=== PATIENT | female | born 1990 | race Caucasian/White ===

== ENCOUNTER 2016-08-12 00:04 | Inpatient (IN) | payer OTHER ==
[2016-08-12] MEDS ORDERED: SODIUM CHLORIDE 1,000 ML IV STA (00:27)
[2016-08-12] MEDS ORDERED: ONDANSETRON 4 MG/2 ML VIAL IVPB ONE (00:27)
--- NOTE | 2016-08-12 00:27 | PDOC ---
History of Present Illness - History of Present Illness Initial Comments: 08/12/16 01:33 Patient is a 25 year old female patient with significant medical hx of asthma, constipation and MR who is presenting to the ED with four days of cough, nausea , vomiting and diarrhea. Patient was seen yesterday in the ED for the same complaint along with low grade fever, muscle aches and abdominal pain. Patient is accompanied by parent who reports that the patients symptoms have persisted since her discharge. Today the patient had an episode of vomiting and three episodes of loose stooling. She also endorses the patients cough, nasal congestion, and fever have persisted. LNMP: 08/01/16 PMD: Raegan Islas MD ([facility]) <Sheryl Waters - Last Filed: 08/12/16 01:45> <Naomi Bautista - Last Filed: 08/12/16 02:16> <Jere Proctor - Last Filed: 08/12/16 05:10> - General Chief Complaint: Nausea/Vomiting Stated Complaint: VOMITING, ABDOMINAL PAIN Time Seen by Provider: 08/12/16 00:19 Past History <Sheryl Waters - Last Filed: 08/12/16 01:45> - Past Medical History Asthma: Yes (WEAK RESPIRATORY SYSTEM) GI Disorders: Yes (CONSTIPATION) - Psycho/Social/Smoking Cessation Hx Anxiety: No Suicidal Ideation: No Smoking Status: No Smoking History: Never smoked Number of Cigarettes Smoked Daily: 0 Information on smoking cessation initiated: No Hx Alcohol Use: No Drug/Substance Use Hx: No Substance Use Type: None <Naomi Bautista - Last Filed: 08/12/16 02:16> <Jere Proctor - Last Filed: 08/12/16 05:10> - Past Medical History Allergies/Adverse Reactions: Allergies Allergy/AdvReac Type Severity Reaction Status Date / Time amoxicillin [Amoxicillin] Allergy Intermediate Rash Verified 08/11/16 02:33 Home Medications: Ambulatory Orders Levofloxacin [Levaquin] 750 mg PO DAILY 08/12/16 Abd/GI Specific PMHX - Complaint Specific PMHX Colitis: No Diverticulitis: No Gall Bladder Disease: No GERD: No Hepatitis: No Irritable Bowel Synd (IBS): No Pancreatitis: No GI Ulcer Disease: No <Naomi Bautista - Last Filed: 08/12/16 02:16> Review of Systems - Review of Systems Comments:: 08/12/16 01:33 Provided by Parent: CONSTITUTIONAL: Present: fever, body aches Absent: chills, diaphoresis, generalized weakness, malaise, loss of appetite HEENT: Present: rhinorrhea, nasal congestion Absent: throat pain, throat swelling, difficulty swallowing, mouth swelling, ear pain, eye pain, visual changes CARDIOVASCULAR: Absent: chest pain, syncope, palpitations, irregular heart rate, lightheadedness , peripheral edema RESPIRATORY: Present: cough Absent: shortness of breath, dyspnea with exertion, orthopnea, wheezing, stridor , hemoptysis GASTROINTESTINAL: Present: nausea, vomiting, diarrhea Absent: abdominal pain, abdominal distension, constipation, melena, hematochezia GENITOURINARY: Absent: dysuria, frequency, urgency, hesitancy, hematuria, flank pain, genital pain MUSCULOSKELETAL: Absent: myalgia, arthralgia, joint swelling SKIN: Absent: rash, itching, pallor HEMATOLOGIC/IMMUNOLOGIC: Absent: easy bleeding, easy bruising, lymphadenopathy, frequent infections ENDOCRINE: Absent: unexplained weight gain, unexplained weight loss, heat intolerance, cold intolerance NEUROLOGIC: Absent: headache, focal weakness or paresthesia, dizziness, unsteady gait, seizure, mental status changes, bladder or bowel incontinence. PSYCHIATRIC: Absent: anxiety, depression, suicidal or homicidal ideation, hallucinations <Sheryl Waters - Last Filed: 08/12/16 01:45> *Physical Exam - Vital Signs Last Vital Signs Temp Pulse Resp BP Pulse Ox 99.1 F 104 H 15 124/81 100 08/12/16 00:25 08/12/16 00:25 08/12/16 00:25 08/12/16 00:25 08/12/16 00:25 - Physical Exam Comments: 08/12/16 01:34 GENERAL: Well developed, well nourished. Awake and alert. No acute distress. HEENT: Normocephalic, atraumatic. PERRLA, EOMI. No conjunctival pallor. Sclera are non- icteric. Moist mucous membranes. Oropharynx is clear. NECK: Supple. Full ROM. No JVD. Carotid pulses 2+ and symmetric, without bruits. No thyromegaly. No lymphadenopathy. CARDIOVASCULAR: Mild tachycardia. No murmurs, rubs, or gallops. Distal pulses are 2+ and symmetric. PULMONARY: No evidence of respiratory distress. Few scattered rhonchi. No wheezing or rales. ABDOMINAL: Soft. Non-tender. Non-distended. No rebound or guarding. No organomegaly. Normoactive bowel sounds. MUSCULOSKELETAL: Normal range of motion at all joints. No bony deformities or tenderness. No CVA tenderness. EXTREMITIES: No cyanosis. No clubbing. No edema. No calf tenderness. SKIN: Warm and dry. Normal capillary refill. No rashes. No jaundice. NEUROLOGICAL: Alert, awake, appropriate. Cranial nerves 2-12 intact. Normal speech. <Sheryl Waters - Last Filed: 08/12/16 01:45> - Vital Signs Last Vital Signs Temp Pulse Resp BP Pulse Ox 99.1 F 104 H 15 124/81 100 08/12/16 00:25 08/12/16 00:25 08/12/16 00:25 08/12/16 00:25 08/12/16 00:25 <Naomi Bautista - Last Filed: 08/12/16 02:16> - Vital Signs Last Vital Signs Temp Pulse Resp BP Pulse Ox 99.1 F 104 H 15 124/81 100 08/12/16 00:25 08/12/16 00:25 08/12/16 00:25 08/12/16 00:25 08/12/16 00:25 <Jere Proctor - Last Filed: 08/12/16 05:10> ED Treatment Course - LABORATORY CBC & Chemistry Diagram: 08/12/16 01:05 08/12/16 01:05 - ADDITIONAL ORDERS Additional order review: Laboratory Results 08/12/16 01:05 Serum , Qual Negative 08/12/16 01:05 RBC 4.24 MCV 77.6 L MCHC 34.2 RDW 18.2 H MPV 9.3 Neutrophils % 65.9 Lymphocytes % 16.9 Monocytes % 17.0 H Eosinophils % 0.1 Basophils % 0.1 - Medications Given in the ED: ED Medications Discontinued Medications Generic Name Dose Route Start Last Admin Trade Name Freq PRN Reason Stop Dose Admin Sodium Chloride 1,000 mls @ 1,000 mls/hr 08/12/16 00:27 08/12/16 01:10 Normal Saline - IV 08/12/16 01:26 1,000 mls/hr ASDIR STA Administration Ondansetron HCl 4 mg 08/12/16 00:27 08/12/16 01:11 Zofran Injection IVPB 08/12/16 00:28 4 mg ONCE ONE Administration <Sheryl Waters - Last Filed: 08/12/16 01:45> - LABORATORY CBC & Chemistry Diagram: 08/12/16 01:05 08/12/16 01:05 <Naomi Bautista - Last Filed: 08/12/16 02:16> - LABORATORY CBC & Chemistry Diagram: 08/12/16 01:05 08/12/16 01:05 - ADDITIONAL ORDERS Additional order review: Laboratory Results 08/12/16 08/12/16 08/12/16 02:13 01:05 01:05 Anticoagulation Therapy Y Puncture Site Right radial ABG pH 7.44 ABG pCO2 at Pt Temp 37.8 ABG pO2 at Pt Temp 111.0 H ABG HCO3 25.1 ABG O2 Sat (Measured) 98.2 ABG O2 Content 14.1 L ABG Base Excess 1.4 Juan José Test Positive O2 Delivery Device Nonrebreather Oxygen Flow Rate 100% Vent Mode Y Vent Rate Y Mechanical Rate Y Pressure Support Vent Y Sodium 142 Potassium 3.5 Chloride 101 Carbon Dioxide 29 Anion Gap 12 BUN 8 D Creatinine 0.8 D Creat Clearance w eGFR > 60 Random Glucose 98 Calcium 8.1 L Total Bilirubin 0.5 D AST 24 ALT 21 Alkaline Phosphatase 65 Total Protein 6.7 Albumin 3.4 Lipase 144 Serum , Qual Negative 08/12/16 01:05 RBC 4.24 MCV 77.6 L MCHC 34.2 RDW 18.2 H MPV 9.3 Neutrophils % 65.9 Lymphocytes % 16.9 Monocytes % 17.0 H Eosinophils % 0.1 Basophils % 0.1 - Medications Given in the ED: ED Medications Discontinued Medications Generic Name Dose Route Start Last Admin Trade Name Freq PRN Reason Stop Dose Admin Albuterol/Ipratropium 1 amp 08/12/16 01:30 08/12/16 01:39 Duoneb - NEB 08/12/16 01:31 1 amp ONCE ONE Administration Sodium Chloride 1,000 mls @ 1,000 mls/hr 08/12/16 00:27 08/12/16 01:10 Normal Saline - IV 08/12/16 01:26 1,000 mls/hr ASDIR STA Administration Aztreonam 1 gm/ Dextrose 50 mls @ 100 mls/hr 08/12/16 02:47 08/12/16 03:10 IVPB 08/12/16 03:16 100 mls/hr ONCE ONE Administration Protocol Ondansetron HCl 4 mg 08/12/16 00:27 08/12/16 01:11 Zofran Injection IVPB 08/12/16 00:28 4 mg ONCE ONE Administration <Jere Proctor - Last Filed: 08/12/16 05:10> Medical Decision Making - Medical Decision Making 08/12/16 01:38 25 yo female with past medicakl history of MR,asthma ,recurrent sinusitis was seen last night for fever NVD and cough LAST NIGHT her -influenza was negaitve yesterday cxr -please note that the radiologist read it as a possible early left lower infiltrate -she has a UTi and was started on levaquin -she returns with family tonight for same symptoms 08/12/16 01:42 08/12/16 02:03 PLAN- will do po challenge <Naomi Bautista - Last Filed: 08/12/16 02:16> *DC/Admit/Observation/Transfer - Attestations Scribe Attestion: 08/12/16 01:35 Documentation prepared by Sheryl Waters, acting as medical equipment repair technician for Naomi Bautista MD. <Sheryl Waters - Last Filed: 08/12/16 01:45> <Naomi Bautista - Last Filed: 08/12/16 02:16> - Discharge Dispostion Admit: Yes <Jere Proctor - Last Filed: 08/12/16 05:10> Diagnosis at time of Disposition: Pneumonia - Discharge Dispostion Condition at time of disposition: Stable - Referrals Referrals: Raegan Islas [Primary Care Provider] -
[2016-08-12] MEDS ORDERED: ONDANSETRON 4 MG/2 ML VIAL ONE (00:38)
[2016-08-12 01:16] LABS: BASOPHIL 0.1 % (0-2.0); EOSINOPHIL 0.1 % (0-4.5); MCH 26.5 pg (25.7-33.7); MCHC 34.2 g/dl (32.0-36.0); MEAN CELL VOLUME 77.6 fl (80-96); MEAN PLT VOLUME 9.3 fl (7.5-11.1); NEUTROPHILS 65.9 % (42.8-82.8); PLATELET COUNT 175 K/MM3 (134-434); RDW 18.2 % (11.6-15.6); WHITE BLOOD COUNT 4.5 K/mm3 (4.0-10.0)
[2016-08-12] MEDS ORDERED: ALBUTEROL SO4 2.5/IPRATROPIUM 0.5 INH SOL 3 ML VIAL.NEB. NEB ONE ×2 (01:30→01:48)
[2016-08-12 01:36] LABS: ALBUMIN 3.4 g/dl (3.4-5.0); ALK PHOS 65 U/L (45-117); ANION GAP 12 (8-16); BILIRUBIN,TOTAL 0.5 mg/dL (0.2-1.0); CALCIUM 8.1 mg/dL (8.5-10.1); CO2 29 mmol/L (21-32); CREATININE 0.8 mg/dL (0.55-1.02); GLUCOSE,RANDOM 98 mg/dL (74-106); SGOT/AST 24 U/L (15-37); SGPT/ALT 21 U/L (12-78); TOT PROT 6.7 g/dl (6.4-8.2)
[2016-08-12 02:26] LABS: ARTERIAL BLD GAS O2 SATURATION 98.2 % (90-98.9); ARTERIAL BLOOD GAS BASE EXCESS 1.4 meq/l (-2-2); ARTERIAL BLOOD GAS HCO3 25.1 meq/L (22-26); ARTERIAL BLOOD GAS pH 7.44 (7.35-7.45)
[2016-08-12 02:27] LABS: ALLENS TEST POSITIVE; ART PUNCT SITE RIGHT RADIAL; LPM/O2% 100%; PT. ON O2? YES; TYPE OF O2 NONREBREATHER
[2016-08-12] MEDS ORDERED: AZTREONAM 1 GM in DEXTROSE 5%-WATER - 50 ML IVPB ONE (02:47)
[2016-08-12 06:22] LABS: URINE APPEARANCE CLEAR; URINE BILIRUBIN NEGATIVE (NEGATIVE); URINE BLOOD NEGATIVE (NEGATIVE); URINE COLOR LTYELLOW; URINE GLUCOSE (UA) NEGATIVE (NEGATIVE); URINE KETONE 1+ (NEGATIVE); URINE LEUK ESTERASE NEGATIVE (NEGATIVE); URINE NITRITE NEGATIVE (NEGATIVE); URINE PROTEIN NEGATIVE (NEGATIVE); URINE UROBILINOGEN NEGATIVE E.U./dl (0.2-1.0)
[2016-08-12] MEDS ORDERED: ONDANSETRON 4 MG/2 ML VIAL IVPB PRN (06:42)
--- NOTE | 2016-08-12 06:49 | HP ---
CHIEF COMPLAINT: cough PCP: @[facility] HISTORY OF PRESENT ILLNESS: This is a 25 year old female with a past medical history of asthma, constipation , migraines, cerebral palsy and Down Syndrome who presented to the ED with a 4 day history of cough, nausea, vomiting and diarrhea. Pt was seen in the ED yesterday and treated with levaquin but mother feels she isn't any better. She had several episodes of vomiting prior to arrival to the ED, none since receiving zofran. Pt with no other complaints, mom denies any c/o chest pain. Mother also denies any hospitalization or institutional stay within the past 30 days. ER course was notable for: (1) Aztreonam given in ED (2) CXR + LLL infiltrate Recent Travel: mother denies PAST MEDICAL HISTORY: asthma constipation migraines GERD cerebral palsy and Down Syndrome PAST SURGICAL HISTORY: cyst removal posterior neck Social History: Smoking: denies Alcohol: denies Drugs: denies Family History: mom-brCA, HTN dad-HTN Allergies amoxicillin [Amoxicillin] Allergy (Intermediate, Verified 08/11/16 02:33) Rash Home Medications 3 Medication Instructions Recorded Albuterol 2.5/Ipratropium 0.5 1 neb NEB Q6H 08/12/16 [Duoneb -] Beclomethasone Dipropionate [Qvar] 8.7 gm IH DAILY 08/12/16 Levofloxacin [Levaquin] 750 mg PO DAILY 08/12/16 Loratadine [Claritin -] 10 mg PO DAILY 08/12/16 Mirabegron [Myrbetriq] 50 mg PO DAILY 08/12/16 Montelukast Na [Singulair -] 10 mg PO DAILY 08/12/16 Omeprazole 20 mg PO DAILY 08/12/16 Sennosides [Senna] 17.2 mg PO BID 08/12/16 Solifenacin Succinate [VESIcare] 10 mg PO DAILY 08/12/16 Topiramate [Topamax] 50 mg PO BID 08/12/16 REVIEW OF SYSTEMS CONSTITUTIONAL: Absent: fever, chills, diaphoresis, generalized weakness, malaise, loss of appetite, weight change HEENT: Absent: rhinorrhea, nasal congestion, throat pain, throat swelling, difficulty swallowing, mouth swelling, ear pain, eye pain, visual changes CARDIOVASCULAR: Absent: chest pain, syncope, palpitations, irregular heart rate, lightheadedness , peripheral edema RESPIRATORY: Present: cough Absent: shortness of breath, dyspnea with exertion, orthopnea, wheezing, stridor , hemoptysis GASTROINTESTINAL: Present: nausea, vomiting, diarrhea Absent: abdominal distension, constipation, melena, hematochezia GENITOURINARY: Absent: dysuria, frequency, urgency, hesitancy, hematuria, flank pain, genital pain MUSCULOSKELETAL: Absent: myalgia, arthralgia, joint swelling, back pain, neck pain SKIN: Absent: rash, itching, pallor HEMATOLOGIC/IMMUNOLOGIC: Absent: easy bleeding, easy bruising, lymphadenopathy, frequent infections ENDOCRINE: Absent: unexplained weight gain, unexplained weight loss, heat intolerance, cold intolerance NEUROLOGIC: Absent: headache, focal weakness or paresthesias, dizziness, unsteady gait, seizure, mental status changes, bladder or bowel incontinence PSYCHIATRIC: Absent: anxiety, depression, suicidal or homicidal ideation, hallucinations. PHYSICAL EXAMINATION Vital Signs - 24 hr 3 08/12/ 00:25 Temperature 99.1 F Pulse Rate 104 H Respiratory 15 Rate Blood Pressure 124/81 O2 Sat by Pulse 100 Oximetry (%) GENERAL: Awake, alert, and oriented to person, in no acute distress. HEAD: Normal with no signs of trauma. EYES: Pupils equal, round and reactive to light, extraocular movements intact, sclera anicteric, conjunctiva clear. No lid lag. EARS, NOSE, THROAT: Ears normal, nares patent, oropharynx clear without exudates. Moist mucous membranes. NECK: Normal range of motion, supple without lymphadenopathy, JVD, or masses. LUNGS: No wheezes. No accessory muscle use. + crackles Bilat bases HEART: Regular rate and rhythm, normal S1 and S2 without murmur, rub or gallop. ABDOMEN: Soft, nontender, not distended, normoactive bowel sounds, no guarding, no rebound, no masses. No hepatomegaly or splenomegaly. MUSCULOSKELETAL: Normal range of motion at all joints. No bony deformities or tenderness. No CVA tenderness. UPPER EXTREMITIES: 2+ pulses, warm, well-perfused. No cyanosis. No clubbing. Cap refill <2 seconds. No peripheral edema. LOWER EXTREMITIES: 2+ pulses, warm, well-perfused. No calf tenderness. No peripheral edema. NEUROLOGICAL: Cranial nerves II-XII intact. Normal speech. Normal gait. PSYCHIATRIC: Cooperative. Good eye contact. Appropriate mood and affect. SKIN: Warm, dry, normal turgor, no rashes or lesions noted. Laboratory Results - last 24 hr 3 08/12/16 08/12/16 08/12/16 01:05 01:05 01:05 WBC 4.5 RBC 4.24 Hgb 11.2 Hct 32.9 MCV 77.6 L MCHC 34.2 RDW 18.2 H Plt Count 175 MPV 9.3 Neutrophils % 65.9 Lymphocytes % 16.9 Monocytes % 17.0 H Eosinophils % 0.1 Basophils % 0.1 Anticoagulation Therapy Puncture Site ABG pH ABG pCO2 at Pt Temp ABG pO2 at Pt Temp ABG HCO3 ABG O2 Sat (Measured) ABG O2 Content ABG Base Excess Juan José Test O2 Delivery Device Oxygen Flow Rate Vent Mode Vent Rate Mechanical Rate Pressure Support Vent Sodium 142 Potassium 3.5 Chloride 101 Carbon Dioxide 29 Anion Gap 12 BUN 8 D Creatinine 0.8 D Creat Clearance w eGFR > 60 Random Glucose 98 Calcium 8.1 L Total Bilirubin 0.5 D AST 24 ALT 21 Alkaline Phosphatase 65 Total Protein 6.7 Albumin 3.4 Lipase 144 Serum , Qual Negative 3 ABG pH 7.44 (7.35-7.45) 08/12/16 02:13 ABG pCO2 at Pt Temp 37.8 mmHg (35-45) 08/12/16 02:13 ABG pO2 at Pt Temp 111.0 mmHg (80-100) H 08/12/16 02:13 ABG HCO3 25.1 meq/L (22-26) 08/12/16 02:13 ABG O2 Sat (Measured) 98.2 % (90-98.9) 08/12/16 02:13 ABG O2 Content 14.1 % vol (15-22) L 08/12/16 02:13 ABG Base Excess 1.4 meq/l (-2-2) 08/12/16 02:13 CXR: FINDINGS: Positive for opacification of the left lung base most likely due to left lower lobe infiltrate/pneumonitis possibly with associated left pleural effusion. The remainder of the lungs are clear. The heart size is magnified on this portable AP view but is probably somewhat enlarged. Lungs are clear. Jenn are normal. ASSESSMENT/PLAN: 25yF with PMH asthma, constipation, migraines, cerebral palsy and Down Syndrome presented to the ED with cough, nausea, vomiting and diarrhea. She is being admitted for pneumonia. Community Acquired Pneumonia/asthma - change aztreonam to ceftriaxone (verified with mom, pt has had ceftin in past without allergic reaction) and zithromax - duonebs - cont home qvar, singulair and loratadine gaastroenteritis - no longer vomiting - received IVF in ED, now tolerating po, trial of clear liquids, advance diet as tolerated. GERD - change home omeprazole to protonix constipation - hold home senna for now given LBM overactive bladder - cont home myrbetriq and vesicare migraines - cont home topamax DVT PPX - low risk, expected LOS <48h FEN - tolerating po now, defer IVF - BMP WNL - clear liquid diet, advance as tolerated Dispo: Pt currently requires inpatient care. Visit type - Emergency Visit Emergency Visit: Yes ED Registration Date: 08/12/16 Care time: The patient presented to the Emergency Department on the above date and was hospitalized for further evaluation of their emergent condition. - New Patient This patient is new to me today: Yes Date on this admission: 08/12/16 - Critical Care Critical Care patient: No
[2016-08-12] MEDS ORDERED: PANTOPRAZOLE 20 MG TABLET (FP) PO ONE (07:18)
[2016-08-12] MEDS ORDERED: PANTOPRAZOLE 40 MG TABLET (FP) ONE (08:29)
[2016-08-12] MEDS ORDERED: SOLIFENACIN SUCCINATE 5 MG TAB (FP) PO SCH (10:00)
[2016-08-12] MEDS ORDERED: TOPIRAMATE 25 MG TABLET (FP) PO SCH (10:00)
[2016-08-12] MEDS ORDERED: AZITHROMYCIN IVPB 250 ML IVPB SCH (10:00)
[2016-08-12] MEDS: SOLIFENACIN SUCCINATE 5 MG TAB (FP) PO SCH (11:26)
[2016-08-12] MEDS: TOPIRAMATE 25 MG TABLET (FP) PO SCH ×2 (11:26→22:15)
[2016-08-12] MEDS: MONTELUKAST NA 10 MG TABLET PO SCH (11:26)
[2016-08-12] MEDS: LORATADINE 10 MG TABLET PO SCH (11:26)
--- NOTE | 2016-08-12 11:50 | PN ---
Physical Exam: SUBJECTIVE: Patient seen and examined at bedside. Mother present. OBJECTIVE: Vital Signs Period Temp Pulse Resp BP Sys/Mejia Pulse Ox Last 24 Hr 97.9 F 89 18 123/71 96-97 GENERAL: The patient is awake, alert, in no acute distress. Answers questions simply and appropriately. HEAD: Normal with no signs of trauma. EYES: PERRL, extraocular movements intact, sclera anicteric, conjunctiva clear. No ptosis. ENT: Ears normal, nares patent, oropharynx injected appearance; moist mucous membranes. LUNGS: Bibasilar crackles, L>R; no wheezing HEART: Regular rate and rhythm, S1, S2 without murmur, rub or gallop. ABDOMEN: Soft, nontender, nondistended, normoactive bowel sounds, no guarding, no rebound EXTREMITIES: 2+ pulses, warm, well-perfused, no edema. NEUROLOGICAL: Cranial nerves II through XII grossly intact. Normal speech, gait not observed. Active Medications Generic Name Dose Route Start Last Admin Trade Name Freq PRN Reason Stop Dose Admin Albuterol/Ipratropium 1 amp 08/12/16 12:00 Duoneb - NEB QIDR ELEUTERIO Ceftriaxone Sodium 50 mls @ 100 mls/hr 08/12/16 10:00 Rocephin 1gm Ivpb (Pre-Docked) IVPB DAILY ELEUTERIO Azithromycin 250 mls @ 250 mls/hr 08/12/16 10:00 08/12/16 11:26 Zithromax 500mg Ivpb (Pre-Docked) IVPB 250 mls/hr DAILY ELEUTERIO Administration Loratadine 10 mg 08/12/16 10:00 08/12/16 11:26 Claritin - PO 10 mg DAILY ELEUTERIO Administration Montelukast Sodium 10 mg 08/12/16 10:00 08/12/16 11:26 Singulair - PO 10 mg DAILY ELEUTERIO Administration Non-Formulary Medication 8.7 gm 08/12/16 10:00 Beclomethasone Dipropionate [Qvar] IH DAILY ELEUTERIO Non-Formulary Medication 50 mg 08/12/16 10:00 Mirabegron [Myrbetriq] PO DAILY ELEUTERIO Ondansetron HCl 4 mg 08/12/16 06:42 Zofran Injection IVPB Q6H PRN NAUSEA Solifenacin 10 mg 08/12/16 10:00 08/12/16 11:26 Vesicare - PO 10 mg DAILY ELEUTERIO Administration Topiramate 50 mg 08/12/16 10:00 08/12/16 11:26 Topamax - PO 50 mg BID ELEUTERIO Administration ASSESSMENT/PLAN: 25 year-old woman with a PMH of cerebral palsy, Down's syndrome, asthma,and migraines. Admitted for LLL pneumonia. Bacterial LLL pneumonia --worsening LLL infiltrate seen on CXR --afebrile, no leukocytosis --flu negative, blood cultures pending, sputum culture ordered --azithromycin (day #1), ceftriaxone (day #1) --duonebs Sinusitis/Otitis media --completed abx course one week ago, cannot recall name of abx Asthma --duonebs --continue home Singulair, loratadine Migraines --stable Diarrhea --on antibiotics last week for ear infection/sinusitis --send off c.diff Cerebral palsy Down's syndrome --at baseline F/E/N Fluids: PO intake adequate Electrolytes: replete as indicated Nutrition: clears DVT prophylaxis: lovenox, oob, ambulation Dispo: continues to require inpatient care. Full Code. Visit type - Emergency Visit Emergency Visit: Yes ED Registration Date: 08/12/16 Care time: The patient presented to the Emergency Department on the above date and was hospitalized for further evaluation of their emergent condition. - New Patient This patient is new to me today: Yes Date on this admission: 08/12/16 - Critical Care Critical Care patient: No
[2016-08-12 12:54] VITALS: BMI 26.5
--- NOTE | 2016-08-12 14:22 | CONSULT ---
Consult Consult Specialty:: infectious diseases Reason for Consultation:: pneumonia - History of Present Illness Chief Complaint: cough,sob History of Present Illness: 25 year old female with a past medical history of asthma, constipation, migraines, cerebral palsy and Down Syndrome who came to the hospital with a 4 day history of cough, nausea, vomiting and diarrhea. patient was initially in the ER and was treated with levaquin and send home patient did not show improvement after patient patient has taken levaquin for couple of days. patient now started on ceftriaxone and zithromax her chest xray ahs progressively worsened and there is a new infiltrate patient is coughing a lot and producing yellow secretions also she looks to be very weak - History Source History Provided By: Medical Record, Transfer Record Limitations to Obtaining History: Clinical Condition - Past Medical History ...LMP: 08/01/16 ...: No - Alcohol/Substance Use Hx Alcohol Use: No - Smoking History Smoking history: Never smoked Aproximately how many cigarettes per day: 0 Home Medications - Allergies Allergies/Adverse Reactions: Allergies Allergy/AdvReac Type Severity Reaction Status Date / Time amoxicillin [Amoxicillin] Allergy Intermediate Rash Verified 08/11/16 02:33 - Home Medications Home Medications: Ambulatory Orders Albuterol 2.5/Ipratropium 0.5 [Duoneb -] 1 neb NEB Q6H 08/12/16 Beclomethasone Dipropionate [Qvar] 8.7 gm IH DAILY 08/12/16 Levofloxacin [Levaquin] 750 mg PO DAILY 08/12/16 Loratadine [Claritin -] 10 mg PO DAILY 08/12/16 Mirabegron [Myrbetriq] 50 mg PO DAILY 08/12/16 Montelukast Na [Singulair -] 10 mg PO DAILY 08/12/16 Omeprazole 20 mg PO DAILY 08/12/16 Sennosides [Senna] 17.2 mg PO BID 08/12/16 Solifenacin Succinate [VESIcare] 10 mg PO DAILY 08/12/16 Topiramate [Topamax] 50 mg PO BID 08/12/16 Review of Systems Unable to obtain ROS, reason: unable to obtain Physical Exam Vital Signs: Vital Signs Temperature 97.9 F 08/12/16 08:00 Pulse Rate 89 08/12/16 07:34 Respiratory Rate 18 08/12/16 07:34 Blood Pressure 123/71 02/27/17 07:34 O2 Sat by Pulse Oximetry (%) 97 08/12/16 07:35 Constitutional: Yes: Mild Distress Eyes: Yes: Conjunctiva Clear HENT: Yes: Atraumatic Neck: Yes: Supple, Trachea Midline Cardiovascular: Yes: Regular Rate and Rhythm Respiratory: Yes: Regular, Poor Air Entry, Rhonchi Gastrointestinal: Yes: Normal Bowel Sounds, Soft Musculoskeletal: Yes: Muscle Weakness Extremities: Yes: WNL Neurological: Yes: Alert, Other Imaging - Results Chest X-ray: Report Reviewed, Image Reviewed Assessment/Plan this patient continues to worsen inspite of taking levaquin now she is on ceftriaxone and zithro 25yF with PMH asthma, constipation, migraines, cerebral palsy and Down Syndrome with cough, nausea, vomiting and diarrhea. pneumonia GERD overactive bladder migraines i think we can go ahead and stop zithromax i am going to add vanco to her regimen if patient does not improve then i will change ceftriaxone to carbapenam patient could very well have had influenza which could have given to all of her symptoms plan d/c zithro will add vanco hydration await for all cx report
[2016-08-12] MEDS: CEFTRIAXONE 50 ML IVPB SCH (15:21)
[2016-08-12] MEDS: VANCOMYCIN 1 GRAM (PRE-DOCKED) 250 ML IVPB SCH (16:20)
[2016-08-12] MEDS: ALBUTEROL SO4 2.5/IPRATROPIUM 0.5 INH SOL 3 ML VIAL.NEB. NEB SCH (19:14)
[2016-08-13] MEDS: ALBUTEROL SO4 2.5/IPRATROPIUM 0.5 INH SOL 3 ML VIAL.NEB. NEB SCH ×3 (06:30→17:06)
[2016-08-13 07:53] LABS: MCH 26.4 pg (25.7-33.7); MCHC 33.5 g/dl (32.0-36.0); MEAN CELL VOLUME 78.8 fl (80-96); MEAN PLT VOLUME 9.2 fl (7.5-11.1); PLATELET COUNT 176 K/MM3 (134-434); RDW 18.4 % (11.6-15.6); WHITE BLOOD COUNT 4.8 K/mm3 (4.0-10.0)
[2016-08-13 09:04] LABS: CALCIUM 8.4 mg/dL (8.5-10.1); CREATININE 0.7 mg/dL (0.55-1.02); MAGNESIUM 2.3 mg/dL (1.8-2.4)
[2016-08-13] MEDS: CEFTRIAXONE 50 ML IVPB SCH (10:08)
[2016-08-13] MEDS: MONTELUKAST NA 10 MG TABLET PO SCH (10:17)
[2016-08-13] MEDS: TOPIRAMATE 25 MG TABLET (FP) PO SCH ×2 (10:17→22:39)
[2016-08-13] MEDS: ENOXAPARIN NA (PORCINE) 40 MG/0.4 ML DISP.SYRIN SQ SCH (10:18)
[2016-08-13] MEDS: SOLIFENACIN SUCCINATE 5 MG TAB (FP) PO SCH (10:18)
[2016-08-13] MEDS: LORATADINE 10 MG TABLET PO SCH (10:18)
[2016-08-13] MEDS: VANCOMYCIN 1 GRAM (PRE-DOCKED) 250 ML IVPB SCH (10:47)
--- NOTE | 2016-08-13 11:42 | PN ---
Physical Exam: SUBJECTIVE: Patient seen and examined oob to chair. Says feels better. Numerous sputum-tissues on tray. OBJECTIVE: Vital Signs Period Temp Pulse Resp BP Sys/Mejia Pulse Ox Last 24 Hr 98.6 F-99.8 F 86-98 16-22 110-124/61-72 96 GENERAL: The patient is awake, alert, in no acute distress. Answers questions simply and appropriately. HEAD: Normal with no signs of trauma. EYES: PERRL, extraocular movements intact, sclera anicteric, conjunctiva clear. No ptosis. ENT: Ears normal, nares patent, oropharynx injected appearance; moist mucous membranes. LUNGS:+ Cough; bibasilar crackles, L>R; no wheezing HEART: Regular rate and rhythm, S1, S2 without murmur, rub or gallop. ABDOMEN: Soft, nontender, nondistended, normoactive bowel sounds, no guarding, no rebound EXTREMITIES: 2+ pulses, warm, well-perfused, no edema. NEUROLOGICAL: Cranial nerves II through XII grossly intact. Normal speech, gait not observed. Laboratory Results - last 24 hr 08/13/16 08/13/16 06:45 06:45 WBC 4.8 RBC 4.32 Hgb 11.4 Hct 34.1 MCV 78.8 L MCHC 33.5 RDW 18.4 H Plt Count 176 MPV 9.2 Neutrophils % 55.0 Lymphocytes % 28.0 D Monocytes % 16.0 H Promyelocytes 1 Differential Comment Manual diff done Sodium 143 Potassium 3.8 Chloride 106 Carbon Dioxide 25 Anion Gap 12 BUN 5 L D Creatinine 0.7 Random Glucose 87 Calcium 8.4 L Phosphorus 3.0 Magnesium 2.3 Active Medications Generic Name Dose Route Start Last Admin Trade Name Freq PRN Reason Stop Dose Admin Albuterol/Ipratropium 1 amp 08/12/16 12:00 08/13/16 06:30 Duoneb - NEB Not Given QIDR ELEUTERIO Enoxaparin Sodium 40 mg 08/13/16 10:00 08/13/16 10:18 Lovenox - SQ 40 mg DAILY ELEUTERIO Administration Ceftriaxone Sodium 50 mls @ 100 mls/hr 08/12/16 10:00 08/13/16 10:08 Rocephin 1gm Ivpb (Pre-Docked) IVPB 100 mls/hr DAILY ELEUTERIO Administration Vancomycin HCl 250 mls @ 166.667 mls/hr 08/12/16 14:45 08/13/16 10:47 Vancomycin (Pre-Docked) IVPB 166.667 mls/hr DAILY ELEUTERIO Administration Protocol Loratadine 10 mg 08/12/16 10:00 08/13/16 10:18 Claritin - PO 10 mg DAILY ELEUTERIO Administration Montelukast Sodium 10 mg 08/12/16 10:00 08/13/16 10:17 Singulair - PO 10 mg DAILY ELEUTERIO Administration Non-Formulary Medication 8.7 gm 08/12/16 10:00 Beclomethasone Dipropionate [Qvar] IH DAILY ELEUTERIO Non-Formulary Medication 50 mg 08/12/16 10:00 Mirabegron [Myrbetriq] PO DAILY ELEUTERIO Ondansetron HCl 4 mg 08/12/16 06:42 Zofran Injection IVPB Q6H PRN NAUSEA Solifenacin 10 mg 08/12/16 10:00 08/13/16 10:18 Vesicare - PO 10 mg DAILY ELEUTERIO Administration Topiramate 50 mg 08/12/16 10:00 08/13/16 10:17 Topamax - PO 50 mg BID ELEUTERIO Administration ASSESSMENT/PLAN 25 year-old woman with a PMH of cerebral palsy, Down's syndrome, asthma,and migraines. Admitted for LLL pneumonia. Bacterial LLL pneumonia --LLL infiltrate seen on CXR --afebrile, no leukocytosis --flu negative, blood cultures pending, sputum culture pending --ceftriaxone (day #2), vanc (day #2); azithromycin dc'd 08/12 --duonebs Sinusitis/Otitis media --completed abx course one week ago, cannot recall name of abx Asthma --duonebs --continue home Singulair, loratadine Migraines --stable Diarrhea --resolved Cerebral palsy Down's syndrome --at baseline F/E/N Fluids: PO intake adequate Electrolytes: replete as indicated Nutrition: regular diet DVT prophylaxis: lovenox, oob, ambulation Dispo: continues to require inpatient care. Full Code. Visit type - Emergency Visit Emergency Visit: Yes ED Registration Date: 08/12/16 Care time: The patient presented to the Emergency Department on the above date and was hospitalized for further evaluation of their emergent condition. - New Patient This patient is new to me today: No - Critical Care Critical Care patient: No
--- NOTE | 2016-08-13 12:25 | PN ---
Progress Note, Physician History of Present Illness: patient doing much better coughing much less says she feels much better - Current Medication List Current Medications: Active Medications Albuterol/Ipratropium (Duoneb -) 1 amp NEB QIDR [facility] Last Admin: 08/13/16 11:10 Dose: 1 amp Enoxaparin Sodium (Lovenox -) 40 mg SQ DAILY [facility] Last Admin: 08/13/16 10:18 Dose: 40 mg Ceftriaxone Sodium (Rocephin 1gm Ivpb (Pre-Docked)) 50 mls @ 100 mls/hr IVPB DAILY [facility] Last Admin: 08/13/16 10:08 Dose: 100 mls/hr Vancomycin HCl (Vancomycin (Pre-Docked)) 250 mls @ 166.667 mls/hr IVPB DAILY [facility] PRN Reason: Protocol Last Admin: 08/13/16 10:47 Dose: 166.667 mls/hr Loratadine (Claritin -) 10 mg PO DAILY [facility] Last Admin: 08/13/16 10:18 Dose: 10 mg Montelukast Sodium (Singulair -) 10 mg PO DAILY [facility] Last Admin: 08/13/16 10:17 Dose: 10 mg Non-Formulary Medication (Beclomethasone Dipropionate [Qvar]) 8.7 gm IH DAILY [facility] Non-Formulary Medication (Mirabegron [Myrbetriq]) 50 mg PO DAILY [facility] Ondansetron HCl (Zofran Injection) 4 mg IVPB Q6H PRN PRN Reason: NAUSEA Solifenacin (Vesicare -) 10 mg PO DAILY [facility] Last Admin: 08/13/16 10:18 Dose: 10 mg Topiramate (Topamax -) 50 mg PO BID [facility] Last Admin: 08/13/16 10:17 Dose: 50 mg - Objective Vital Signs: Vital Signs Temperature 98.6 F 08/13/16 06:00 Pulse Rate 86 08/13/16 06:00 Respiratory Rate 16 08/13/16 06:00 Blood Pressure 110/72 08/13/16 06:00 O2 Sat by Pulse Oximetry (%) 96 08/12/16 21:00 Constitutional: Yes: No Distress, Calm Cardiovascular: Yes: Regular Rate and Rhythm Respiratory: Yes: Regular, Poor Air Entry, Rhonchi Gastrointestinal: Yes: Normal Bowel Sounds, Soft Musculoskeletal: Yes: WNL Extremities: Yes: WNL Neurological: Yes: Alert, Oriented Psychiatric: Yes: Alert Labs: CBC, BMP 08/13/16 06:45 08/13/16 06:45 Assessment/Plan pneumonia GERD overactive bladder migraines plan continue current abx incentive urszula patient looking much better
[2016-08-13] MEDS ORDERED: PT OWN MED DRAWER 7, Y5N ONE (18:40)
[2016-08-14] MEDS: ALBUTEROL SO4 2.5/IPRATROPIUM 0.5 INH SOL 3 ML VIAL.NEB. NEB SCH ×4 (00:20→18:20)
[2016-08-14 07:57] LABS: BASOPHIL 0.2 % (0-2.0); EOSINOPHIL 0.8 % (0-4.5); MCH 26.4 pg (25.7-33.7); MCHC 34.1 g/dl (32.0-36.0); MEAN CELL VOLUME 77.5 fl (80-96); NEUTROPHILS 68.4 % (42.8-82.8); PLATELET COUNT 197 K/MM3 (134-434); RDW 17.7 % (11.6-15.6)
[2016-08-14 08:22] LABS: ALBUMIN 3.2 g/dl (3.4-5.0); ANION GAP 13 (8-16); CALCIUM 8.3 mg/dL (8.5-10.1); CO2 23 mmol/L (21-32); GLUCOSE,RANDOM 102 mg/dL (74-106); MAGNESIUM 2.1 mg/dL (1.8-2.4)
[2016-08-14 08:27] LABS: ALK PHOS 68 U/L (45-117); BILIRUBIN,TOTAL 0.4 mg/dL (0.2-1.0); CREATININE 0.7 mg/dL (0.55-1.02); SGOT/AST 17 U/L (15-37); SGPT/ALT 20 U/L (12-78); TOT PROT 6.2 g/dl (6.4-8.2)
[2016-08-14] MEDS: ENOXAPARIN NA (PORCINE) 40 MG/0.4 ML DISP.SYRIN SQ SCH (10:39)
[2016-08-14] MEDS: MONTELUKAST NA 10 MG TABLET PO SCH (10:39)
[2016-08-14] MEDS: TOPIRAMATE 25 MG TABLET (FP) PO SCH ×2 (10:39→22:05)
[2016-08-14] MEDS: LORATADINE 10 MG TABLET PO SCH (10:39)
[2016-08-14] MEDS: VANCOMYCIN 1 GRAM (PRE-DOCKED) 250 ML IVPB SCH (10:39)
[2016-08-14] MEDS: CEFTRIAXONE 50 ML IVPB SCH (10:39)
[2016-08-14] MEDS: SOLIFENACIN SUCCINATE 5 MG TAB (FP) PO SCH (10:40)
--- NOTE | 2016-08-14 15:19 | PN ---
Progress Note, Physician History of Present Illness: patient stable looking much better - Current Medication List Current Medications: Active Medications Albuterol/Ipratropium (Duoneb -) 1 amp NEB QIDR [facility] Last Admin: 08/14/16 12:00 Dose: 1 amp Enoxaparin Sodium (Lovenox -) 40 mg SQ DAILY [facility] Last Admin: 08/14/16 10:39 Dose: 40 mg Ceftriaxone Sodium (Rocephin 1gm Ivpb (Pre-Docked)) 50 mls @ 100 mls/hr IVPB DAILY [facility] Last Admin: 08/14/16 10:39 Dose: 100 mls/hr Vancomycin HCl (Vancomycin (Pre-Docked)) 250 mls @ 166.667 mls/hr IVPB DAILY [facility] PRN Reason: Protocol Last Admin: 08/14/16 10:39 Dose: 166.667 mls/hr Loratadine (Claritin -) 10 mg PO DAILY [facility] Last Admin: 08/14/16 10:39 Dose: 10 mg Montelukast Sodium (Singulair -) 10 mg PO DAILY [facility] Last Admin: 08/14/16 10:39 Dose: 10 mg Non-Formulary Medication (Beclomethasone Dipropionate [Qvar]) 8.7 gm IH DAILY [facility] Non-Formulary Medication (Mirabegron [Myrbetriq]) 50 mg PO DAILY [facility] Ondansetron HCl (Zofran Injection) 4 mg IVPB Q6H PRN PRN Reason: NAUSEA Solifenacin (Vesicare -) 10 mg PO DAILY [facility] Last Admin: 08/14/16 10:40 Dose: 10 mg Topiramate (Topamax -) 50 mg PO BID [facility] Last Admin: 08/14/16 10:39 Dose: 50 mg - Objective Vital Signs: Vital Signs Temperature 97.2 F L 08/14/16 06:00 Pulse Rate 91 H 08/14/16 06:00 Respiratory Rate 20 08/14/16 06:00 Blood Pressure 115/78 08/14/16 06:00 O2 Sat by Pulse Oximetry (%) 96 08/13/16 21:00 Constitutional: Yes: No Distress, Calm HENT: Yes: Atraumatic Cardiovascular: Yes: Regular Rate and Rhythm Respiratory: Yes: Regular, Other Gastrointestinal: Yes: Normal Bowel Sounds, Soft Musculoskeletal: Yes: WNL Extremities: Yes: WNL Neurological: Yes: Alert, Oriented Psychiatric: Yes: Alert Labs: CBC, BMP 08/14/16 06:00 08/14/16 06:00 Assessment/Plan pneumonia GERD overactive bladder migraines plan continue current abx incentive urszula patient looking much better will start deescalating abx from friday
--- NOTE | 2016-08-14 15:38 | PN ---
Physical Exam: SUBJECTIVE: Patient seen and examined at bedside. Pt. states that she is feeling better. She is sitting in bed eating her breakfast. OBJECTIVE: Vital Signs Period Temp Pulse Resp BP Sys/Mejia Pulse Ox Last 24 Hr 97.2 F-98.9 F 86-103 18-20 105-115/53-78 96 GENERAL: The patient is awake, alert, and fully oriented, in no acute distress. HEAD: Normal with no signs of trauma. EYES: PERRL, extraocular movements intact, sclera anicteric, conjunctiva clear. No ptosis. ENT: Ears normal, nares patent, oropharynx clear without exudates, moist mucous membranes. NECK: Trachea midline, full range of motion, supple. LUNGS: Bibasilar crackles. No wheezes, or rhonchi no accessory muscle use. HEART: Regular rate and rhythm, S1, S2 without murmur, rub or gallop. ABDOMEN: Soft, nontender, nondistended, normoactive bowel sounds, no guarding, no rebound, no hepatosplenomegaly, no masses. EXTREMITIES: 2+ pulses, warm, well-perfused, no edema. NEUROLOGICAL: Cranial nerves II through XII grossly intact. Normal speech, gait not observed. PSYCH: Normal mood, normal affect. SKIN: Warm, dry, normal turgor, no rashes or lesions noted Laboratory Results - last 24 hr 08/14/16 08/14/16 06:00 06:00 WBC 6.0 RBC 4.57 Hgb 12.1 Hct 35.4 MCV 77.5 L MCHC 34.1 RDW 17.7 H Plt Count 197 MPV 9.0 Neutrophils % 68.4 D Lymphocytes % 17.1 D Monocytes % 13.5 H Eosinophils % 0.8 D Basophils % 0.2 Sodium 140 Potassium 3.6 Chloride 104 Carbon Dioxide 23 Anion Gap 13 BUN 10 D Creatinine 0.7 Creat Clearance w eGFR > 60 Random Glucose 102 Calcium 8.3 L Magnesium 2.1 Total Bilirubin 0.4 AST 17 D ALT 20 Alkaline Phosphatase 68 Total Protein 6.2 L Albumin 3.2 L Active Medications Generic Name Dose Route Start Last Admin Trade Name Freq PRN Reason Stop Dose Admin Albuterol/Ipratropium 1 amp 08/12/16 12:00 08/14/16 12:00 Duoneb - NEB 1 amp QIDR ELEUTERIO Administration Enoxaparin Sodium 40 mg 02/28/17 10:00 08/14/16 10:39 Lovenox - SQ 40 mg DAILY ELEUTERIO Administration Ceftriaxone Sodium 50 mls @ 100 mls/hr 08/12/16 10:00 08/14/16 10:39 Rocephin 1gm Ivpb (Pre-Docked) IVPB 100 mls/hr DAILY ELEUTERIO Administration Vancomycin HCl 250 mls @ 166.667 mls/hr 08/12/16 14:45 08/14/16 10:39 Vancomycin (Pre-Docked) IVPB 166.667 mls/hr DAILY ELEUTERIO Administration Protocol Loratadine 10 mg 08/12/16 10:00 08/14/16 10:39 Claritin - PO 10 mg DAILY ELEUTERIO Administration Montelukast Sodium 10 mg 08/12/16 10:00 08/14/16 10:39 Singulair - PO 10 mg DAILY ELEUTERIO Administration Non-Formulary Medication 8.7 gm 08/12/16 10:00 Beclomethasone Dipropionate [Qvar] IH DAILY ELEUTERIO Non-Formulary Medication 50 mg 08/12/16 10:00 Mirabegron [Myrbetriq] PO DAILY [facility] Ondansetron HCl 4 mg 08/12/16 06:42 Zofran Injection IVPB Q6H PRN NAUSEA Solifenacin 10 mg 08/12/16 10:00 08/14/16 10:40 Vesicare - PO 10 mg DAILY ELEUTERIO Administration Topiramate 50 mg 08/12/16 10:00 08/14/16 10:39 Topamax - PO 50 mg BID ELEUTERIO Administration ASSESSMENT/PLAN: 25 year-old woman with a PMH of cerebral palsy, Down's syndrome, asthma,and migraines. Admitted for LLL pneumonia. Bacterial LLL pneumonia -- LLL infiltrate seen on CXR -- Afebrile, no leukocytosis. -- Flu negative, Blood cultures show no growth after 48 hours. Sputum culture shows normal respiratory navdeep. -- Ceftriaxone (day #3), vancomycin (day #3); azithromycin dc'd 08/12. ID following --Given this pneumonia developed while on antibiotics, concern for resistance, pt will require at least two more days of IV antibiotics -- Duonebs as scheduled. Sinusitis/Otitis media -- Completed abx course one week ago. Reports that she finished Levaquin. Asthma -- Duonebs -- Continue home Singulair, Loratadine Migraines -- Stable Diarrhea -- Resolved Cerebral palsy Down's syndrome -- At baseline F/E/N Fluids: PO intake adequate Electrolytes: Replete as indicated Nutrition: Regular diet DVT prophylaxis: lovenox, oob, ambulation Dispo: continues to require inpatient care. Full Code. Visit type - Emergency Visit Emergency Visit: Yes ED Registration Date: 08/12/16 Care time: The patient presented to the Emergency Department on the above date and was hospitalized for further evaluation of their emergent condition. - New Patient This patient is new to me today: Yes Date on this admission: 08/14/16 - Critical Care Critical Care patient: No
[2016-08-14] MEDS: SENNOSIDES 8.6MG TABLET (FP) PO SCH (22:05)
[2016-08-15] MEDS: ALBUTEROL SO4 2.5/IPRATROPIUM 0.5 INH SOL 3 ML VIAL.NEB. NEB SCH ×5 (00:17→23:08)
[2016-08-15] MEDS ORDERED: PT OWN MED DRAWER 7, Y5N ONE ×2 (07:05→08:41)
[2016-08-15 08:39] LABS: MCH 26.3 pg (25.7-33.7); MEAN CELL VOLUME 77.4 fl (80-96); MEAN PLT VOLUME 9.3 fl (7.5-11.1); PLATELET COUNT 237 K/MM3 (134-434); RDW 18.3 % (11.6-15.6); WHITE BLOOD COUNT 5.5 K/mm3 (4.0-10.0)
[2016-08-15] MEDS: VANCOMYCIN 1 GRAM (PRE-DOCKED) 250 ML IVPB SCH ×2 (08:45→11:29)
[2016-08-15] MEDS: MONTELUKAST NA 10 MG TABLET PO SCH ×2 (08:46→11:29)
[2016-08-15] MEDS: CEFTRIAXONE 50 ML IVPB SCH ×2 (08:46→11:29)
[2016-08-15] MEDS: TOPIRAMATE 25 MG TABLET (FP) PO SCH ×3 (08:46→21:24)
[2016-08-15] MEDS: ENOXAPARIN NA (PORCINE) 40 MG/0.4 ML DISP.SYRIN SQ SCH ×2 (08:47→11:29)
[2016-08-15] MEDS: SENNOSIDES 8.6MG TABLET (FP) PO SCH ×3 (08:47→21:24)
[2016-08-15] MEDS: LORATADINE 10 MG TABLET PO SCH ×2 (08:47→11:28)
[2016-08-15] MEDS: SOLIFENACIN SUCCINATE 5 MG TAB (FP) PO SCH ×2 (08:48→11:29)
[2016-08-15 09:04] LABS: ALBUMIN 3.3 g/dl (3.4-5.0); ALK PHOS 70 U/L (45-117); ANION GAP 11 (8-16); BILIRUBIN,TOTAL 0.4 mg/dL (0.2-1.0); CALCIUM 8.6 mg/dL (8.5-10.1); CO2 20 mmol/L (21-32); CREATININE 0.8 mg/dL (0.55-1.02); GLUCOSE,RANDOM 109 mg/dL (74-106); MAGNESIUM 2.3 mg/dL (1.8-2.4); SGOT/AST 14 U/L (15-37); SGPT/ALT 23 U/L (12-78); TOT PROT 6.5 g/dl (6.4-8.2)
--- NOTE | 2016-08-15 10:58 | PN ---
Physical Exam: SUBJECTIVE: Patient seen and examined at bedside. Pt. states that she is feeling a little better today, but still coughing. She is sitting in the hospital bed watching a movie, breathing easily. OBJECTIVE: Vital Signs Period Temp Pulse Resp BP Sys/Mejia Pulse Ox Last 24 Hr 97.6 F-99.2 F 92-107 18-20 105-118/53-70 GENERAL: The patient is awake, alert, and fully oriented, in no acute distress. HEAD: Normal with no signs of trauma. EYES: PERRL, extraocular movements intact, sclera anicteric, conjunctiva clear. No ptosis. ENT: Ears normal, nares patent, oropharynx clear without exudates, moist mucous membranes. NECK: Trachea midline, full range of motion, supple. LUNGS: Bibasillar crackles. Chest expansion equal, no wheezes, no accessory muscle use. HEART: Regular rate and rhythm, S1, S2 without murmur, rub or gallop. ABDOMEN: Soft, nontender, nondistended, normoactive bowel sounds, no guarding, no rebound, no hepatosplenomegaly, no masses. EXTREMITIES: 2+ pulses, warm, well-perfused, no edema. NEUROLOGICAL: Cranial nerves II through XII grossly intact. Normal speech, gait not observed. PSYCH: Normal mood, normal affect. SKIN: Warm, dry, normal turgor, no rashes or lesions noted Laboratory Results - last 24 hr 08/15/16 08/15/16 08:28 08:28 WBC 5.5 RBC 4.73 Hgb 12.5 Hct 36.6 MCV 77.4 L MCHC 34.0 RDW 18.3 H Plt Count 237 D MPV 9.3 Neutrophils % Y Lymphocytes % Y Sodium 141 Potassium 4.2 Chloride 110 H Carbon Dioxide 20 L Anion Gap 11 BUN 11 Creatinine 0.8 Creat Clearance w eGFR > 60 Random Glucose 109 H Calcium 8.6 Magnesium 2.3 Total Bilirubin 0.4 AST 14 L ALT 23 Alkaline Phosphatase 70 Total Protein 6.5 Albumin 3.3 L Active Medications Generic Name Dose Route Start Last Admin Trade Name Freq PRN Reason Stop Dose Admin Albuterol/Ipratropium 1 amp 08/12/16 12:00 08/15/16 06:49 Duoneb - NEB 1 amp QIDR ELEUTERIO Administration Enoxaparin Sodium 40 mg 08/13/16 10:00 08/15/16 08:47 Lovenox - SQ 40 mg DAILY ELEUTERIO Administration Ceftriaxone Sodium 50 mls @ 100 mls/hr 08/12/16 10:00 08/15/16 08:46 Rocephin 1gm Ivpb (Pre-Docked) IVPB 100 mls/hr DAILY ELEUTERIO Administration Vancomycin HCl 250 mls @ 166.667 mls/hr 08/12/16 14:45 08/15/16 08:45 Vancomycin (Pre-Docked) IVPB 166.667 mls/hr DAILY ELEUTERIO Administration Protocol Loratadine 10 mg 08/12/16 10:00 08/15/16 08:47 Claritin - PO 10 mg DAILY ELEUTERIO Administration Montelukast Sodium 10 mg 08/12/16 10:00 08/15/16 08:46 Singulair - PO 10 mg DAILY ELEUTERIO Administration Non-Formulary Medication 8.7 gm 08/12/16 10:00 Beclomethasone Dipropionate [Qvar] IH DAILY [facility] Non-Formulary Medication 50 mg 08/12/16 10:00 Mirabegron [Myrbetriq] PO DAILY [facility] Ondansetron HCl 4 mg 08/12/16 06:42 Zofran Injection IVPB Q6H PRN NAUSEA Senna 1 tab 08/14/16 22:00 08/15/16 08:47 Senna - PO 1 tab BID ELEUTERIO Administration Solifenacin 10 mg 08/12/16 10:00 08/15/16 08:48 Vesicare - PO 10 mg DAILY ELEUTERIO Administration Topiramate 50 mg 08/12/16 10:00 08/15/16 08:46 Topamax - PO 50 mg BID ELEUTERIO Administration ASSESSMENT/PLAN: 25 year-old woman with a PMH of cerebral palsy, Down's syndrome, asthma,and migraines. Admitted for LLL pneumonia. Bacterial LLL pneumonia -- LLL infiltrate seen on CXR -- Afebrile, no leukocytosis. -- Flu negative, Blood cultures show no growth after 72 hours. Sputum culture shows normal respiratory navdeep. -- Ceftriaxone (day #4), vancomycin (day #4); azithromycin dc'd 08/12. ID following --Given this pneumonia developed while on antibiotics, concern for resistance, pt will require at least one more day of IV antibiotics -- Duonebs as scheduled. Sinusitis/Otitis media -- Completed abx course one week ago. Reports that she finished Levaquin. Asthma -- Duonebs -- Continue home Singulair, Loratadine Migraines -- Stable Diarrhea -- Resolved Cerebral palsy Down's syndrome -- At baseline F/E/N Fluids: PO intake adequate Electrolytes: Replete as indicated Nutrition: Regular diet DVT prophylaxis: lovenox, oob, ambulation Dispo: continues to require inpatient care. Full Code. Visit type - Emergency Visit Emergency Visit: Yes ED Registration Date: 08/12/16 Care time: The patient presented to the Emergency Department on the above date and was hospitalized for further evaluation of their emergent condition. - New Patient This patient is new to me today: No - Critical Care Critical Care patient: No - Discharge Referral Referred to [facility] No
[2016-08-15 12:04] LABS: METAMYELOCYTE 3 % (0-2)
--- NOTE | 2016-08-15 14:11 | PN ---
Progress Note, Physician History of Present Illness: patient stable looking much better - Current Medication List Current Medications: Active Medications Albuterol/Ipratropium (Duoneb -) 1 amp NEB QIDR [facility] Last Admin: 08/15/16 11:29 Dose: 1 amp Enoxaparin Sodium (Lovenox -) 40 mg SQ DAILY [facility] Last Admin: 08/15/16 11:29 Dose: Not Given Ceftriaxone Sodium (Rocephin 1gm Ivpb (Pre-Docked)) 50 mls @ 100 mls/hr IVPB DAILY [facility] Last Admin: 08/15/16 11:29 Dose: Not Given Vancomycin HCl (Vancomycin (Pre-Docked)) 250 mls @ 166.667 mls/hr IVPB DAILY [facility] PRN Reason: Protocol Last Admin: 08/15/16 11:29 Dose: Not Given Loratadine (Claritin -) 10 mg PO DAILY [facility] Last Admin: 08/15/16 11:28 Dose: Not Given Montelukast Sodium (Singulair -) 10 mg PO DAILY [facility] Last Admin: 08/15/16 11:29 Dose: Not Given Non-Formulary Medication (Beclomethasone Dipropionate [Qvar]) 8.7 gm IH DAILY [facility] Non-Formulary Medication (Mirabegron [Myrbetriq]) 50 mg PO DAILY [facility] Ondansetron HCl (Zofran Injection) 4 mg IVPB Q6H PRN PRN Reason: NAUSEA Senna (Senna -) 1 tab PO BID [facility] Last Admin: 08/15/16 11:29 Dose: Not Given Solifenacin (Vesicare -) 10 mg PO DAILY [facility] Last Admin: 08/15/16 11:29 Dose: Not Given Topiramate (Topamax -) 50 mg PO BID [facility] Last Admin: 08/15/16 11:29 Dose: Not Given - Objective Vital Signs: Vital Signs Temperature 99.2 F 08/15/16 08:30 Pulse Rate 107 H 08/15/16 08:30 Respiratory Rate 20 08/15/16 08:30 Blood Pressure 105/58 08/15/16 08:30 O2 Sat by Pulse Oximetry (%) 95 08/15/16 09:00 Constitutional: Yes: No Distress, Calm Neck: Yes: Supple, Trachea Midline Cardiovascular: Yes: Regular Rate and Rhythm Respiratory: Yes: Regular, Other Gastrointestinal: Yes: Normal Bowel Sounds, Soft Musculoskeletal: Yes: WNL Extremities: Yes: WNL Neurological: Yes: Alert, Oriented Psychiatric: Yes: Alert Labs: CBC, BMP 08/15/16 08:28 08/15/16 08:28 Assessment/Plan pneumonia GERD overactive bladder migraines plan continue current abx incentive urszula patient looking much better deescalating abx from friday
[2016-08-15] MEDS: FLOVENT 44 MCG IH SCH (21:25)
[2016-08-16] MEDS ORDERED: PT OWN MED DRAWER 7, Y5N ONE ×3 (06:46→10:50)
[2016-08-16] MEDS: ALBUTEROL SO4 2.5/IPRATROPIUM 0.5 INH SOL 3 ML VIAL.NEB. NEB SCH ×4 (06:50→23:19)
[2016-08-16 07:54] LABS: BASOPHIL 0.7 % (0-2.0); EOSINOPHIL 1.6 % (0-4.5); MCH 26.6 pg (25.7-33.7); MCHC 33.7 g/dl (32.0-36.0); MEAN CELL VOLUME 78.9 fl (80-96); MEAN PLT VOLUME 10.3 fl (7.5-11.1); NEUTROPHILS 74.5 % (42.8-82.8); RDW 18.4 % (11.6-15.6)
[2016-08-16 08:19] LABS: WHITE BLOOD COUNT 5.9 K/mm3 (4.0-10.0)
[2016-08-16 08:23] LABS: ALBUMIN 3.2 g/dl (3.4-5.0); CALCIUM 8.1 mg/dL (8.5-10.1); MAGNESIUM 2.4 mg/dL (1.8-2.4)
[2016-08-16 08:27] LABS: ALK PHOS 65 U/L (45-117); ANION GAP 12 (8-16); BILIRUBIN,TOTAL 0.4 mg/dL (0.2-1.0); CO2 20 mmol/L (21-32); CREATININE 0.7 mg/dL (0.55-1.02); GLUCOSE,RANDOM 88 mg/dL (74-106); SGPT/ALT 23 U/L (12-78); TOT PROT 6.2 g/dl (6.4-8.2)
[2016-08-16 08:55] LABS: SGOT/AST 24 U/L (15-37)
[2016-08-16 09:15] LABS: ALBUMIN 3.2 g/dl (3.4-5.0); ALK PHOS 69 U/L (45-117); ANION GAP 9 (8-16); BILIRUBIN,TOTAL 0.4 mg/dL (0.2-1.0); CO2 22 mmol/L (21-32); CREATININE 0.7 mg/dL (0.55-1.02); GLUCOSE,RANDOM 101 mg/dL (74-106); MAGNESIUM 2.2 mg/dL (1.8-2.4); SGOT/AST 20 U/L (15-37); SGPT/ALT 24 U/L (12-78); TOT PROT 6.2 g/dl (6.4-8.2)
[2016-08-16 09:20] LABS: MCH 26.2 pg (25.7-33.7); MCHC 33.5 g/dl (32.0-36.0); MEAN CELL VOLUME 78.2 fl (80-96); MEAN PLT VOLUME 9.8 fl (7.5-11.1); PLATELET COUNT 218 K/MM3 (134-434); RDW 18.2 % (11.6-15.6); WHITE BLOOD COUNT 5.7 K/mm3 (4.0-10.0)
[2016-08-16] MEDS: CEFTRIAXONE 50 ML IVPB SCH (10:21)
[2016-08-16] MEDS: SOLIFENACIN SUCCINATE 5 MG TAB (FP) PO SCH (10:21)
[2016-08-16] MEDS: TOPIRAMATE 25 MG TABLET (FP) PO SCH ×2 (10:22→21:48)
[2016-08-16] MEDS: MYRBETRIQ 25 MG PO SCH (10:22)
[2016-08-16] MEDS: LORATADINE 10 MG TABLET PO SCH (10:22)
[2016-08-16] MEDS: ENOXAPARIN NA (PORCINE) 40 MG/0.4 ML DISP.SYRIN SQ SCH (10:22)
[2016-08-16] MEDS: SENNOSIDES 8.6MG TABLET (FP) PO SCH ×2 (10:22→21:48)
[2016-08-16] MEDS: MONTELUKAST NA 10 MG TABLET PO SCH (10:22)
[2016-08-16] MEDS: FLOVENT 44 MCG IH SCH ×2 (10:23→21:50)
[2016-08-16 11:32] LABS: METAMYELOCYTE 2 % (0-2); PLATELET COMMENT2 NO CLUMPING NOTED; PLATELET ESTIMATE ADEQUATE (NORMAL); POLYCHROMASIA 1+
[2016-08-16 11:33] LABS: ANISOCYTOSIS 1+; DOHLE BODIES 1+; MICROCYTOSIS 1+
[2016-08-16] MEDS: VANCOMYCIN 1 GRAM (PRE-DOCKED) 250 ML IVPB SCH (12:10)
--- NOTE | 2016-08-16 14:53 | PN ---
Progress Note, Physician History of Present Illness: patient says she is more sob coughing a bit more - Current Medication List Current Medications: Active Medications Albuterol/Ipratropium (Duoneb -) 1 amp NEB QIDR [facility] Last Admin: 08/16/16 11:15 Dose: 1 amp Enoxaparin Sodium (Lovenox -) 40 mg SQ DAILY [facility] Last Admin: 08/16/16 10:22 Dose: 40 mg Ceftriaxone Sodium (Rocephin 1gm Ivpb (Pre-Docked)) 50 mls @ 100 mls/hr IVPB DAILY [facility] Last Admin: 08/16/16 10:21 Dose: 100 mls/hr Vancomycin HCl (Vancomycin (Pre-Docked)) 250 mls @ 166.667 mls/hr IVPB DAILY [facility] PRN Reason: Protocol Last Admin: 08/16/16 12:10 Dose: 166.667 mls/hr Loratadine (Claritin -) 10 mg PO DAILY [facility] Last Admin: 08/16/16 10:22 Dose: 10 mg Montelukast Sodium (Singulair -) 10 mg PO DAILY [facility] Last Admin: 08/16/16 10:22 Dose: 10 mg Flovent Hfa 44 Mcg Inhaler - Patient Own Med 0 gm IH BID [facility] Last Admin: 08/16/16 10:23 Dose: 0.44 gm Myrbetriq Er 25 Mg Tablet - Patient Own Med 25 mg PO DAILY [facility] Last Admin: 08/16/16 10:22 Dose: 25 mg Ondansetron HCl (Zofran Injection) 4 mg IVPB Q6H PRN PRN Reason: NAUSEA Senna (Senna -) 1 tab PO BID [facility] Last Admin: 08/16/16 10:22 Dose: 1 tab Solifenacin (Vesicare -) 10 mg PO DAILY [facility] Last Admin: 08/16/16 10:21 Dose: 10 mg Topiramate (Topamax -) 50 mg PO BID [facility] Last Admin: 08/16/16 10:22 Dose: 50 mg - Objective Vital Signs: Vital Signs Temperature 98.4 F 08/16/16 08:00 Pulse Rate 106 H 08/16/16 08:00 Respiratory Rate 20 08/16/16 08:00 Blood Pressure 102/58 08/16/16 08:00 O2 Sat by Pulse Oximetry (%) 96 08/16/16 09:00 Constitutional: Yes: Calm, Mild Distress HENT: Yes: Atraumatic Cardiovascular: Yes: Regular Rate and Rhythm Respiratory: Yes: Regular, CTA Bilaterally Gastrointestinal: Yes: Normal Bowel Sounds, Soft Musculoskeletal: Yes: WNL Extremities: Yes: WNL Neurological: Yes: Alert, Oriented Psychiatric: Yes: Alert Labs: CBC, BMP 08/16/16 09:00 08/16/16 08:15 Assessment/Plan pneumonia GERD overactive bladder migraines plan continue abx check the o2 sat if continues to c/o of sob will get xray chest
--- NOTE | 2016-08-16 18:19 | PN ---
Physical Exam: SUBJECTIVE: Patient seen and examined. Complaining of feeling more SOB. OBJECTIVE: Vital Signs Period Temp Pulse Resp BP Sys/Mejia Pulse Ox Last 24 Hr 98.0 F-98.4 F 103-106 18-20 102/58 95-96 GENERAL: The patient is awake, alert, and fully oriented, in no acute distress. HEAD: Normal with no signs of trauma. EYES: PERRL, extraocular movements intact, sclera anicteric, conjunctiva clear. No ptosis. LUNGS: Bibasillar crackles, slightly worse than yesterday. HEART: Regular rate and rhythm, S1, S2 without murmur, rub or gallop. ABDOMEN: Soft, nontender, nondistended, normoactive bowel sounds, no guarding, no rebound, no hepatosplenomegaly, no masses. EXTREMITIES: 2+ pulses, warm, well-perfused, no edema. NEUROLOGICAL: Cranial nerves II through XII grossly intact. Normal speech, gait not observed. PSYCH: Normal mood, normal affect. SKIN: Warm, dry, normal turgor, no rashes or lesions noted Laboratory Results - last 24 hr 08/16/16 08/16/16 08/16/16 06:30 06:30 08:15 WBC 5.9 RBC 4.82 Hgb 12.8 Hct 38.1 MCV 78.9 L MCHC 33.7 RDW 18.4 H Plt Count TNP MPV 10.3 D Neutrophils % 74.5 D Lymphocytes % 14.0 D Monocytes % 9.2 Eosinophils % 1.6 Basophils % 0.7 D Band Neutrophils Metamyelocytes Myelocytes Dohle Bodies Platelet Estimate Platelet Comment Polychromasia Anisocytosis Microcytosis Sodium 138 139 Potassium 4.2 4.0 Chloride 106 108 H Carbon Dioxide 20 L 22 Anion Gap 12 9 BUN 10 9 Creatinine 0.7 0.7 Creat Clearance w eGFR > 60 > 60 Random Glucose 88 101 Calcium 8.1 L 8.0 L Magnesium 2.4 2.2 Total Bilirubin 0.4 0.4 AST 24 D 20 ALT 23 24 Alkaline Phosphatase 65 69 Total Protein 6.2 L 6.2 L Albumin 3.2 L 3.2 L 08/16/16 09:00 WBC 5.7 RBC 4.61 Hgb 12.1 Hct 36.0 MCV 78.2 L MCHC 33.5 RDW 18.2 H Plt Count 218 MPV 9.8 Neutrophils % 68.0 Lymphocytes % 13.0 Monocytes % 11.0 H Eosinophils % 1.0 Basophils % Band Neutrophils 2.0 Metamyelocytes 2 D Myelocytes 3 H Dohle Bodies 1+ Platelet Estimate Adequate Platelet Comment No clumping noted Polychromasia 1+ Anisocytosis 1+ Microcytosis 1+ Sodium Potassium Chloride Carbon Dioxide Anion Gap BUN Creatinine Creat Clearance w eGFR Random Glucose Calcium Magnesium Total Bilirubin AST ALT Alkaline Phosphatase Total Protein Albumin Active Medications Generic Name Dose Route Start Last Admin Trade Name Freq PRN Reason Stop Dose Admin Albuterol/Ipratropium 1 amp 08/12/16 12:00 08/16/16 17:10 Duoneb - NEB 1 amp QIDR ELEUTERIO Administration Enoxaparin Sodium 40 mg 08/13/16 10:00 08/16/16 10:22 Lovenox - SQ 40 mg DAILY ELEUTERIO Administration Ceftriaxone Sodium 50 mls @ 100 mls/hr 08/12/16 10:00 08/16/16 10:21 Rocephin 1gm Ivpb (Pre-Docked) IVPB 100 mls/hr DAILY ELEUTERIO Administration Vancomycin HCl 250 mls @ 166.667 mls/hr 08/12/16 14:45 08/16/16 12:10 Vancomycin (Pre-Docked) IVPB 166.667 mls/hr DAILY ELEUTERIO Administration Protocol Loratadine 10 mg 08/12/16 10:00 08/16/16 10:22 Claritin - PO 10 mg DAILY ELEUTERIO Administration Montelukast Sodium 10 mg 08/12/16 10:00 08/16/16 10:22 Singulair - PO 10 mg DAILY ELEUTERIO Administration Flovent Hfa 44 Mcg 0 gm 08/15/16 22:00 08/16/16 10:23 Inhaler - Patient IH 0.44 gm Own Med BID ELEUTERIO Administration Myrbetriq Er 25 Mg 25 mg 08/16/16 10:00 08/16/16 10:22 Tablet - Patient Own PO 25 mg Med DAILY ELEUTERIO Administration Ondansetron HCl 4 mg 08/12/16 06:42 Zofran Injection IVPB Q6H PRN NAUSEA Senna 1 tab 08/14/16 22:00 08/16/16 10:22 Senna - PO 1 tab BID ELEUTERIO Administration Solifenacin 10 mg 08/12/16 10:00 08/16/16 10:21 Vesicare - PO 10 mg DAILY ELEUTERIO Administration Topiramate 50 mg 08/12/16 10:00 08/16/16 10:22 Topamax - PO 50 mg BID ELEUTERIO Administration ASSESSMENT/PLAN 25 year-old woman with a PMH of cerebral palsy, Down's syndrome, asthma,and migraines. Admitted for LLL pneumonia. Bacterial LLL pneumonia -- Afebrile, no leukocytosis, but clinically slightly worse on exam and patient complaining of increased SOB --continue ceftriaxone (day #5), vancomycin (day #5); azithromycin dc'd 08/12 -- Duonebs as scheduled. Sinusitis/Otitis media -- Completed abx course one week ago. Reports that she finished Levaquin. Asthma -- Duonebs -- Continue home Singulair, Loratadine Migraines -- Stable Diarrhea -- Resolved Cerebral palsy Down's syndrome -- At baseline F/E/N Fluids: PO intake adequate Electrolytes: Replete as indicated Nutrition: Regular diet DVT prophylaxis: lovenox, oob, ambulation Visit type - Emergency Visit Emergency Visit: Yes ED Registration Date: 08/12/16 Care time: The patient presented to the Emergency Department on the above date and was hospitalized for further evaluation of their emergent condition. - New Patient This patient is new to me today: No - Critical Care Critical Care patient: No
[2016-08-17] MEDS: ALBUTEROL SO4 2.5/IPRATROPIUM 0.5 INH SOL 3 ML VIAL.NEB. NEB SCH ×2 (06:33→12:44)
[2016-08-17] MEDS: SENNOSIDES 8.6MG TABLET (FP) PO SCH ×2 (09:34→22:13)
[2016-08-17] MEDS: FLOVENT 44 MCG IH SCH ×2 (09:34→22:15)
[2016-08-17] MEDS: LORATADINE 10 MG TABLET PO SCH (09:34)
[2016-08-17] MEDS: ENOXAPARIN NA (PORCINE) 40 MG/0.4 ML DISP.SYRIN SQ SCH (09:35)
[2016-08-17] MEDS: TOPIRAMATE 25 MG TABLET (FP) PO SCH ×2 (09:35→22:13)
[2016-08-17] MEDS: SOLIFENACIN SUCCINATE 5 MG TAB (FP) PO SCH (09:35)
[2016-08-17] MEDS: MYRBETRIQ 25 MG PO SCH (09:35)
[2016-08-17] MEDS: MONTELUKAST NA 10 MG TABLET PO SCH (09:35)
[2016-08-17] MEDS: CEFTRIAXONE 50 ML IVPB SCH (09:43)
[2016-08-17] MEDS: VANCOMYCIN 1 GRAM (PRE-DOCKED) 250 ML IVPB SCH (09:43)
[2016-08-17] MEDS ORDERED: ALBUTEROL SO4 2.5/IPRATROPIUM 0.5 INH SOL 3 ML VIAL.NEB. NEB ONE (12:30)
--- NOTE | 2016-08-17 13:46 | PN ---
Physical Exam: SUBJECTIVE: Patient seen and examined. OBJECTIVE: Vital Signs Period Temp Pulse Resp BP Sys/Mejia Pulse Ox Last 24 Hr 97.9 F-98.8 F 98-103 18-18 95-102/55-69 94 GENERAL: The patient is awake, alert, and fully oriented, in no acute distress. Appears quite comfortable. HEAD: Normal with no signs of trauma. EYES: PERRL, extraocular movements intact, sclera anicteric, conjunctiva clear. No ptosis. LUNGS: Minimal bibasilar crackles HEART: Regular rate and rhythm, S1, S2 without murmur, rub or gallop. ABDOMEN: Soft, nontender, nondistended, normoactive bowel sounds, no guarding, no rebound, no hepatosplenomegaly, no masses. EXTREMITIES: 2+ pulses, warm, well-perfused, no edema. NEUROLOGICAL: Cranial nerves II through XII grossly intact. Normal speech, gait not observed. PSYCH: Normal mood, normal affect. SKIN: Warm, dry, normal turgor, no rashes or lesions noted Active Medications Generic Name Dose Route Start Last Admin Trade Name Freq PRN Reason Stop Dose Admin Enoxaparin Sodium 40 mg 08/13/16 10:00 08/17/16 09:35 Lovenox - SQ 40 mg DAILY ELEUTERIO Administration Ceftriaxone Sodium 50 mls @ 100 mls/hr 08/12/16 10:00 08/17/16 09:43 Rocephin 1gm Ivpb (Pre-Docked) IVPB 100 mls/hr DAILY ELEUTERIO Administration Vancomycin HCl 250 mls @ 166.667 mls/hr 08/12/16 14:45 08/17/16 09:43 Vancomycin (Pre-Docked) IVPB 166.667 mls/hr DAILY ELEUTERIO Administration Protocol Loratadine 10 mg 08/12/16 10:00 08/17/16 09:34 Claritin - PO 10 mg DAILY ELEUTERIO Administration Montelukast Sodium 10 mg 08/12/16 10:00 08/17/16 09:35 Singulair - PO 10 mg DAILY ELEUTERIO Administration Flovent Hfa 44 Mcg 0 gm 08/15/16 22:00 08/17/16 09:34 Inhaler - Patient IH 2 gm Own Med BID ELEUTERIO Administration Myrbetriq Er 25 Mg 25 mg 08/16/16 10:00 08/17/16 09:35 Tablet - Patient Own PO 25 mg Med DAILY ELEUTERIO Administration Ondansetron HCl 4 mg 08/12/16 06:42 Zofran Injection IVPB Q6H PRN NAUSEA Senna 1 tab 08/14/16 22:00 08/17/16 09:34 Senna - PO 1 tab BID ELEUTERIO Administration Solifenacin 10 mg 08/12/16 10:00 08/17/16 09:35 Vesicare - PO 10 mg DAILY ELEUTERIO Administration Topiramate 50 mg 08/12/16 10:00 08/17/16 09:35 Topamax - PO 50 mg BID ELEUTERIO Administration ASSESSMENT/PLAN 25 year-old woman with a PMH of cerebral palsy, Down's syndrome, asthma, and migraines. Admitted for LLL pneumonia. Bacterial LLL pneumonia -- Afebrile, no leukocytosis --continue ceftriaxone (day #6), vancomycin (day #6); azithromycin dc'd 08/12 --duonebs as scheduled. Sinusitis/Otitis media -- Completed abx course one week ago. Reports that she finished Levaquin. Asthma -- Duonebs -- Continue home Singulair, Loratadine Migraines -- Stable Diarrhea -- Resolved Cerebral palsy Down's syndrome -- At baseline F/E/N Fluids: PO intake adequate Electrolytes: Replete as indicated Nutrition: Regular diet DVT prophylaxis: lovenox, oob, ambulation Dispo: continues to require inpatient care. Full Code. Visit type - Emergency Visit Emergency Visit: Yes ED Registration Date: 08/12/16 Care time: The patient presented to the Emergency Department on the above date and was hospitalized for further evaluation of their emergent condition. - New Patient This patient is new to me today: No - Critical Care Critical Care patient: No
--- NOTE | 2016-08-17 14:48 | PN ---
Progress Note, Physician History of Present Illness: stable no new events - Current Medication List Current Medications: Active Medications Enoxaparin Sodium (Lovenox -) 40 mg SQ DAILY [facility] Last Admin: 08/17/16 09:35 Dose: 40 mg Ceftriaxone Sodium (Rocephin 1gm Ivpb (Pre-Docked)) 50 mls @ 100 mls/hr IVPB DAILY [facility] Last Admin: 08/17/16 09:43 Dose: 100 mls/hr Loratadine (Claritin -) 10 mg PO DAILY [facility] Last Admin: 08/17/16 09:34 Dose: 10 mg Montelukast Sodium (Singulair -) 10 mg PO DAILY [facility] Last Admin: 08/17/16 09:35 Dose: 10 mg Flovent Hfa 44 Mcg Inhaler - Patient Own Med 0 gm IH BID [facility] Last Admin: 08/17/16 09:34 Dose: 2 gm Myrbetriq Er 25 Mg Tablet - Patient Own Med 25 mg PO DAILY [facility] Last Admin: 08/17/16 09:35 Dose: 25 mg Ondansetron HCl (Zofran Injection) 4 mg IVPB Q6H PRN PRN Reason: NAUSEA Senna (Senna -) 1 tab PO BID [facility] Last Admin: 08/17/16 09:34 Dose: 1 tab Solifenacin (Vesicare -) 10 mg PO DAILY [facility] Last Admin: 08/17/16 09:35 Dose: 10 mg Topiramate (Topamax -) 50 mg PO BID [facility] Last Admin: 08/17/16 09:35 Dose: 50 mg - Objective Vital Signs: Vital Signs Temperature 97.9 F 08/17/16 10:00 Pulse Rate 98 H 08/17/16 10:00 Respiratory Rate 18 08/17/16 10:00 Blood Pressure 100/69 08/17/16 10:00 O2 Sat by Pulse Oximetry (%) 94 L 08/17/16 09:00 Constitutional: Yes: No Distress, Calm Cardiovascular: Yes: Regular Rate and Rhythm Respiratory: Yes: Regular, CTA Bilaterally Gastrointestinal: Yes: Normal Bowel Sounds, Soft Musculoskeletal: Yes: WNL Extremities: Yes: WNL Neurological: Yes: Alert, Oriented Psychiatric: Yes: Alert Labs: CBC, BMP 08/16/16 09:00 08/16/16 08:15 Assessment/Plan pneumonia GERD overactive bladder migraines plan continue abx stopped [facility]
[2016-08-17] MEDS ORDERED: PT OWN MED DRAWER 7, Y5N ONE (21:46)
--- NOTE | 2016-08-18 10:04 | PN ---
Physical Exam: SUBJECTIVE: Patient seen and examined oob to chair. OBJECTIVE: Vital Signs Period Temp Pulse Resp BP Sys/Mejia Pulse Ox Last 24 Hr 97.7 F-98.6 F 95-120 18-20 108-131/62-74 100-100 GENERAL: The patient is awake, alert, and fully oriented, in no acute distress. HEAD: Normal with no signs of trauma. EYES: PERRL, extraocular movements intact, sclera anicteric, conjunctiva clear. No ptosis. LUNGS: CTA HEART: Regular rate and rhythm, S1, S2 without murmur, rub or gallop. ABDOMEN: Soft, nontender, nondistended, normoactive bowel sounds, no guarding, no rebound, no hepatosplenomegaly, no masses. EXTREMITIES: 2+ pulses, warm, well-perfused, no edema. NEUROLOGICAL: Cranial nerves II through XII grossly intact. Normal speech, gait not observed. PSYCH: Normal mood, normal affect. SKIN: Warm, dry, normal turgor, no rashes or lesions noted Active Medications Generic Name Dose Route Start Last Admin Trade Name Freq PRN Reason Stop Dose Admin Enoxaparin Sodium 40 mg 08/13/16 10:00 08/17/16 09:35 Lovenox - SQ 40 mg DAILY ELEUTERIO Administration Ceftriaxone Sodium 50 mls @ 100 mls/hr 08/12/16 10:08/17/16 09:43 Rocephin 1gm Ivpb (Pre-Docked) IVPB 100 mls/hr DAILY ELEUTERIO Administration Loratadine 10 mg 08/12/16 10:00 08/17/16 09:34 Claritin - PO 10 mg DAILY ELEUTERIO Administration Montelukast Sodium 10 mg 08/12/16 10:00 08/17/16 09:35 Singulair - PO 10 mg DAILY ELEUTERIO Administration Flovent Hfa 44 Mcg 0 gm 08/15/16 22:00 08/17/16 22:15 Inhaler - Patient IH 2 gm Own Med BID ELEUTERIO Administration Myrbetriq Er 25 Mg 25 mg 08/16/16 10:00 08/17/16 09:35 Tablet - Patient Own PO 25 mg Med DAILY ELEUTERIO Administration Ondansetron HCl 4 mg 08/12/16 06:42 Zofran Injection IVPB Q6H PRN NAUSEA Senna 1 tab 08/14/16 22:00 08/17/16 22:13 Senna - PO 1 tab BID ELEUTERIO Administration Solifenacin 10 mg 08/12/16 10:00 08/17/16 09:35 Vesicare - PO 10 mg DAILY ELEUTERIO Administration Topiramate 50 mg 08/12/16 10:00 08/17/16 22:13 Topamax - PO 50 mg BID ELEUTERIO Administration ASSESSMENT/PLAN 25 year-old woman with a PMH of cerebral palsy, Down's syndrome, asthma, and migraines. Admitted for LLL pneumonia. Bacterial LLL pneumonia -- Afebrile, no leukocytosis --completed ceftriaxone x 7 days, vancomycin x 6 days --duonebs as scheduled Sinusitis/Otitis media, resolved -- Completed abx course one week ago. Reports that she finished Levaquin. Asthma -- Duonebs -- Continue home Singulair, Loratadine Migraines -- Stable Diarrhea -- Resolved Cerebral palsy Down's syndrome -- At baseline F/E/N Fluids: PO intake adequate Electrolytes: Replete as indicated Nutrition: Regular diet DVT prophylaxis: lovenox, oob, ambulation Dispo: discharge to home in morning. Full Code. Visit type - Emergency Visit Emergency Visit: Yes ED Registration Date: 08/12/16 Care time: The patient presented to the Emergency Department on the above date and was hospitalized for further evaluation of their emergent condition. - New Patient This patient is new to me today: No - Critical Care Critical Care patient: No
[2016-08-18] MEDS: MYRBETRIQ 25 MG PO SCH (10:20)
[2016-08-18] MEDS: FLOVENT 44 MCG IH SCH ×2 (10:20→21:46)
[2016-08-18] MEDS: LORATADINE 10 MG TABLET PO SCH (10:21)
[2016-08-18] MEDS: TOPIRAMATE 25 MG TABLET (FP) PO SCH ×2 (10:21→21:45)
[2016-08-18] MEDS: SOLIFENACIN SUCCINATE 5 MG TAB (FP) PO SCH (10:21)
[2016-08-18] MEDS: SENNOSIDES 8.6MG TABLET (FP) PO SCH ×2 (10:21→21:45)
[2016-08-18] MEDS: CEFTRIAXONE 50 ML IVPB SCH (10:22)
[2016-08-18] MEDS: MONTELUKAST NA 10 MG TABLET PO SCH (10:22)
[2016-08-18] MEDS: ENOXAPARIN NA (PORCINE) 40 MG/0.4 ML DISP.SYRIN SQ SCH (10:22)
[2016-08-18] MEDS ORDERED: PT OWN MED DRAWER 7, Y5N ONE ×2 (10:37→21:01)
--- NOTE | 2016-08-18 16:04 | PN ---
Progress Note, Physician History of Present Illness: patient doing much better no complaints no cough breathing normally - Current Medication List Current Medications: Active Medications Enoxaparin Sodium (Lovenox -) 40 mg SQ DAILY [facility] Last Admin: 08/18/16 10:22 Dose: 40 mg Loratadine (Claritin -) 10 mg PO DAILY [facility] Last Admin: 08/18/16 10:21 Dose: 10 mg Montelukast Sodium (Singulair -) 10 mg PO DAILY [facility] Last Admin: 08/18/16 10:22 Dose: 10 mg Flovent Hfa 44 Mcg Inhaler - Patient Own Med 0 gm IH BID [facility] Last Admin: 08/18/16 10:20 Dose: 2 gm Myrbetriq Er 25 Mg Tablet - Patient Own Med 25 mg PO DAILY [facility] Last Admin: 08/18/16 10:20 Dose: 25 mg Ondansetron HCl (Zofran Injection) 4 mg IVPB Q6H PRN PRN Reason: NAUSEA Polyethylene Glycol (Miralax (For Daily Use) -) 17 gm PO BID [facility] Senna (Senna -) 2 tab PO BID [facility] Solifenacin (Vesicare -) 10 mg PO DAILY [facility] Last Admin: 08/18/16 10:21 Dose: 10 mg Topiramate (Topamax -) 50 mg PO BID [facility] Last Admin: 08/18/16 10:21 Dose: 50 mg - Objective Vital Signs: Vital Signs Temperature 97.8 F 08/18/16 15:35 Pulse Rate 97 H 08/18/16 15:35 Respiratory Rate 18 08/18/16 15:35 Blood Pressure 108/57 08/18/16 15:35 O2 Sat by Pulse Oximetry (%) 98 08/18/16 09:00 Constitutional: Yes: No Distress, Calm Cardiovascular: Yes: Regular Rate and Rhythm Respiratory: Yes: Regular, CTA Bilaterally Musculoskeletal: Yes: WNL Extremities: Yes: WNL Integumentary: Yes: WNL Neurological: Yes: Alert, Oriented Psychiatric: Yes: Alert Labs: CBC, BMP 08/16/16 09:00 08/16/16 08:15 Assessment/Plan pneumonia GERD overactive bladder migraines plan stopped all abx observe if remaining stable final decision can be made
[2016-08-18] MEDS: POLYETHYLENE GLYCOL 3350 119 GM BTL PO SCH (21:45)
[2016-08-19] MEDS: TOPIRAMATE 25 MG TABLET (FP) PO SCH (11:03)
[2016-08-19] MEDS: LORATADINE 10 MG TABLET PO SCH (11:03)
[2016-08-19] MEDS: MONTELUKAST NA 10 MG TABLET PO SCH (11:03)
[2016-08-19] MEDS: SENNOSIDES 8.6MG TABLET (FP) PO SCH (11:04)
[2016-08-19] MEDS: SOLIFENACIN SUCCINATE 5 MG TAB (FP) PO SCH (11:04)
[2016-08-19] MEDS: ENOXAPARIN NA (PORCINE) 40 MG/0.4 ML DISP.SYRIN SQ SCH (11:04)
[2016-08-19] MEDS: POLYETHYLENE GLYCOL 3350 119 GM BTL PO SCH (11:11)
[2016-08-19] MEDS: FLOVENT 44 MCG IH SCH (11:12)
[2016-08-19] MEDS: MYRBETRIQ 25 MG PO SCH (11:12)
--- NOTE | 2016-08-19 13:16 | PN ---
Progress Note, Physician History of Present Illness: patient doing much better no issues - Current Medication List Current Medications: Active Medications Enoxaparin Sodium (Lovenox -) 40 mg SQ DAILY [facility] Last Admin: 08/19/16 11:04 Dose: 40 mg Loratadine (Claritin -) 10 mg PO DAILY [facility] Last Admin: 08/19/16 11:03 Dose: 10 mg Montelukast Sodium (Singulair -) 10 mg PO DAILY [facility] Last Admin: 08/19/16 11:03 Dose: 10 mg Flovent Hfa 44 Mcg Inhaler - Patient Own Med 0 gm IH BID [facility] Last Admin: 08/19/16 11:12 Dose: 0.44 gm Myrbetriq Er 25 Mg Tablet - Patient Own Med 25 mg PO DAILY [facility] Last Admin: 08/19/16 11:12 Dose: 25 mg Ondansetron HCl (Zofran Injection) 4 mg IVPB Q6H PRN PRN Reason: NAUSEA Polyethylene Glycol (Miralax (For Daily Use) -) 17 gm PO BID [facility] Last Admin: 08/19/16 11:11 Dose: 17 grams Senna (Senna -) 2 tab PO BID [facility] Last Admin: 08/19/16 11:04 Dose: 2 tab Solifenacin (Vesicare -) 10 mg PO DAILY [facility] Last Admin: 08/19/16 11:04 Dose: 10 mg Topiramate (Topamax -) 50 mg PO BID [facility] Last Admin: 08/19/16 11:03 Dose: 50 mg - Objective Vital Signs: Vital Signs Temperature 98.4 F 08/19/16 10:00 Pulse Rate 97 H 08/19/16 10:00 Respiratory Rate 18 08/19/16 10:00 Blood Pressure 120/57 08/19/16 10:00 O2 Sat by Pulse Oximetry (%) 98 08/19/16 09:00 Constitutional: Yes: No Distress, Calm Cardiovascular: Yes: Regular Rate and Rhythm Respiratory: Yes: Regular, CTA Bilaterally Gastrointestinal: Yes: Normal Bowel Sounds, Soft Extremities: Yes: WNL Neurological: Yes: Alert, Oriented Psychiatric: Yes: Alert Labs: CBC, BMP 08/16/16 09:00 08/16/16 08:15 Assessment/Plan pneumonia GERD overactive bladder migraines plan stable off of abx continue mgmt as per primary team
--- NOTE | 2016-08-19 13:54 | DS ---
Physical Exam: SUBJECTIVE: Patient seen and examined. She has no acute complaints, she says she feels better today. She is waiting for her mother OBJECTIVE: Vital Signs Period Temp Pulse Resp BP Sys/Mejia Pulse Ox Last 24 Hr 97.8 F-98.4 F 95-101 18-20 101-120/55-76 98-98 PE Neuro: alert, awake cn 2-12intact Pulm: CTAB CV: s1 s2 rrr no mrg Abd: s nt nd +bs Ext: warm, no le edema Skin: hands with melanin changes HOSPITAL COURSE: Date of Admission:08/12/16 Date of Discharge: 08/19/16 Minutes to complete discharge: 35 Discharge Summary Reason For Visit: PNEUMONIA Current Active Problems Pneumonia (Acute) Hospital Course: Initial Hospital Course: Briefly, this 25 year old female with a past medical history of asthma, constipation, migraines, cerebral palsy and Down Syndrome who admitted with a 4 day history of cough, nausea, vomiting and diarrhea. Pt was seen in the ED firstly and treated with levaquin but mother felt she was not improving. She had several episodes of vomiting prior to arrival to the ED, none since receiving zofran. Mother also denies any hospitalization or institutional stay within the past 30 days. Subsequent Hospital Course/Progress Note/Discharge Summary by a/p: A: 25 year-old woman with a PMH of cerebral palsy, Down's syndrome, asthma, and migraines. Admitted for LLL pneumonia. P: 1. Bacterial LLL pneumonia - No infectious signs on discharge - Completed ceftriaxone x 7 days, vancomycin x 6 days 2. Sinusitis/Otitis media, resolved - Completed abx course one week ago. Levaquin completed 3. Asthma - Continue home Singulair, Loratadine 4. Migraines - Stable; continue topamax 5. Diarrhea - Resolved 6. Cerebral palsy/Down's syndrome - At baseline, pt is mentally sharp Dispo: - Home with beds above and pcp follow up Condition: Stable - Instructions Diet, Activity, Other Instructions: Please return to the ED for any new, persistent, or worsening symptoms. Follow up with your PCP in 1 week at [facility] Resume home medications as directed Referrals: Raegan Islas [Primary Care Provider] - Disposition: HOME - Home Medications Comprehensive Discharge Medication List: Ambulatory Orders Albuterol 2.5/Ipratropium 0.5 [Duoneb -] 1 neb NEB Q6H 08/12/16 Beclomethasone Dipropionate [Qvar] 8.7 gm IH DAILY 08/12/16 Loratadine [Claritin -] 10 mg PO DAILY 08/12/16 Mirabegron [Myrbetriq] 50 mg PO DAILY 08/12/16 Montelukast Na [Singulair -] 10 mg PO DAILY 08/12/16 Omeprazole 20 mg PO DAILY 08/12/16 Sennosides [Senna] 17.2 mg PO BID 08/12/16 Solifenacin Succinate [VESIcare] 10 mg PO DAILY 08/12/16 Topiramate [Topamax] 50 mg PO BID 08/12/16 This patient is new to me today: Yes Date on this admission: 08/19/16 Emergency Visit: Yes ED Registration Date: 08/12/16 Care time: The patient presented to the Emergency Department on the above date and was hospitalized for further evaluation of their emergent condition. Critical Care patient: No - Discharge Referral Referred to [facility] Med [facility] No
[2016-08-19 14:44] VITALS: BP 100/60; PULSE 99; TEMP 98.3
== END 2016-08-19 16:59 | disposition home or self-care (01) | DRG 194 ==
LOC: JER 00:04 → JERBED 06:28 → J8W 09:00
PROVIDERS: ADMIT Internal Medicine; ATTEND Nurse Practitioner Acute Care
DX: J15.9 Unspecified bacterial pneumonia (principal); N39.0 Urinary tract infection, site not specified; J45.909 Unspecified asthma, uncomplicated; G43.909 Migraine, unspecified, not intractable, without status migrainosus; G80.9 Cerebral palsy, unspecified; Q90.9 Down syndrome, unspecified; K21.9 Gastro-esophageal reflux disease without esophagitis; K52.9 Noninfective gastroenteritis and colitis, unspecified; N32.81 Overactive bladder; H66.90 Otitis media, unspecified, unspecified ear; J32.9 Chronic sinusitis, unspecified
CPT/HCPCS: 36415; 36600; 71010-TC; 80048; 80053; 81003; 81015; 82150; 82550; 82553; 82803; 83690; 83735; 84100; 84703; 85025; 85027; 87040; 87070; 87205; 87804; 94640; 94761; 97116-GP; 97161-GP; 99283-25; 99285-25

== ENCOUNTER 2017-05-13 17:25 | Emergency (ER) | payer OTHER ==
[2017-05-13 17:32] VITALS: BP 141/90; PULSE 88; TEMP 98.9; BMI 27.2
--- NOTE | 2017-05-13 17:32 | PDOC ---
Rapid Medical Evaluation Chief Complaint: Pain Time Seen by Provider: 05/13/17 17:29 Medical Evaluation: Allergies Allergy/AdvReac Type Severity Reaction Status Date / Time amoxicillin [Amoxicillin] Allergy Intermediate Rash Verified 05/13/17 17:27 05/13/17 17:30 Pt with c/o : pelvic pain, no urinary complaints, lmp 2 weeks ago, last bm yesterday Pt on exam: VSS Pt ordered for: ua, upreg, ucx Pt to proceed to the ED
[2017-05-13 18:23] LABS: URINE APPEARANCE CLEAR; URINE BILIRUBIN NEGATIVE (NEGATIVE); URINE BLOOD NEGATIVE (NEGATIVE); URINE COLOR LT. YELLOW; URINE GLUCOSE (UA) NEGATIVE (NEGATIVE); URINE KETONE NEGATIVE (NEGATIVE); URINE NITRITE NEGATIVE (NEGATIVE); URINE PROTEIN NEGATIVE (NEGATIVE); URINE UROBILINOGEN 0.2 mg/dL (0.2-1.0)
[2017-05-13 21:19] LABS: URINE LEUK ESTERASE TRACE (NEGATIVE)
[2017-05-13 22:42] LABS: URINE BACTERIA FEW /hpf (NEGATIVE); URINE RBC 0-2 /hpf (0-3)
== END 2017-05-13 21:58 | disposition left against medical advice (07) ==
LOC: JER 17:25
DX: R10.2 Pelvic and perineal pain (principal)
CPT/HCPCS: 81003; 81015; 84703; 87077; 87086; 99281-25

== ENCOUNTER 2017-05-14 13:12 | Emergency (ER) | payer OTHER ==
[2017-05-14 13:31] VITALS: BP 119/83; PULSE 87; TEMP 99; BMI 25.6
[2017-05-14 14:33] LABS: PH,URINE 5.5 (5.0-8.0); URINE APPEARANCE CLEAR; URINE BILIRUBIN NEGATIVE (NEGATIVE); URINE BLOOD NEGATIVE (NEGATIVE); URINE COLOR LT. YELLOW; URINE GLUCOSE (UA) NEGATIVE (NEGATIVE); URINE KETONE NEGATIVE (NEGATIVE); URINE NITRITE NEGATIVE (NEGATIVE); URINE PROTEIN NEGATIVE (NEGATIVE); URINE UROBILINOGEN 0.2 mg/dL (0.2-1.0)
[2017-05-14] MEDS ORDERED: FLUCONAZOLE 100 MG TABLET (UD) PO ONE (15:32)
[2017-05-14] MEDS ORDERED: FLUCONAZOLE 100 MG TABLET (UD) ONE (15:36)
--- NOTE | 2017-05-14 15:37 | PDOC ---
History of Present Illness - General Chief Complaint: Urinary Problem Stated Complaint: PELVIC PAIN Time Seen by Provider: 05/14/17 14:06 History Source: Patient Exam Limitations: Physical Impairment (mentally disabled,) - History of Present Illness Travel History: No Initial Comments: 05/14/17 15:33 26 yr female brought in by mother for complaint of vaginal irritation pt c/o 3 days of vaginal irritation no fever no abd pain neg chills or diarrhea mother is concerned pt may have placed something in the vagina pt is non verbal at this time, however mom states she usually talks but isn't talking much today Past History - Past Medical History Allergies/Adverse Reactions: Allergies Allergy/AdvReac Type Severity Reaction Status Date / Time amoxicillin [Amoxicillin] Allergy Intermediate Rash Verified 05/14/17 13:31 Home Medications: Ambulatory Orders Albuterol 2.5/Ipratropium 0.5 [Duoneb -] 1 neb NEB Q6H 08/12/16 Beclomethasone Dipropionate [Qvar] 8.7 gm IH DAILY 08/12/16 Loratadine [Claritin -] 10 mg PO DAILY 08/12/16 Mirabegron [Myrbetriq] 50 mg PO DAILY 08/12/16 Montelukast Na [Singulair -] 10 mg PO DAILY 08/12/16 Omeprazole 20 mg PO DAILY 08/12/16 Sennosides [Senna] 17.2 mg PO BID 08/12/16 Solifenacin Succinate [VESIcare] 10 mg PO DAILY 08/12/16 Topiramate [Topamax] 50 mg PO BID 08/12/16 Anemia: No Asthma: Yes (WEAK RESPIRATORY SYSTEM) Cancer: No Cardiac Disorders: No CVA: No COPD: No CHF: No Dementia: No Diabetes: No GI Disorders: Yes (CONSTIPATION) Disorders: No HTN: No Hypercholesterolemia: No Liver Disease: No Seizures: Yes (1 year old) Thyroid Disease: Yes (Hypothyroid) Other medical history: DEVELOPMENTALLY DELAYED. - Surgical History Abdominal Surgery: No Appendectomy: No Cardiac Surgery: No Cholecystectomy: No Lung Surgery: No Neurologic Surgery: No Orthopedic Surgery: No - Suicide/Smoking/Psychosocial Hx Smoking Status: No Smoking History: Never smoked Have you smoked in the past 12 months: No Number of Cigarettes Smoked Daily: 0 Hx Alcohol Use: No Drug/Substance Use Hx: No Substance Use Type: None Abd/GI Specific PMHX - Complaint Specific PMHX Colitis: No Diverticulitis: No Gall Bladder Disease: No GERD: No Hepatitis: No Irritable Bowel Synd (IBS): No Pancreatitis: No GI Ulcer Disease: No Review of Systems - Review of Systems Able to Perform ROS?: Yes Is the patient limited [place] proficient: No Constitutional: No: Symptoms Reported HEENTM: No: Symptoms Reported Respiratory: No: Symptoms reported Cardiac (ROS): No: Symptoms Reported ABD/GI: No: Symptoms Reported : Yes: Symptoms Reported, See HPI Musculoskeletal: No: Symptoms Reported Integumentary: Yes: Symptoms Reported Neurological: Yes: Symptoms reported *Physical Exam - Vital Signs Last Vital Signs Temp Pulse Resp BP Pulse Ox 99.0 F 87 20 119/83 99 05/14/17 13:25 05/14/17 13:25 05/14/17 13:25 05/14/17 13:25 05/14/17 13:25 - Physical Exam General Appearance: Yes: Nourished, Appropriately Dressed HEENT: positive: EOMI, GEOVANNI Neck: positive: Supple Female Pelvic Exam: positive: normal size ovaries, discharge (white, yeast like ), other (erythematous mildy inflamed labia minora, no bleeding, skin intact , vaginal discharge noted ). negative: CMT, adnexal tenderness, vaginal bleeding Gastrointestinal/Abdominal: positive: Normal Bowel Sounds, Soft. negative: Tender ED Treatment Course - ADDITIONAL ORDERS Additional order review: Laboratory Results 05/14/17 14:00 Urine Color Lt. yellow Urine Appearance Clear Urine pH 5.5 Ur Specific [place] 1.015 Urine Protein Negative Urine Glucose (UA) Negative Urine Ketones Negative Urine Blood Negative Urine Nitrite Negative Urine Bilirubin Negative Urine Urobilinogen 0.2 Medical Decision Making - Medical Decision Making 05/14/17 15:39 cc: irritated vaginal area vaginal discharge cultures have been collected will treat with diflucan for possible yeast infection, pt has thick white curd like discharge mom to be notified if any results are positive, mom is the primary caregiver, pt is disabled. 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
[2017-05-14 19:17] LABS: URINE LEUK ESTERASE Negative (NEGATIVE)
== END 2017-05-14 15:38 | disposition home or self-care (01) ==
LOC: JERFT 13:12
DX: B37.3 Candidiasis of vulva and vagina (principal); E03.9 Hypothyroidism, unspecified; R62.50 Unspecified lack of expected normal physiological development in childhood; J45.909 Unspecified asthma, uncomplicated; K59.09 Other constipation
CPT/HCPCS: 36415; 81003; 87070; 87086; 87205; 87491; 87591; 99281-25

== ENCOUNTER 2017-08-05 21:44 | Emergency (ER) | payer OTHER ==
[2017-08-05 21:56] VITALS: BP 108/60; PULSE 91; TEMP 97.6; BMI 26.9
--- NOTE | 2017-08-05 22:11 | PDOC ---
History of Present Illness - General History Source: Parent(s) Exam Limitations: Other (MR, nonverbal) - History of Present Illness Initial Comments: 08/05/17 22:14 The patient is a 26 year old female patient with significant medical history of asthma, constipation and developmentally delayed, who is presenting to the ED with mother for evaluation of sudden onset of diffuse abdominal cramping at 6PM this evening. The mother denies sick contacts. The mother states the patient is currently on her menstrual cycle. The mother reports her daughter is occasionally verbal. Allergies: amoxicillin PMD: Raegan Islas MD ([facility]) <Kena Serna - Last Filed: 08/05/17 22:53> - General History Source: Parent(s) <Ld Haynes - Last Filed: 08/06/17 03:33> - General Chief Complaint: Nausea/Vomiting Stated Complaint: VOMITING Time Seen by Provider: 08/05/17 22:03 Past History <Kena Serna - Last Filed: 08/05/17 22:53> - Past Medical History Anemia: No Asthma: Yes (WEAK RESPIRATORY SYSTEM) Cancer: No Cardiac Disorders: No CVA: No COPD: No CHF: No Dementia: No Diabetes: No GI Disorders: Yes (CONSTIPATION) Disorders: No HTN: No Hypercholesterolemia: No Liver Disease: No Seizures: Yes (1 year old) Thyroid Disease: Yes (Hypothyroid) - Surgical History Abdominal Surgery: No Appendectomy: No Cardiac Surgery: No Cholecystectomy: No Lung Surgery: No Neurologic Surgery: No Orthopedic Surgery: No - Suicide/Smoking/Psychosocial Hx Smoking Status: No Smoking History: Never smoked Have you smoked in the past 12 months: No Number of Cigarettes Smoked Daily: 0 Information on smoking cessation initiated: No Hx Alcohol Use: No Drug/Substance Use Hx: No Substance Use Type: None <Ld Haynes - Last Filed: 08/06/17 03:33> - Past Medical History Allergies/Adverse Reactions: Allergies Allergy/AdvReac Type Severity Reaction Status Date / Time amoxicillin [Amoxicillin] Allergy Intermediate Rash Verified 08/05/17 21:54 Home Medications: Ambulatory Orders Albuterol 2.5/Ipratropium 0.5 [Duoneb -] 1 neb NEB Q6H 08/12/16 Beclomethasone Dipropionate [Qvar] 8.7 gm IH DAILY 08/12/16 Loratadine [Claritin -] 10 mg PO DAILY 08/12/16 Mirabegron [Myrbetriq] 50 mg PO DAILY 08/12/16 Montelukast Na [Singulair -] 10 mg PO DAILY 08/12/16 Omeprazole 20 mg PO DAILY 08/12/16 Sennosides [Senna] 17.2 mg PO BID 08/12/16 Solifenacin Succinate [VESIcare] 10 mg PO DAILY 08/12/16 Topiramate [Topamax] 50 mg PO BID 08/12/16 Fluconazole [Diflucan] 150 mg PO ONCE #1 tablet 08/06/17 Metoclopramide HCl [Reglan -] 10 mg PO QID #28 tablet 08/06/17 levoFLOXacin [Levaquin -] 500 mg PO DAILY #7 tablet 08/06/17 Review of Systems - Review of Systems Able to Perform ROS?: No (nonverbal, as per mom) <Kena Serna - Last Filed: 08/05/17 22:53> *Physical Exam - Vital Signs Last Vital Signs Temp Pulse Resp BP Pulse Ox 97.6 F 91 H 20 108/60 98 08/05/17 21:54 08/05/17 21:54 08/05/17 21:54 08/05/17 21:54 08/05/17 21:54 - Physical Exam Comments: 08/05/17 22:14 GENERAL: Well developed, well nourished. Awake and alert. No acute distress. HEENT: Normocephalic, atraumatic. PERRLA, EOMI. No conjunctival pallor. Sclera are non- icteric. Moist mucous membranes. Oropharynx is clear. NECK: Supple. Full ROM. No JVD. Carotid pulses 2+ and symmetric, without bruits. No thyromegaly. No lymphadenopathy. CARDIOVASCULAR: Regular rate and rhythm. No murmurs, rubs, or gallops. Distal pulses are 2+ and symmetric. PULMONARY: No evidence of respiratory distress. Lungs clear to auscultation bilaterally. No wheezing, rales or rhonchi. ABDOMINAL: (+) diffusely tender to palpation. Soft. Non-distended. No rebound or guarding. No organomegaly. Normoactive bowel sounds. MUSCULOSKELETAL Normal range of motion at all joints. No bony deformities or tenderness. No CVA tenderness. EXTREMITIES: No cyanosis. No clubbing. No edema. No calf tenderness. SKIN: Warm and dry. Normal capillary refill. No rashes. No jaundice. NEUROLOGICAL: Nonverbal, Alert, awake, appropriate. Cranial nerves 2-12 intact. Normoreflexic in the upper and lower extremities. Toes are down-going bilaterally. Gait is normal without ataxia. PSYCHIATRIC: Cooperative. Good eye contact. Appropriate mood and affect. <Kena Serna - Last Filed: 08/05/17 22:53> - Vital Signs Last Vital Signs Temp Pulse Resp BP Pulse Ox 97.6 F 91 H 20 108/60 98 08/05/17 21:54 08/05/17 21:54 08/05/17 21:54 08/05/17 21:54 08/05/17 21:54 <Ld Haynes - Last Filed: 08/06/17 03:33> ED Treatment Course - LABORATORY CBC & Chemistry Diagram: 08/05/17 22:19 08/05/17 22:19 <Ld Haynes - Last Filed: 08/06/17 03:33> Medical Decision Making - Medical Decision Making 08/06/17 03:31 Dr. Haynes: The scribe's documentation has been prepared under my direction and personally reviewed by me in its entirery. I confirm that the note above accurately reflects all work, treatment, procedures, and medical decision making performed by me. patient now appears better after IV antibiotics. patient will be discharged and antibiotics prescribed and sent to her pharmacy <Ld Haynes - Last Filed: 08/06/17 03:33> *DC/Admit/Observation/Transfer - Attestations Scribe Attestion: 08/05/17 22:15 Documentation prepared by Kena Serna, acting as chief medical director for dL Haynes DO <Kena Serna - Last Filed: 08/05/17 22:53> - Discharge Dispostion Admit: No <Ld Haynes - Last Filed: 08/06/17 03:33> Diagnosis at time of Disposition: UTI (urinary tract infection) Qualifiers: Urinary tract infection type: site unspecified Hematuria presence: without hematuria Qualified Code(s): N39.0 - Urinary tract infection, site not specified - Discharge Dispostion Disposition: HOME Condition at time of disposition: Stable - Referrals Referrals: Raegan Islas [Primary Care Provider] - - Patient Instructions Printed Discharge Instructions: DI for Urinary Tract Infection (UTI) - Post Discharge Activity Forms/Work/School Notes: Parent(s) Back to Work Note, Back to School
[2017-08-05] MEDS ORDERED: SODIUM CHLORIDE 1,000 ML IV STA (22:12)
[2017-08-05] MEDS ORDERED: ONDANSETRON 4 MG/2 ML VIAL IVPUSH STA (22:15)
[2017-08-05] MEDS ORDERED: KETOROLAC TROMETHAMINE 30 MG/1 ML VIAL IVPUSH ONE (22:15)
[2017-08-05] MEDS ORDERED: ONDANSETRON 4 MG/2 ML VIAL ONE (22:49)
[2017-08-05] MEDS ORDERED: KETOROLAC TROMETHAMINE 30 MG/1 ML VIAL ONE (22:49)
[2017-08-05 23:16] LABS: BASO % 0.1 % (0-2.0); EOS % 0.1 % (0-4.5); HEMOGLOBIN 12.7 GM/dL (10.7-15.3); LYMPH % 4.2 % (8-40); MCH 25.8 pg (25.7-33.7); MCHC 32.5 g/dl (32.0-36.0); MEAN CELL VOLUME 79.3 fl (80-96); MEAN PLT VOLUME 8.9 fl (7.5-11.1); MONO % 6.9 % (3.8-10.2); NEUT % 88.7 % (42.8-82.8); PLATELET COUNT 247 K/MM3 (134-434); RBC 4.92 M/mm3 (3.60-5.2); RDW 17.8 % (11.6-15.6); WHITE BLOOD COUNT 7.3 K/mm3 (4.0-10.0)
[2017-08-05 23:50] LABS: ALBUMIN 4.1 g/dl (3.4-5.0); ALK PHOS 57 U/L (45-117); ANION GAP 14 (8-16); BILIRUBIN,TOTAL 0.5 mg/dL (0.2-1.0); BLOOD UREA NITROGEN 12 mg/dL (7-18); CHLORIDE 102 mmol/L (98-107); CO2 27 mmol/L (21-32); CREATININE 0.9 mg/dL (0.55-1.02); GLUCOSE,RANDOM 101 mg/dL (74-106); LIPASE 107 U/L (73-393); MAGNESIUM 2.2 mg/dL (1.8-2.4); POTASSIUM 3.8 mmol/L (3.5-5.1); SGOT/AST 13 U/L (15-37); SGPT/ALT 13 U/L (12-78); SODIUM 143 mmol/L (136-145); TOT PROT 7.5 g/dl (6.4-8.2)
[2017-08-06] MEDS ORDERED: DICYCLOMINE HCL 10 MG CAPSULE ONE (01:35)
[2017-08-06 01:58] LABS: URINE APPEARANCE CLOUDY; URINE BILIRUBIN NEGATIVE (NEGATIVE); URINE BLOOD 3+ (NEGATIVE); URINE COLOR YELLOW; URINE GLUCOSE (UA) NEGATIVE (NEGATIVE); URINE KETONE TRACE (NEGATIVE); URINE NITRITE POSITIVE (NEGATIVE); URINE UROBILINOGEN NEGATIVE mg/dL (0.2-1.0)
[2017-08-06] MEDS ORDERED: DICYCLOMINE HCL 10 MG CAPSULE PO ONE (01:59)
[2017-08-06 02:04] LABS: URINE LEUK ESTERASE 3+ (NEGATIVE); URINE PROTEIN 1+ (NEGATIVE)
[2017-08-06 02:05] LABS: EPI CELLS MODERATE /HPF (FEW); URINE BACTERIA RARE /hpf (NONE SEEN); URINE MUCUS RARE
[2017-08-06] MEDS ORDERED: METOCLOPRAMIDE HCL INJECTION 10 MG/2 ML VIAL IVPUSH ONE (02:10)
[2017-08-06] MEDS ORDERED: METOCLOPRAMIDE HCL INJECTION 10 MG/2 ML VIAL ONE (02:32)
== END 2017-08-06 03:57 | disposition home or self-care (01) ==
LOC: JER 21:44
PROC: 3E03329 Introduction of Other Anti-infective into Peripheral Vein, Percutaneous Approach (ICD-10-PCS; principal; 2017-08-05)
PROC: 3E033GC Introduction of Other Therapeutic Substance into Peripheral Vein, Percutaneous Approach (ICD-10-PCS; 2017-08-05)
PROC: 3E033GC Introduction of Other Therapeutic Substance into Peripheral Vein, Percutaneous Approach (ICD-10-PCS; 2017-08-05)
PROC: 3E0333Z Introduction of Anti-inflammatory into Peripheral Vein, Percutaneous Approach (ICD-10-PCS; 2017-08-05)
DX: N39.0 Urinary tract infection, site not specified (principal); J45.909 Unspecified asthma, uncomplicated; E03.9 Hypothyroidism, unspecified; Z86.69 Personal history of other diseases of the nervous system and sense organs
CPT/HCPCS: 36415; 71046-TC-FY; 74019-TC-FY; 80053; 81003; 81015; 83690; 83735; 84703; 85025; 86850; 86900; 86901; 96365; 96375; 99281-25

== ENCOUNTER 2018-09-27 12:18 | Emergency (ER) | payer OTHER ==
[2018-09-27 12:33] VITALS: BP 136/99; PULSE 95; TEMP 99.2; BMI 27.4
--- NOTE | 2018-09-27 13:43 | PDOC ---
History of Present Illness - General Chief Complaint: Pain Stated Complaint: ANKLE INJURY Time Seen by Provider: 09/27/18 12:35 History Source: Patient, Parent(s) (mom) Exam Limitations: No Limitations - History of Present Illness Pain Location: reports: lower extremity (b/l ankle, L knee), upper extremity (R upper arm) Loss of Consciousness: no loss of consciousness Past History - Travel Traveled outside of the country in the last 30 days: No Close contact w/someone who was outside of country & ill: No - Past Medical History Allergies/Adverse Reactions: Allergies Allergy/AdvReac Type Severity Reaction Status Date / Time amoxicillin [Amoxicillin] Allergy Intermediate Rash Verified 09/27/18 12:30 Home Medications: Ambulatory Orders Albuterol 2.5/Ipratropium 0.5 [Duoneb -] 1 neb NEB Q6H 08/12/16 Beclomethasone Dipropionate [Qvar] 8.7 gm IH DAILY 08/12/16 Loratadine [Claritin -] 10 mg PO DAILY 08/12/16 Mirabegron [Myrbetriq] 50 mg PO DAILY 08/12/16 Montelukast Na [Singulair -] 10 mg PO DAILY 08/12/16 Omeprazole 20 mg PO DAILY 08/12/16 Sennosides [Senna] 17.2 mg PO BID 08/12/16 Solifenacin Succinate [VESIcare] 10 mg PO DAILY 08/12/16 Topiramate [Topamax] 50 mg PO BID 08/12/16 Fluconazole [Diflucan] 150 mg PO ONCE #1 tablet 08/06/17 Metoclopramide HCl [Reglan -] 10 mg PO QID #28 tablet 08/06/17 levoFLOXacin [Levaquin -] 500 mg PO DAILY #7 tablet 08/06/17 Ibuprofen 600 mg PO ACDIN #21 tablet 09/27/18 Anemia: No Asthma: Yes (WEAK RESPIRATORY SYSTEM) Cancer: No Cardiac Disorders: No CVA: No COPD: No CHF: No Dementia: No Diabetes: No GI Disorders: Yes (CONSTIPATION) Disorders: No HTN: No Hypercholesterolemia: No Liver Disease: No Seizures: Yes (1 year old) Thyroid Disease: Yes (Hypothyroid) Other medical history: developmental delays - Surgical History Abdominal Surgery: No Appendectomy: No Cardiac Surgery: No Cholecystectomy: No Lung Surgery: No Neurologic Surgery: No Orthopedic Surgery: No - Suicide/Smoking/Psychosocial Hx Smoking Status: No Smoking History: Never smoked Have you smoked in the past 12 months: No Number of Cigarettes Smoked Daily: 0 Hx Alcohol Use: No Drug/Substance Use Hx: No Substance Use Type: None Review of Systems - Review of Systems Constitutional: No: Chills, Fever Musculoskeletal: Yes: Joint Pain, Joint Swelling. No: Back Pain, Muscle Pain, Muscle Weakness, Neck Pain, Joint Stiffness Neurological: No: Headache *Physical Exam - Vital Signs Last Vital Signs Temp Pulse Resp BP Pulse Ox 99.2 F 95 H 18 136/99 99 09/27/18 12:25 09/27/18 12:25 09/27/18 12:25 09/27/18 12:25 09/27/18 12:25 - Physical Exam General Appearance: Yes: Nourished Respiratory/Chest: positive: Lungs Clear, Normal Breath Sounds Cardiovascular: positive: Regular Rhythm, Regular Rate, S1, S2 Musculoskeletal: positive: Other (b/l ankle swelling, L>R, + lateral malleous sweling, distal pulse intact, FROM. + L knee--FROM, + mild swelling. R upper arm : + mild swelling, no ecchymosis. ) Neurologic: positive: tobacco scrap sifter II-XII NML intact, Fully Oriented, Alert ED Treatment Course - RADIOLOGY Radiology Studies Ordered: Category Date Time Status ANKLE-LEFT [RAD] Stat Radiology 09/27/18 12:56 Ordered ANKLE-RIGHT [RAD] Stat Radiology 09/27/18 12:56 Ordered HUMERUS-RIGHT [RAD] Stat Radiology 09/27/18 12:56 Ordered KNEE 3 POS-LEFT [RAD] Stat Radiology 09/27/18 13:02 Ordered Medical Decision Making - Medical Decision Making 09/27/18 13:40 27y/o F with MR (mom present), initially presented with L ankle pain s/p slip and fall in the bathroom 4 days ago, denies LOC or head trauma Mom requested the following areas to be xray: R ankle, L knee, R humerus area She states it areas looks swollen Xray ordered, mom because extremely verbally abusive to me in the ER when advised about the risk of unnecessary radiation. Pt denies any pain in the joints that the additional film was requested. 09/27/18 13:43 09/27/18 15:27 xrays all negative for fracture + ? osteochondroal defect in left talar dome, non emergent MRI recommended Pt given ortho referral as outpt air cast applied to left ankle *DC/Admit/Observation/Transfer Diagnosis at time of Disposition: Acute pain of both ankles Knee pain, left Qualifiers: Chronicity: acute Qualified Code(s): M25.562 - Pain in left knee - Discharge Dispostion Disposition: HOME Condition at time of disposition: Stable - Prescriptions Prescriptions: Ibuprofen 600 mg PO ACDIN #21 tablet - Referrals Referrals: Raegan Islas [Primary Care Provider] - Andres Casas DO [Staff Physician] - - Patient Instructions Printed Discharge Instructions: DI for Ankle Pain, DI for Arm Pain, DI for Knee Pain Additional Instructions: Your xrays was negative for fractures There is a bony abnormality noted in the left ankle, this is not related to the injury, please follow up with orthopedic for further evaluation Please return to the ER if worsening symptoms occurs - Post Discharge Activity
[2018-09-27] MEDS ORDERED: ACETAMINOPHEN 325 MG TABLET (FP) PO ONE (14:11)
[2018-09-27] MEDS ORDERED: ACETAMINOPHEN 325 MG TABLET (FP) ONE (14:30)
== END 2018-09-27 15:45 | disposition home or self-care (01) ==
LOC: JERFT 12:18
DX: M25.572 Pain in left ankle and joints of left foot (principal); M25.571 Pain in right ankle and joints of right foot; M25.562 Pain in left knee; M25.511 Pain in right shoulder; M79.601 Pain in right arm; W01.0XXA Fall on same level from slipping, tripping and stumbling without subsequent striking against object, initial encounter; Y93.89 Activity, other specified; Y92.031 Bathroom in apartment as the place of occurrence of the external cause; Y99.8 Other external cause status
CPT/HCPCS: 73060-TC-RT-FY; 73562-TC-LT-FY; 73610-TC-LT-FY; 73610-TC-RT-FY; 99281-25

== ENCOUNTER 2018-11-19 23:05 | Emergency (ER) | payer OTHER | END 2018-11-20 02:50 | disposition home or self-care (01) | LOC: JER 23:05 | PROC: 3E033NZ Introduction of Analgesics, Hypnotics, Sedatives into Peripheral Vein, Percutaneous Approach (ICD-10-PCS; principal; 2018-11-19) | PROC: 3E0333Z Introduction of Anti-inflammatory into Peripheral Vein, Percutaneous Approach (ICD-10-PCS; 2018-11-19) | DX: R07.9 Chest pain, unspecified (principal); Z87.01 Personal history of pneumonia (recurrent); E03.9 Hypothyroidism, unspecified; Z87.09 Personal history of other diseases of the respiratory system ==

== ENCOUNTER 2019-12-07 01:20 | Emergency (ER) | payer OTHER ==
[2019-12-07 01:27] VITALS: BP 125/88; PULSE 83; TEMP 98.3; BMI 25.6
[2019-12-07] MEDS ORDERED: DIPHTH,PERTUSS(ACELL),TET 0.5 ML DISP.SYRIN IM ONE ×2 (02:22→02:32)
== END 2019-12-07 02:41 | disposition home or self-care (01) ==
LOC: JER 01:20
PROC: 3E0234Z Introduction of Serum, Toxoid and Vaccine into Muscle, Percutaneous Approach (ICD-10-PCS; principal; 2019-12-07)
DX: S01.312A Laceration without foreign body of left ear, initial encounter (principal); Y99.9 Unspecified external cause status
CPT/HCPCS: 90471; 90715; 99282-25

== ENCOUNTER 2019-12-15 23:28 | Emergency (ER) | payer OTHER ==
[2019-12-16 00:03] VITALS: BP 132/82; PULSE 85; TEMP 98.3; BMI 25.9
--- NOTE | 2019-12-16 00:03 | PDOC ---
History of Present Illness - General Chief Complaint: Pain Stated Complaint: EAR PROBLEM Time Seen by Provider: 12/15/19 23:56 History Source: Patient, Parent(s) Exam Limitations: No Limitations - History of Present Illness Initial Comments: 12/16/19 00:37 29 year old female with devolpmental delay and down syndrome presents to the ED complaining of pain to left ear. Pt had laceration repaired here a few days ago with steri strips. pt states her glasses are aggravating the area. States she has been keeping the area clean and dry. Denies discharge for the laceration, active bleeding, fever chills, N/V. Past History - Medical History Allergies/Adverse Reactions: Allergies Allergy/AdvReac Type Severity Reaction Status Date / Time amoxicillin [Amoxicillin] Allergy Intermediate Rash Verified 12/07/19 01:28 Home Medications: Ambulatory Orders Albuterol 2.5/Ipratropium 0.5 [Duoneb -] 1 neb NEB Q6H 08/12/16 Beclomethasone Dipropionate [Qvar] 8.7 gm IH DAILY 08/12/16 Loratadine [Claritin -] 10 mg PO DAILY 08/12/16 Mirabegron [Myrbetriq] 50 mg PO DAILY 08/12/16 Montelukast Na [Singulair -] 10 mg PO DAILY 08/12/16 Omeprazole 20 mg PO DAILY 08/12/16 Sennosides [Senna] 17.2 mg PO BID 08/12/16 Solifenacin Succinate [VESIcare] 10 mg PO DAILY 08/12/16 Topiramate [Topamax] 50 mg PO BID 08/12/16 Fluconazole [Diflucan] 150 mg PO ONCE #1 tablet 08/06/17 Metoclopramide HCl [Reglan -] 10 mg PO QID #28 tablet 08/06/17 levoFLOXacin [Levaquin -] 500 mg PO DAILY #7 tablet 08/06/17 Ibuprofen 600 mg PO ACDIN #21 tablet 09/27/18 Methylprednisolone [Medrol Dose [place]] 4 mg PO ASDIR #21 tablet 11/20/18 Anemia: No Asthma: Yes (WEAK RESPIRATORY SYSTEM) Cancer: No Cardiac Disorders: No CVA: No COPD: No CHF: No Dementia: No Diabetes: No GI Disorders: Yes (CONSTIPATION) Disorders: No HTN: No Hypercholesterolemia: No Liver Disease: No Seizures: Yes (1 year old) Thyroid Disease: Yes (Hypothyroid) - Surgical History Abdominal Surgery: No Appendectomy: No Cardiac Surgery: No Cholecystectomy: No Lung Surgery: No Neurologic Surgery: No Orthopedic Surgery: No - Psycho-Social/Smoking History Smoking Status: No Smoking History: Never smoked Have you smoked in the past 12 months: No Number of Cigarettes Smoked Daily: 0 Review of Systems - Review of Systems Constitutional: No: Chills, Fever HEENTM: Yes: Ear Pain. No: Blurred Vision, Ear Discharge, Nose Pain, Hearing Loss Respiratory: No: Cough, Shortness of Breath, SOB at Rest Cardiac (ROS): No: Chest Pain ABD/GI: No: Abdominal Distended : No: Burning, Dysuria Musculoskeletal: No: Back Pain, Gout, Joint Pain Integumentary: No: Change in Color, Dryness, Erythema, Rash Neurological: No: Headache, Numbness, Paresthesia *Physical Exam - Physical Exam 12/16/19 00:41 Gen: AAOx 3, no acute distress, comfortable, no signs of respiratory distress HENT: atraumatic, normocephalic Left ear: well healing laceration to pinna of ear without erythema bleeding or discharge. Nasal mucosa without erythema. Oropharynx without erythema or exudates. Mucous membranes moist. EYES: PERRL, EOM intact, conjunctiva pink NECK: supple; trachea midline; no JVD, no lymphadenopathy, or thyromegaly CV: RRR no murmurs, gallops, or rubs. CHEST: CTA b/l no wheezing, rales or rhonchi ABD: +BS/ND. no TTP; soft, no rebound, no guarding EXTREMITY: no cyanosis or erythema. 2+ dorsalis pedis, posterior tibial, and radial pulse. No pedal edema; no calf swelling or tenderness SKIN: no rash, warm and dry, no diaphoresis HEME: no purpura or ecchymosis NEURO: normal speech, CN II-XII intact, sensation intact, normal gait, no cerebellar deficits MS: 5/5 strength in all extremities, FROM intact in all extremities. Medical Decision Making - Medical Decision Making 12/16/19 00:41 29 year old female with well healing laceration. VSS Will change steri strips and apply tape to glasses for comfort. Dressing changed pt safe and stable for discharge Wound care instructions given Supportive care instructions explained and given to pt. Reasons to return emergently to ER explained and given. Importance of follow up with PMD and other specialists as indicated stressed to pt. Pt verbalized understanding of ins tructions. Pt to follow up with PMD in 2 days. Discharge - Discharge Information Problems reviewed: Yes Clinical Impression/Diagnosis: Laceration of ear Qualifiers: Encounter type: subsequent encounter Laterality: left Qualified Code(s): S01.312D - Laceration without foreign body of left ear, subsequent encounter Condition: Stable Disposition: HOME - Admission No - Follow up/Referral Referrals: Raegan Islas [Primary Care Provider] - - Patient Discharge Instructions Patient Printed Discharge Instructions: DI for Ear Pain-Adult Additional Instructions: Keep area clean and dry - Post Discharge Activity
--- NOTE | 2019-12-16 00:05 | PDOC ---
*Physical Exam - Vital Signs Last Vital Signs Temp Pulse Resp BP Pulse Ox 98.3 F 85 16 132/82 97 12/15/19 23:59 12/15/19 23:59 12/15/19 23:59 12/15/19 23:59 12/15/19 23:59 Medical Decision Making - Medical Decision Making 12/16/19 00:05 Patient seen by the advanced practice provider under my supervision. Ancillary testing reviewed as necessary. I agree with plan as outlined by the advanced practice provider. Discharge - Discharge Information Problems reviewed: Yes Clinical Impression/Diagnosis: Laceration of ear Qualifiers: Encounter type: subsequent encounter Laterality: left Qualified Code(s): S01.312D - Laceration without foreign body of left ear, subsequent encounter Condition: Stable Disposition: HOME - Follow up/Referral Referrals: Raegan Islas [Primary Care Provider] - - Patient Discharge Instructions Patient Printed Discharge Instructions: DI for Ear Pain-Adult Additional Instructions: Keep area clean and dry - Post Discharge Activity
== END 2019-12-16 00:05 | disposition home or self-care (01) ==
LOC: JER 23:28
DX: S01.312A Laceration without foreign body of left ear, initial encounter (principal); Y99.9 Unspecified external cause status; Z48.00 Encounter for change or removal of nonsurgical wound dressing
CPT/HCPCS: 99281-25

== ENCOUNTER 2021-02-18 13:41 | Emergency (ER) | payer OTHER ==
[2021-02-18 13:59] VITALS: BP 130/91; PULSE 100; TEMP 98.2; BMI 25.6
[2021-02-18] MEDS ORDERED: IBUPROFEN 600 MG TABLET (FP) PO ONE ×2 (15:47→16:00)
== END 2021-02-18 16:35 | disposition home or self-care (01) ==
LOC: JERFT 13:41
DX: H60.92 Unspecified otitis externa, left ear (principal)
CPT/HCPCS: 99283-25

== ENCOUNTER 2021-09-21 00:05 | Emergency (ER) | payer OTHER ==
[2021-09-21 00:14] VITALS: BP 121/87; PULSE 87; TEMP 97.1; BMI 27.4
[2021-09-21] MEDS ORDERED: ACETAMINOPHEN 500 MG TABLET (FP) PO ONE (01:45)
[2021-09-21] MEDS ORDERED: ACETAMINOPHEN 325 MG TABLET (FP) ONE (02:21)
== END 2021-09-21 03:25 | disposition home or self-care (01) ==
LOC: JER 00:05
DX: M79.631 Pain in right forearm (principal); M79.632 Pain in left forearm; V49.50XA Passenger injured in collision with unspecified motor vehicles in traffic accident, initial encounter
CPT/HCPCS: 73090-TC-LT-FY; 73090-TC-RT-FY; 73562-TC-LT-FY; 73562-TC-RT-FY; 99284-25

== ENCOUNTER 2021-09-21 21:37 | Emergency (ER) | payer OTHER ==
[2021-09-21 22:06] VITALS: BP 110/78; PULSE 84; TEMP 98; BMI 27.4
[2021-09-22] MEDS ORDERED: KETOROLAC TROMETHAMINE 30 MG/1 ML VIAL IM ONE (00:31)
[2021-09-22] MEDS ORDERED: KETOROLAC TROMETHAMINE 30 MG/1 ML VIAL ONE (01:12)
[2021-09-22] MEDS ORDERED: LIDOCAINE 5% TOPICAL PATCH TP ONE (02:07)
[2021-09-22] MEDS ORDERED: LIDOCAINE 5% TOPICAL PATCH ONE (02:13)
[2021-09-22] MEDS ORDERED: LIDOCAINE PATCH REMOVAL MC SCH (22:00)
== END 2021-09-22 03:16 | disposition home or self-care (01) ==
LOC: JER 21:37
PROC: 3E023GC Introduction of Other Therapeutic Substance into Muscle, Percutaneous Approach (ICD-10-PCS; principal; 2021-09-21)
DX: M54.89 Other dorsalgia (principal); V49.50XA Passenger injured in collision with unspecified motor vehicles in traffic accident, initial encounter
CPT/HCPCS: 71045-TC-FY; 73030-TC-LT-FY; 73030-TC-RT-FY; 93005; 93010; 99284-25

== ENCOUNTER 2021-11-16 19:31 | Emergency (ER) | payer OTHER ==
[2021-11-16 19:42] VITALS: BP 132/92; PULSE 85; TEMP 97; BMI 27.2
[2021-11-16] MEDS ORDERED: ERYTHROMYCIN 0.5% OPHTHALMIC OINTMENT 3.5 GM TUBE ONE (21:41)
== END 2021-11-16 20:44 | disposition home or self-care (01) ==
LOC: JER 19:31
DX: H10.33 Unspecified acute conjunctivitis, bilateral (principal)
CPT/HCPCS: 99283-25

== ENCOUNTER 2021-11-26 19:36 | Inpatient (IN) | payer OTHER ==
[2021-11-26] MEDS ORDERED: ACETAMINOPHEN 1000 MG/100 ML BAG IVPB ONE (20:43)
[2021-11-26 21:49] LABS: VENOUS O2 SATURATION 73.1 % (70-80); VENOUS PCO2 46.4 mmHg (38-52); VENOUS PH 7.363 (7.310-7.410)
[2021-11-26 21:52] LABS: BASO % 0.2 % (0-2.0); EOS % 0.9 % (0-4.5); HEMATOCRIT 40.8 % (32.4-45.2); HEMOGLOBIN 13.8 GM/dL (10.7-15.3); LYMPH % 11.7 % (8-40); MCH 27.7 pg (25.7-33.7); MCHC 33.9 g/dl (32.0-36.0); MEAN CELL VOLUME 81.6 fl (80-96); MEAN PLT VOLUME 8.4 fl (7.5-11.1); MONO % 6.1 % (3.8-10.2); NEUT % 81.1 % (42.8-82.8); PLATELET COUNT 256 10^3/uL (134-434); RDW 17.2 % (11.6-15.6); WHITE BLOOD COUNT 10.5 K/mm3 (4.0-10.0)
[2021-11-26] MEDS ORDERED: ACETAMINOPHEN INJECTION 100 ML IVPB ONE (21:56)
[2021-11-26 22:14] LABS: CHLORIDE 106 mmol/L (98-107); SODIUM 141 mmol/L (136-145)
[2021-11-26 22:16] LABS: ALBUMIN 3.4 g/dl (3.4-5.0); ANION GAP 9 MMOL/L (8-16); CALCIUM 8.6 mg/dL (8.5-10.1); CO2 26 mmol/L (21-32); GLUCOSE,RANDOM 86 mg/dL (74-106)
[2021-11-26 22:19] LABS: CREATININE 0.7 mg/dL (0.55-1.3); SGPT/ALT 19 U/L (13-61)
[2021-11-26 22:20] LABS: INR 1.09 (0.83-1.09); PROTHROMBIN TIME (PATIENT) 12.6 SEC (9.7-13.0)
[2021-11-26 22:22] LABS: ACTIVATED PTT 32.9 SECONDS (25.2-36.5); ALK PHOS 86 U/L (45-117)
[2021-11-26 22:24] LABS: SGOT/AST 15 U/L (15-37)
[2021-11-26 22:42] LABS: BILIRUBIN,TOTAL 0.4 mg/dL (0.2-1); TOT PROT 7.2 g/dl (6.4-8.2)
[2021-11-27] MEDS ORDERED: ALBUTEROL SO4 2.5/IPRATROPIUM 0.5 INH SOL 3 ML VIAL.NEB. NEB ONE ×4 (04:41→16:08)
[2021-11-27] MEDS: ALBUTEROL SO4 2.5/IPRATROPIUM 0.5 INH SOL 3 ML VIAL.NEB. NEB SCH ×6 (05:22→19:58)
[2021-11-27] MEDS ORDERED: PATIENT'S OWN MEDICATION (NON-FORMULARY) (Rizatriptan Benzoate [Rizatriptan] 10 MG Tablet) PO PRN (05:52)
[2021-11-27 08:37] LABS: URINE APPEARANCE CLEAR; URINE BILIRUBIN NEGATIVE (NEGATIVE); URINE COLOR YELLOW; URINE GLUCOSE (UA) NEGATIVE (NEGATIVE); URINE KETONE TRACE (NEGATIVE); URINE PROTEIN NEGATIVE (NEGATIVE); URINE UROBILINOGEN 0.2 mg/dL (0.2-1.0)
[2021-11-27 08:38] LABS: EPI CELLS 10 /uL (0-25.1); HYALINE CASTS 1 /uL (0-3.1); URINE BACTERIA 619 /uL (0-1359); URINE LEUK ESTERASE NEGATIVE (NEGATIVE); URINE NITRITE NEGATIVE (NEGATIVE); URINE RBC 9 /uL (0-23.9); URINE WBC 130 /uL (0-25.8)
[2021-11-27] MEDS ORDERED: TOPIRAMATE 25 MG TABLET ONE (09:29)
[2021-11-27] MEDS ORDERED: LORATADINE 10 MG TABLET ONE (09:30)
[2021-11-27] MEDS ORDERED: ESCITALOPRAM OXALATE 10 MG TABLET ONE (09:30)
[2021-11-27] MEDS ORDERED: ENOXAPARIN NA (PORCINE) 40 MG/0.4 ML DISP.SYRIN SQ ONE (09:30)
[2021-11-27] MEDS: LORATADINE 10 MG TABLET PO SCH (09:38)
[2021-11-27] MEDS: TOPIRAMATE 25 MG TABLET PO SCH (09:39)
[2021-11-27] MEDS: ENOXAPARIN NA (PORCINE) 40 MG/0.4 ML DISP.SYRIN SQ SCH (09:39)
[2021-11-27] MEDS: ESCITALOPRAM OXALATE 10 MG TABLET PO SCH (09:39)
[2021-11-27] MEDS: FLUTICASONE PROP 0.05% 16 GM NASAL SPRAY NS SCH ×2 (10:30→21:02)
[2021-11-27] MEDS: MAG HYDROX/ALH/SMC/DPHA/LIDO 240 ML MOUTHWASH MM SCH ×2 (12:02→19:16)
[2021-11-27] MEDS: NYSTATIN 500,000 UNITS/5 ML SUSPENSION PO SCH ×2 (12:02→19:16)
[2021-11-27 12:08] LABS: BASO % 0.3 % (0-2.0); EOS % 0.8 % (0-4.5); HEMATOCRIT 37.2 % (32.4-45.2); HEMOGLOBIN 12.6 GM/dL (10.7-15.3); MCH 27.7 pg (25.7-33.7); MCHC 33.8 g/dl (32.0-36.0); MEAN CELL VOLUME 81.8 fl (80-96); MEAN PLT VOLUME 8.2 fl (7.5-11.1); MONO % 7.3 % (3.8-10.2); NEUT % 84.6 % (42.8-82.8); PLATELET COUNT 219 10^3/uL (134-434); RBC 4.55 M/mm3 (3.60-5.2); RDW 16.9 % (11.6-15.6); WHITE BLOOD COUNT 7.7 K/mm3 (4.0-10.0)
[2021-11-27 12:26] LABS: BLOOD UREA NITROGEN 8.2 mg/dL (7-18); CALCIUM 8.2 mg/dL (8.5-10.1); MAGNESIUM 2.2 mg/dL (1.8-2.4)
[2021-11-27 12:29] LABS: CREATININE 0.6 mg/dL (0.55-1.3); PHOSPHOROUS 3.2 mg/dL (2.5-4.9)
[2021-11-27 12:31] LABS: BILIRUBIN,TOTAL 0.2 mg/dL (0.2-1); TOT PROT 6.3 g/dl (6.4-8.2)
[2021-11-27] MEDS: MELATONIN 5 MG TABLETS PO SCH (21:02)
[2021-11-27] MEDS: MOMETASONE FUROATE 110 MCG/IH INHALER IH SCH (21:02)
[2021-11-27] MEDS: MONTELUKAST NA 10 MG TABLET PO SCH (21:02)
[2021-11-27] MEDS: TOPIRAMATE 100 MG TABLET PO SCH (21:02)
[2021-11-27 23:57] VITALS: BMI 26.9
[2021-11-28] MEDS: NYSTATIN 500,000 UNITS/5 ML SUSPENSION PO SCH ×4 (00:13→17:43)
[2021-11-28] MEDS: MAG HYDROX/ALH/SMC/DPHA/LIDO 240 ML MOUTHWASH MM SCH ×4 (00:13→17:43)
[2021-11-28] MEDS: ALBUTEROL SO4 2.5/IPRATROPIUM 0.5 INH SOL 3 ML VIAL.NEB. NEB SCH ×4 (08:00→20:24)
[2021-11-28] MEDS: ESCITALOPRAM OXALATE 10 MG TABLET PO SCH (09:51)
[2021-11-28] MEDS: TOPIRAMATE 25 MG TABLET PO SCH (09:51)
[2021-11-28] MEDS: ENOXAPARIN NA (PORCINE) 40 MG/0.4 ML DISP.SYRIN SQ SCH (09:51)
[2021-11-28] MEDS: LORATADINE 10 MG TABLET PO SCH (09:51)
[2021-11-28] MEDS: FLUTICASONE PROP 0.05% 16 GM NASAL SPRAY NS SCH (09:51)
[2021-11-28 11:16] LABS: BASO % 0.3 % (0-2.0); HEMATOCRIT 36.9 % (32.4-45.2); HEMOGLOBIN 12.6 GM/dL (10.7-15.3); LYMPH % 10.5 % (8-40); MCH 27.9 pg (25.7-33.7); MCHC 34.1 g/dl (32.0-36.0); MEAN CELL VOLUME 81.8 fl (80-96); MEAN PLT VOLUME 8.2 fl (7.5-11.1); NEUT % 82.2 % (42.8-82.8); PLATELET COUNT 254 10^3/uL (134-434); RBC 4.51 M/mm3 (3.60-5.2); RDW 16.7 % (11.6-15.6); WHITE BLOOD COUNT 7.4 K/mm3 (4.0-10.0)
[2021-11-28 11:43] LABS: CALCIUM 8.6 mg/dL (8.5-10.1)
[2021-11-28 11:44] LABS: ALBUMIN 3.2 g/dl (3.4-5.0); BLOOD UREA NITROGEN 9.4 mg/dL (7-18); MAGNESIUM 2.2 mg/dL (1.8-2.4)
[2021-11-28 11:47] LABS: CREATININE 0.9 mg/dL (0.55-1.3)
[2021-11-28 11:48] LABS: BILIRUBIN,TOTAL 0.3 mg/dL (0.2-1); TOT PROT 6.5 g/dl (6.4-8.2)
[2021-11-29] MEDS: TOPIRAMATE 100 MG TABLET PO SCH ×2 (00:02→22:44)
[2021-11-29] MEDS: MONTELUKAST NA 10 MG TABLET PO SCH ×2 (00:02→22:44)
[2021-11-29] MEDS: MELATONIN 5 MG TABLETS PO SCH ×2 (00:03→22:43)
[2021-11-29] MEDS: FLUTICASONE PROP 0.05% 16 GM NASAL SPRAY NS SCH ×3 (00:03→22:44)
[2021-11-29] MEDS: MAG HYDROX/ALH/SMC/DPHA/LIDO 240 ML MOUTHWASH MM SCH ×4 (00:03→17:51)
[2021-11-29] MEDS: NYSTATIN 500,000 UNITS/5 ML SUSPENSION PO SCH ×4 (00:03→17:51)
[2021-11-29] MEDS: MOMETASONE FUROATE 110 MCG/IH INHALER IH SCH ×2 (00:03→22:44)
[2021-11-29] MEDS: ALBUTEROL SO4 2.5/IPRATROPIUM 0.5 INH SOL 3 ML VIAL.NEB. NEB SCH ×4 (08:25→21:28)
[2021-11-29 09:52] LABS: BASO % 0.6 % (0-2.0); EOS % 2.8 % (0-4.5); HEMATOCRIT 37.8 % (32.4-45.2); HEMOGLOBIN 12.8 GM/dL (10.7-15.3); LYMPH % 13.9 % (8-40); MCH 28.1 pg (25.7-33.7); MCHC 33.9 g/dl (32.0-36.0); MEAN CELL VOLUME 82.9 fl (80-96); MEAN PLT VOLUME 8.7 fl (7.5-11.1); MONO % 7.2 % (3.8-10.2); NEUT % 75.5 % (42.8-82.8); PLATELET COUNT 256 10^3/uL (134-434); RBC 4.56 M/mm3 (3.60-5.2); RDW 17.4 % (11.6-15.6); WHITE BLOOD COUNT 6.9 K/mm3 (4.0-10.0)
[2021-11-29] MEDS ORDERED: POLYETHYLENE GLYCOL 3350 119 GM BTL PO SCH (10:00)
[2021-11-29 10:18] LABS: ALBUMIN 3.3 g/dl (3.4-5.0); CALCIUM 8.6 mg/dL (8.5-10.1); MAGNESIUM 2.3 mg/dL (1.8-2.4)
[2021-11-29 10:19] LABS: BLOOD UREA NITROGEN 10.3 mg/dL (7-18)
[2021-11-29 10:21] LABS: CREATININE 0.7 mg/dL (0.55-1.3)
[2021-11-29 10:23] LABS: BILIRUBIN,TOTAL 0.3 mg/dL (0.2-1); TOT PROT 6.5 g/dl (6.4-8.2)
[2021-11-29] MEDS: TOPIRAMATE 25 MG TABLET PO SCH (11:04)
[2021-11-29] MEDS: ENOXAPARIN NA (PORCINE) 40 MG/0.4 ML DISP.SYRIN SQ SCH (11:04)
[2021-11-29] MEDS: LORATADINE 10 MG TABLET PO SCH (11:04)
[2021-11-29] MEDS: ESCITALOPRAM OXALATE 10 MG TABLET PO SCH (11:04)
[2021-11-29] MEDS ORDERED: FLUCONAZOLE 100 MG TABLET (UD) PO ONE (13:35)
[2021-11-29] MEDS: NYSTATIN 100,000 UNIT/GM TOPICAL CREAM 15 GM TUBE TP SCH (17:51)
[2021-11-29] MEDS ORDERED: DAPTOMYCIN 400 MG in SODIUM CHLORIDE 50 ML IVPB ONE (18:00)
[2021-11-29] MEDS: POLYETHYLENE GLYCOL (HEALTHYLAX) 3350 17 GM PACKET PO SCH (22:44)
[2021-11-30] MEDS: NYSTATIN 500,000 UNITS/5 ML SUSPENSION PO SCH ×4 (00:10→19:19)
[2021-11-30] MEDS: MAG HYDROX/ALH/SMC/DPHA/LIDO 240 ML MOUTHWASH MM SCH ×4 (00:11→19:19)
[2021-11-30] MEDS: NYSTATIN 100,000 UNIT/GM TOPICAL CREAM 15 GM TUBE TP SCH ×4 (00:11→19:21)
[2021-11-30] MEDS: ALBUTEROL SO4 2.5/IPRATROPIUM 0.5 INH SOL 3 ML VIAL.NEB. NEB SCH ×4 (08:13→20:05)
[2021-11-30 09:30] LABS: BASO % 0.3 % (0-2.0); EOS % 2.8 % (0-4.5); HEMATOCRIT 37.9 % (32.4-45.2); LYMPH % 14.3 % (8-40); MCH 28.3 pg (25.7-33.7); MCHC 34.4 g/dl (32.0-36.0); MEAN CELL VOLUME 82.2 fl (80-96); MEAN PLT VOLUME 8.4 fl (7.5-11.1); MONO % 7.1 % (3.8-10.2); NEUT % 75.5 % (42.8-82.8); PLATELET COUNT 265 10^3/uL (134-434); RBC 4.61 M/mm3 (3.60-5.2); RDW 17.2 % (11.6-15.6); WHITE BLOOD COUNT 7.9 K/mm3 (4.0-10.0)
[2021-11-30 10:04] LABS: ALBUMIN 3.3 g/dl (3.4-5.0); BLOOD UREA NITROGEN 13.7 mg/dL (7-18); CALCIUM 8.8 mg/dL (8.5-10.1); MAGNESIUM 2.3 mg/dL (1.8-2.4)
[2021-11-30 10:07] LABS: CREATININE 0.8 mg/dL (0.55-1.3)
[2021-11-30 10:09] LABS: BILIRUBIN,TOTAL 0.3 mg/dL (0.2-1); TOT PROT 6.8 g/dl (6.4-8.2)
[2021-11-30] MEDS: TOPIRAMATE 25 MG TABLET PO SCH (12:39)
[2021-11-30] MEDS: ENOXAPARIN NA (PORCINE) 40 MG/0.4 ML DISP.SYRIN SQ SCH (12:39)
[2021-11-30] MEDS: POLYETHYLENE GLYCOL (HEALTHYLAX) 3350 17 GM PACKET PO SCH ×2 (12:39→21:32)
[2021-11-30] MEDS: LORATADINE 10 MG TABLET PO SCH (12:40)
[2021-11-30] MEDS: ESCITALOPRAM OXALATE 10 MG TABLET PO SCH (12:40)
[2021-11-30] MEDS: FLUTICASONE PROP 0.05% 16 GM NASAL SPRAY NS SCH ×2 (12:40→21:33)
[2021-11-30] MEDS: levoFLOXacin 750 MG TABLET PO SCH (14:15)
[2021-11-30] MEDS: DAPTOMYCIN 400 MG in SODIUM CHLORIDE 50 ML IVPB SCH (14:15)
[2021-11-30] MEDS: TOPIRAMATE 100 MG TABLET PO SCH (21:32)
[2021-11-30] MEDS: MELATONIN 5 MG TABLETS PO SCH (21:32)
[2021-11-30] MEDS: MONTELUKAST NA 10 MG TABLET PO SCH (21:32)
[2021-11-30] MEDS: MOMETASONE FUROATE 110 MCG/IH INHALER IH SCH (21:34)
[2021-12-01] MEDS: NYSTATIN 500,000 UNITS/5 ML SUSPENSION PO SCH ×4 (00:09→18:10)
[2021-12-01] MEDS: MAG HYDROX/ALH/SMC/DPHA/LIDO 240 ML MOUTHWASH MM SCH ×4 (00:09→18:10)
[2021-12-01] MEDS: NYSTATIN 100,000 UNIT/GM TOPICAL CREAM 15 GM TUBE TP SCH ×4 (00:10→18:10)
[2021-12-01] MEDS: levoFLOXacin 750 MG TABLET PO SCH (06:24)
[2021-12-01] MEDS: ALBUTEROL SO4 2.5/IPRATROPIUM 0.5 INH SOL 3 ML VIAL.NEB. NEB SCH ×4 (08:50→20:26)
[2021-12-01] MEDS: ESCITALOPRAM OXALATE 10 MG TABLET PO SCH (11:07)
[2021-12-01] MEDS: TOPIRAMATE 25 MG TABLET PO SCH (11:07)
[2021-12-01] MEDS: ENOXAPARIN NA (PORCINE) 40 MG/0.4 ML DISP.SYRIN SQ SCH (11:07)
[2021-12-01] MEDS: DAPTOMYCIN 400 MG in SODIUM CHLORIDE 50 ML IVPB SCH (11:07)
[2021-12-01] MEDS: LORATADINE 10 MG TABLET PO SCH (11:08)
[2021-12-01] MEDS: POLYETHYLENE GLYCOL (HEALTHYLAX) 3350 17 GM PACKET PO SCH ×2 (11:08→22:21)
[2021-12-01] MEDS: FLUTICASONE PROP 0.05% 16 GM NASAL SPRAY NS SCH ×2 (11:08→22:00)
[2021-12-01 13:12] LABS: BASO % 0.5 % (0-2.0); HEMATOCRIT 37.4 % (32.4-45.2); LYMPH % 13.3 % (8-40); MCH 28.4 pg (25.7-33.7); MCHC 34.7 g/dl (32.0-36.0); MEAN CELL VOLUME 81.9 fl (80-96); MEAN PLT VOLUME 8.3 fl (7.5-11.1); MONO % 7.7 % (3.8-10.2); NEUT % 75.5 % (42.8-82.8); PLATELET COUNT 276 10^3/uL (134-434); RBC 4.56 M/mm3 (3.60-5.2); RDW 17.3 % (11.6-15.6); WHITE BLOOD COUNT 7.2 K/mm3 (4.0-10.0)
[2021-12-01 13:37] LABS: ALBUMIN 3.4 g/dl (3.4-5.0)
[2021-12-01 13:38] LABS: BLOOD UREA NITROGEN 10.7 mg/dL (7-18); CALCIUM 8.8 mg/dL (8.5-10.1); MAGNESIUM 2.4 mg/dL (1.8-2.4)
[2021-12-01 13:41] LABS: CREATININE 0.7 mg/dL (0.55-1.3)
[2021-12-01 13:43] LABS: BILIRUBIN,TOTAL 0.3 mg/dL (0.2-1); TOT PROT 6.6 g/dl (6.4-8.2)
[2021-12-01] MEDS: MOMETASONE FUROATE 110 MCG/IH INHALER IH SCH (22:00)
[2021-12-01] MEDS: TOPIRAMATE 100 MG TABLET PO SCH (22:21)
[2021-12-01] MEDS: MONTELUKAST NA 10 MG TABLET PO SCH (22:21)
[2021-12-01] MEDS: MELATONIN 5 MG TABLETS PO SCH (22:21)
[2021-12-02] MEDS: NYSTATIN 500,000 UNITS/5 ML SUSPENSION PO SCH ×4 (00:01→18:39)
[2021-12-02] MEDS: NYSTATIN 100,000 UNIT/GM TOPICAL CREAM 15 GM TUBE TP SCH ×4 (04:00→18:39)
[2021-12-02] MEDS: MAG HYDROX/ALH/SMC/DPHA/LIDO 240 ML MOUTHWASH MM SCH ×4 (05:46→18:39)
[2021-12-02] MEDS: levoFLOXacin 750 MG TABLET PO SCH (05:46)
[2021-12-02 10:00] LABS: BASO % 0.6 % (0-2.0); EOS % 3.7 % (0-4.5); HEMOGLOBIN 13.3 GM/dL (10.7-15.3); LYMPH % 13.2 % (8-40); MCH 28.8 pg (25.7-33.7); MCHC 34.9 g/dl (32.0-36.0); MEAN CELL VOLUME 82.4 fl (80-96); MEAN PLT VOLUME 8.2 fl (7.5-11.1); MONO % 5.7 % (3.8-10.2); NEUT % 76.8 % (42.8-82.8); PLATELET COUNT 266 10^3/uL (134-434); RBC 4.61 M/mm3 (3.60-5.2); WHITE BLOOD COUNT 6.8 K/mm3 (4.0-10.0)
[2021-12-02 10:30] LABS: ALBUMIN 3.5 g/dl (3.4-5.0); BLOOD UREA NITROGEN 11.9 mg/dL (7-18); CALCIUM 8.8 mg/dL (8.5-10.1); MAGNESIUM 2.5 mg/dL (1.8-2.4)
[2021-12-02 10:33] LABS: CREATININE 0.7 mg/dL (0.55-1.3)
[2021-12-02 10:35] LABS: BILIRUBIN,TOTAL 0.3 mg/dL (0.2-1); TOT PROT 6.9 g/dl (6.4-8.2)
[2021-12-02] MEDS: ENOXAPARIN NA (PORCINE) 40 MG/0.4 ML DISP.SYRIN SQ SCH (10:52)
[2021-12-02] MEDS: LORATADINE 10 MG TABLET PO SCH (10:52)
[2021-12-02] MEDS: TOPIRAMATE 25 MG TABLET PO SCH (10:52)
[2021-12-02] MEDS: ESCITALOPRAM OXALATE 10 MG TABLET PO SCH (10:52)
[2021-12-02] MEDS: POLYETHYLENE GLYCOL (HEALTHYLAX) 3350 17 GM PACKET PO SCH ×2 (10:53→21:37)
[2021-12-02] MEDS: FLUTICASONE PROP 0.05% 16 GM NASAL SPRAY NS SCH ×2 (10:53→22:09)
[2021-12-02] MEDS: DAPTOMYCIN 400 MG in SODIUM CHLORIDE 50 ML IVPB SCH (13:47)
[2021-12-02] MEDS: SENNOSIDES 8.6MG TABLET (FP) PO PRN (21:37)
[2021-12-02] MEDS: MELATONIN 5 MG TABLETS PO SCH (21:38)
[2021-12-02] MEDS: DOCUSATE SODIUM 100 MG CAPSULE (FP) PO SCH (21:38)
[2021-12-02] MEDS: MONTELUKAST NA 10 MG TABLET PO SCH (21:38)
[2021-12-02] MEDS: TOPIRAMATE 100 MG TABLET PO SCH (21:38)
[2021-12-02] MEDS: MOMETASONE FUROATE 110 MCG/IH INHALER IH SCH (22:09)
[2021-12-03] MEDS: NYSTATIN 500,000 UNITS/5 ML SUSPENSION PO SCH ×4 (01:05→18:53)
[2021-12-03] MEDS: MAG HYDROX/ALH/SMC/DPHA/LIDO 240 ML MOUTHWASH MM SCH ×4 (01:05→18:53)
[2021-12-03] MEDS: NYSTATIN 100,000 UNIT/GM TOPICAL CREAM 15 GM TUBE TP SCH ×4 (06:15→18:53)
[2021-12-03] MEDS: levoFLOXacin 750 MG TABLET PO SCH (06:46)
[2021-12-03 09:51] LABS: BASO % 0.6 % (0-2.0); EOS % 4.8 % (0-4.5); HEMATOCRIT 37.5 % (32.4-45.2); HEMOGLOBIN 13.1 GM/dL (10.7-15.3); MCH 28.5 pg (25.7-33.7); MEAN CELL VOLUME 81.5 fl (80-96); MEAN PLT VOLUME 8.1 fl (7.5-11.1); MONO % 5.2 % (3.8-10.2); NEUT % 75.4 % (42.8-82.8); PLATELET COUNT 267 10^3/uL (134-434); RDW 17.2 % (11.6-15.6); WHITE BLOOD COUNT 6.6 K/mm3 (4.0-10.0)
[2021-12-03 10:22] LABS: ALBUMIN 3.4 g/dl (3.4-5.0); BLOOD UREA NITROGEN 10.5 mg/dL (7-18); CALCIUM 8.7 mg/dL (8.5-10.1); MAGNESIUM 2.3 mg/dL (1.8-2.4)
[2021-12-03 10:25] LABS: CREATININE 0.9 mg/dL (0.55-1.3)
[2021-12-03 10:27] LABS: BILIRUBIN,TOTAL 0.5 mg/dL (0.2-1); TOT PROT 6.6 g/dl (6.4-8.2)
[2021-12-03] MEDS: ENOXAPARIN NA (PORCINE) 40 MG/0.4 ML DISP.SYRIN SQ SCH (10:58)
[2021-12-03] MEDS: LORATADINE 10 MG TABLET PO SCH (10:58)
[2021-12-03] MEDS: TOPIRAMATE 25 MG TABLET PO SCH (10:58)
[2021-12-03] MEDS: DAPTOMYCIN 400 MG in SODIUM CHLORIDE 50 ML IVPB SCH (10:59)
[2021-12-03] MEDS: FLUTICASONE PROP 0.05% 16 GM NASAL SPRAY NS SCH ×2 (10:59→23:12)
[2021-12-03] MEDS: POLYETHYLENE GLYCOL (HEALTHYLAX) 3350 17 GM PACKET PO SCH ×2 (10:59→23:04)
[2021-12-03] MEDS: ESCITALOPRAM OXALATE 10 MG TABLET PO SCH (11:05)
[2021-12-03] MEDS: ALBUTEROL SO4 0.083% IH SOL 2.5 MG/3 ML VIAL.NEB. NEB PRN ×2 (16:15→20:32)
[2021-12-03] MEDS: guaiFENesin 200 MG/10 ML 10 ML UNIT-DOSE CUPS PO PRN (16:37)
[2021-12-03] MEDS: MELATONIN 5 MG TABLETS PO SCH (23:03)
[2021-12-03] MEDS: DOCUSATE SODIUM 100 MG CAPSULE (FP) PO SCH (23:03)
[2021-12-03] MEDS: MONTELUKAST NA 10 MG TABLET PO SCH (23:04)
[2021-12-03] MEDS: TOPIRAMATE 100 MG TABLET PO SCH (23:04)
[2021-12-04] MEDS: NYSTATIN 500,000 UNITS/5 ML SUSPENSION PO SCH ×4 (00:49→17:59)
[2021-12-04] MEDS: NYSTATIN 100,000 UNIT/GM TOPICAL CREAM 15 GM TUBE TP SCH ×4 (00:50→17:59)
[2021-12-04] MEDS: MAG HYDROX/ALH/SMC/DPHA/LIDO 240 ML MOUTHWASH MM SCH ×4 (01:57→17:59)
[2021-12-04] MEDS: levoFLOXacin 750 MG TABLET PO SCH (06:54)
[2021-12-04] MEDS: POLYETHYLENE GLYCOL (HEALTHYLAX) 3350 17 GM PACKET PO SCH ×2 (10:14→23:15)
[2021-12-04] MEDS: LORATADINE 10 MG TABLET PO SCH (10:14)
[2021-12-04] MEDS: ESCITALOPRAM OXALATE 10 MG TABLET PO SCH (10:15)
[2021-12-04] MEDS: TOPIRAMATE 25 MG TABLET PO SCH (10:15)
[2021-12-04] MEDS: FLUTICASONE PROP 0.05% 16 GM NASAL SPRAY NS SCH ×2 (10:15→23:09)
[2021-12-04] MEDS: ENOXAPARIN NA (PORCINE) 40 MG/0.4 ML DISP.SYRIN SQ SCH (10:16)
[2021-12-04 11:07] LABS: BASO % 0.5 % (0-2.0); HEMOGLOBIN 13.1 GM/dL (10.7-15.3); LYMPH % 7.9 % (8-40); MCH 28.2 pg (25.7-33.7); MCHC 34.4 g/dl (32.0-36.0); MEAN PLT VOLUME 8.5 fl (7.5-11.1); MONO % 7.2 % (3.8-10.2); NEUT % 81.4 % (42.8-82.8); PLATELET COUNT 265 10^3/uL (134-434); RBC 4.63 M/mm3 (3.60-5.2); RDW 17.2 % (11.6-15.6); WHITE BLOOD COUNT 5.9 K/mm3 (4.0-10.0)
[2021-12-04 11:47] LABS: CALCIUM 8.9 mg/dL (8.5-10.1)
[2021-12-04 11:48] LABS: BLOOD UREA NITROGEN 11.6 mg/dL (7-18); MAGNESIUM 2.5 mg/dL (1.8-2.4)
[2021-12-04 11:49] LABS: ALBUMIN 3.5 g/dl (3.4-5.0)
[2021-12-04 11:51] LABS: CREATININE 0.8 mg/dL (0.55-1.3)
[2021-12-04 11:53] LABS: BILIRUBIN,TOTAL 0.4 mg/dL (0.2-1); TOT PROT 6.8 g/dl (6.4-8.2)
[2021-12-04] MEDS ORDERED: ALBUTEROL SO4 2.5/IPRATROPIUM 0.5 INH SOL 3 ML VIAL.NEB. NEB ONE (17:43)
[2021-12-04] MEDS: guaiFENesin 200 MG/10 ML 10 ML UNIT-DOSE CUPS PO PRN (18:07)
[2021-12-04] MEDS: ALBUTEROL SO4 0.083% IH SOL 2.5 MG/3 ML VIAL.NEB. NEB PRN (19:15)
[2021-12-04] MEDS: DOCUSATE SODIUM 100 MG CAPSULE (FP) PO SCH (23:07)
[2021-12-04] MEDS: MONTELUKAST NA 10 MG TABLET PO SCH (23:07)
[2021-12-04] MEDS: TOPIRAMATE 100 MG TABLET PO SCH (23:07)
[2021-12-04] MEDS: MELATONIN 5 MG TABLETS PO SCH (23:07)
[2021-12-04] MEDS: MOMETASONE FUROATE 110 MCG/IH INHALER IH SCH (23:09)
[2021-12-05] MEDS: guaiFENesin 200 MG/10 ML 10 ML UNIT-DOSE CUPS PO PRN ×2 (02:21→10:30)
[2021-12-05] MEDS: MAG HYDROX/ALH/SMC/DPHA/LIDO 240 ML MOUTHWASH MM SCH ×4 (02:22→18:11)
[2021-12-05] MEDS: NYSTATIN 100,000 UNIT/GM TOPICAL CREAM 15 GM TUBE TP SCH ×4 (02:23→18:11)
[2021-12-05] MEDS: NYSTATIN 500,000 UNITS/5 ML SUSPENSION PO SCH ×4 (02:25→18:11)
[2021-12-05] MEDS: levoFLOXacin 750 MG TABLET PO SCH (06:37)
[2021-12-05] MEDS: LORATADINE 10 MG TABLET PO SCH (10:30)
[2021-12-05] MEDS: TOPIRAMATE 25 MG TABLET PO SCH (10:30)
[2021-12-05] MEDS: ESCITALOPRAM OXALATE 10 MG TABLET PO SCH (10:30)
[2021-12-05] MEDS: POLYETHYLENE GLYCOL (HEALTHYLAX) 3350 17 GM PACKET PO SCH ×2 (10:30→22:57)
[2021-12-05] MEDS: ENOXAPARIN NA (PORCINE) 40 MG/0.4 ML DISP.SYRIN SQ SCH (10:30)
[2021-12-05] MEDS: FLUTICASONE PROP 0.05% 16 GM NASAL SPRAY NS SCH ×2 (10:31→22:57)
[2021-12-05] MEDS: ALBUTEROL SO4 0.083% IH SOL 2.5 MG/3 ML VIAL.NEB. NEB PRN ×2 (11:07→15:52)
[2021-12-05] MEDS ORDERED: SODIUM CHLORIDE NASAL SPRAY 44 ML BOTTLE NS PRN (11:28)
[2021-12-05] MEDS: guaiFENesin 200 MG/10 ML 10 ML UNIT-DOSE CUPS PO SCH ×3 (11:58→22:57)
[2021-12-05] MEDS ORDERED: BISACODYL 10 MG SUPP.RECT PR ONE (16:27)
[2021-12-05] MEDS: PANTOPRAZOLE 40 MG TABLET PO SCH (16:39)
[2021-12-05] MEDS: methylPREDNISolone NA SUCC 40 MG/1 ML VIAL IVPUSH SCH ×2 (16:39→19:03)
[2021-12-05] MEDS: TOPIRAMATE 100 MG TABLET PO SCH (22:57)
[2021-12-05] MEDS: SENNOSIDES 8.6MG TABLET (FP) PO PRN (22:57)
[2021-12-05] MEDS: MELATONIN 5 MG TABLETS PO SCH (22:57)
[2021-12-05] MEDS: DOCUSATE SODIUM 100 MG CAPSULE (FP) PO SCH (22:57)
[2021-12-05] MEDS: MOMETASONE FUROATE 110 MCG/IH INHALER IH SCH (22:57)
[2021-12-05] MEDS: MONTELUKAST NA 10 MG TABLET PO SCH (22:57)
[2021-12-06] MEDS: NYSTATIN 500,000 UNITS/5 ML SUSPENSION PO SCH ×4 (01:43→17:35)
[2021-12-06] MEDS: guaiFENesin 200 MG/10 ML 10 ML UNIT-DOSE CUPS PO SCH ×7 (01:43→23:04)
[2021-12-06] MEDS: NYSTATIN 100,000 UNIT/GM TOPICAL CREAM 15 GM TUBE TP SCH ×4 (01:43→17:35)
[2021-12-06] MEDS: methylPREDNISolone NA SUCC 40 MG/1 ML VIAL IVPUSH SCH ×3 (01:44→17:36)
[2021-12-06] MEDS: MAG HYDROX/ALH/SMC/DPHA/LIDO 240 ML MOUTHWASH MM SCH ×4 (01:45→17:36)
[2021-12-06] MEDS: levoFLOXacin 750 MG TABLET PO SCH (06:30)
[2021-12-06] MEDS: ALBUTEROL SO4 0.083% IH SOL 2.5 MG/3 ML VIAL.NEB. NEB PRN (07:25)
[2021-12-06 10:54] LABS: HEMATOCRIT 37.4 % (32.4-45.2); HEMOGLOBIN 12.9 GM/dL (10.7-15.3); MCH 28.2 pg (25.7-33.7); MCHC 34.6 g/dl (32.0-36.0); MEAN CELL VOLUME 81.7 fl (80-96); MEAN PLT VOLUME 8.9 fl (7.5-11.1); PLATELET COUNT 246 10^3/uL (134-434); RBC 4.57 M/mm3 (3.60-5.2); RDW 17.5 % (11.6-15.6); WHITE BLOOD COUNT 8.7 K/mm3 (4.0-10.0)
[2021-12-06 11:30] LABS: ALBUMIN 3.5 g/dl (3.4-5.0); CALCIUM 8.2 mg/dL (8.5-10.1)
[2021-12-06 11:31] LABS: BLOOD UREA NITROGEN 9.4 mg/dL (7-18); MAGNESIUM 2.1 mg/dL (1.8-2.4)
[2021-12-06 11:33] LABS: CREATININE 0.8 mg/dL (0.55-1.3)
[2021-12-06 11:35] LABS: BILIRUBIN,TOTAL 0.5 mg/dL (0.2-1)
[2021-12-06] MEDS: POLYETHYLENE GLYCOL (HEALTHYLAX) 3350 17 GM PACKET PO SCH ×2 (12:21→23:05)
[2021-12-06] MEDS: ESCITALOPRAM OXALATE 10 MG TABLET PO SCH (12:21)
[2021-12-06] MEDS: TOPIRAMATE 25 MG TABLET PO SCH (12:21)
[2021-12-06] MEDS: PANTOPRAZOLE 40 MG TABLET PO SCH (12:21)
[2021-12-06] MEDS: LORATADINE 10 MG TABLET PO SCH (12:22)
[2021-12-06] MEDS: FLUTICASONE PROP 0.05% 16 GM NASAL SPRAY NS SCH ×2 (12:23→23:05)
[2021-12-06 13:47] LABS: ANISOCYTOSIS 2+; MACROCYTOSIS 0; TEAR DROP CELLS 1+
[2021-12-06] MEDS: ENOXAPARIN NA (PORCINE) 40 MG/0.4 ML DISP.SYRIN SQ SCH (17:35)
[2021-12-06] MEDS: DOCUSATE SODIUM 100 MG CAPSULE (FP) PO SCH (23:04)
[2021-12-06] MEDS: SENNOSIDES 8.6MG TABLET (FP) PO PRN (23:05)
[2021-12-06] MEDS: MELATONIN 5 MG TABLETS PO SCH (23:05)
[2021-12-06] MEDS: TOPIRAMATE 100 MG TABLET PO SCH (23:05)
[2021-12-06] MEDS: MONTELUKAST NA 10 MG TABLET PO SCH (23:05)
[2021-12-06] MEDS: MOMETASONE FUROATE 110 MCG/IH INHALER IH SCH (23:05)
[2021-12-07] MEDS: MAG HYDROX/ALH/SMC/DPHA/LIDO 240 ML MOUTHWASH MM SCH ×4 (00:29→18:53)
[2021-12-07] MEDS: NYSTATIN 500,000 UNITS/5 ML SUSPENSION PO SCH ×4 (00:29→18:50)
[2021-12-07] MEDS: NYSTATIN 100,000 UNIT/GM TOPICAL CREAM 15 GM TUBE TP SCH ×4 (00:29→18:51)
[2021-12-07] MEDS: methylPREDNISolone NA SUCC 40 MG/1 ML VIAL IVPUSH SCH ×3 (02:05→18:50)
[2021-12-07] MEDS: guaiFENesin 200 MG/10 ML 10 ML UNIT-DOSE CUPS PO SCH ×6 (03:26→23:46)
[2021-12-07] MEDS: levoFLOXacin 750 MG TABLET PO SCH (07:04)
[2021-12-07] MEDS: LORATADINE 10 MG TABLET PO SCH (10:54)
[2021-12-07] MEDS: PANTOPRAZOLE 40 MG TABLET PO SCH (10:54)
[2021-12-07] MEDS: ESCITALOPRAM OXALATE 10 MG TABLET PO SCH (10:54)
[2021-12-07] MEDS: POLYETHYLENE GLYCOL (HEALTHYLAX) 3350 17 GM PACKET PO SCH ×2 (10:55→23:46)
[2021-12-07] MEDS: FLUTICASONE PROP 0.05% 16 GM NASAL SPRAY NS SCH (10:55)
[2021-12-07] MEDS: TOPIRAMATE 25 MG TABLET PO SCH (10:55)
[2021-12-07] MEDS: ENOXAPARIN NA (PORCINE) 40 MG/0.4 ML DISP.SYRIN SQ SCH (10:55)
[2021-12-07 11:09] LABS: BASO % 0.1 % (0-2.0); HEMATOCRIT 38.2 % (32.4-45.2); LYMPH % 4.5 % (8-40); MCH 27.9 pg (25.7-33.7); MEAN CELL VOLUME 82.2 fl (80-96); MEAN PLT VOLUME 8.9 fl (7.5-11.1); MONO % 6.5 % (3.8-10.2); NEUT % 88.9 % (42.8-82.8); PLATELET COUNT 259 10^3/uL (134-434); RBC 4.65 M/mm3 (3.60-5.2); RDW 17.4 % (11.6-15.6)
[2021-12-07 11:16] LABS: CALCIUM 8.4 mg/dL (8.5-10.1)
[2021-12-07 11:17] LABS: ALBUMIN 3.4 g/dl (3.4-5.0); BLOOD UREA NITROGEN 12.4 mg/dL (7-18); MAGNESIUM 2.2 mg/dL (1.8-2.4)
[2021-12-07 11:20] LABS: CREATININE 0.8 mg/dL (0.55-1.3)
[2021-12-07 11:21] LABS: BILIRUBIN,TOTAL 0.4 mg/dL (0.2-1)
[2021-12-07 11:22] LABS: TOT PROT 6.8 g/dl (6.4-8.2)
[2021-12-07] MEDS: DOCUSATE SODIUM 100 MG CAPSULE (FP) PO SCH (23:46)
[2021-12-07] MEDS: MELATONIN 5 MG TABLETS PO SCH (23:46)
[2021-12-07] MEDS: MONTELUKAST NA 10 MG TABLET PO SCH (23:46)
[2021-12-07] MEDS: TOPIRAMATE 100 MG TABLET PO SCH (23:46)
[2021-12-08] MEDS: MOMETASONE FUROATE 110 MCG/IH INHALER IH SCH ×2 (00:04→23:11)
[2021-12-08] MEDS: FLUTICASONE PROP 0.05% 16 GM NASAL SPRAY NS SCH ×3 (00:04→23:08)
[2021-12-08] MEDS: MAG HYDROX/ALH/SMC/DPHA/LIDO 240 ML MOUTHWASH MM SCH ×5 (00:19→23:08)
[2021-12-08] MEDS: NYSTATIN 100,000 UNIT/GM TOPICAL CREAM 15 GM TUBE TP SCH ×5 (00:19→23:09)
[2021-12-08] MEDS: NYSTATIN 500,000 UNITS/5 ML SUSPENSION PO SCH ×5 (00:19→23:10)
[2021-12-08] MEDS: methylPREDNISolone NA SUCC 40 MG/1 ML VIAL IVPUSH SCH ×3 (01:38→17:24)
[2021-12-08] MEDS: guaiFENesin 200 MG/10 ML 10 ML UNIT-DOSE CUPS PO SCH ×6 (02:57→23:09)
[2021-12-08] MEDS: levoFLOXacin 750 MG TABLET PO SCH (06:22)
[2021-12-08 08:30] LABS: BASO % 0.1 % (0-2.0); HEMATOCRIT 37.5 % (32.4-45.2); HEMOGLOBIN 12.9 GM/dL (10.7-15.3); LYMPH % 11.8 % (8-40); MCH 27.9 pg (25.7-33.7); MCHC 34.4 g/dl (32.0-36.0); MEAN CELL VOLUME 81.1 fl (80-96); MEAN PLT VOLUME 8.2 fl (7.5-11.1); MONO % 16.2 % (3.8-10.2); NEUT % 71.9 % (42.8-82.8); PLATELET COUNT 238 10^3/uL (134-434); RBC 4.63 M/mm3 (3.60-5.2); RDW 17.2 % (11.6-15.6); WHITE BLOOD COUNT 2.9 K/mm3 (4.0-10.0)
[2021-12-08 08:55] LABS: ALBUMIN 3.3 g/dl (3.4-5.0); BLOOD UREA NITROGEN 12.6 mg/dL (7-18)
[2021-12-08 08:57] LABS: CALCIUM 8.4 mg/dL (8.5-10.1); MAGNESIUM 2.3 mg/dL (1.8-2.4)
[2021-12-08 09:00] LABS: BILIRUBIN,TOTAL 0.5 mg/dL (0.2-1); CREATININE 0.7 mg/dL (0.55-1.3); TOT PROT 6.6 g/dl (6.4-8.2)
[2021-12-08] MEDS: PANTOPRAZOLE 40 MG TABLET PO SCH (10:58)
[2021-12-08] MEDS: TOPIRAMATE 25 MG TABLET PO SCH (10:58)
[2021-12-08] MEDS: ESCITALOPRAM OXALATE 10 MG TABLET PO SCH (10:58)
[2021-12-08] MEDS: LORATADINE 10 MG TABLET PO SCH (10:58)
[2021-12-08] MEDS: POLYETHYLENE GLYCOL (HEALTHYLAX) 3350 17 GM PACKET PO SCH ×2 (10:59→23:08)
[2021-12-08] MEDS: ENOXAPARIN NA (PORCINE) 40 MG/0.4 ML DISP.SYRIN SQ SCH (10:59)
[2021-12-08] MEDS: ALBUTEROL SO4 0.083% IH SOL 2.5 MG/3 ML VIAL.NEB. NEB PRN (18:55)
[2021-12-08] MEDS: MONTELUKAST NA 10 MG TABLET PO SCH (23:08)
[2021-12-08] MEDS: DOCUSATE SODIUM 100 MG CAPSULE (FP) PO SCH (23:08)
[2021-12-08] MEDS: MELATONIN 5 MG TABLETS PO SCH (23:08)
[2021-12-08] MEDS: TOPIRAMATE 100 MG TABLET PO SCH (23:08)
[2021-12-09] MEDS: methylPREDNISolone NA SUCC 40 MG/1 ML VIAL IVPUSH SCH ×3 (02:23→18:34)
[2021-12-09] MEDS: guaiFENesin 200 MG/10 ML 10 ML UNIT-DOSE CUPS PO SCH ×6 (02:31→23:12)
[2021-12-09] MEDS: MAG HYDROX/ALH/SMC/DPHA/LIDO 240 ML MOUTHWASH MM SCH ×4 (05:49→23:15)
[2021-12-09] MEDS: NYSTATIN 500,000 UNITS/5 ML SUSPENSION PO SCH ×4 (05:49→23:13)
[2021-12-09] MEDS: NYSTATIN 100,000 UNIT/GM TOPICAL CREAM 15 GM TUBE TP SCH ×4 (05:49→23:15)
[2021-12-09 08:55] LABS: BASO % 0.2 % (0-2.0); HEMATOCRIT 38.6 % (32.4-45.2); HEMOGLOBIN 13.2 GM/dL (10.7-15.3); MCH 27.8 pg (25.7-33.7); MCHC 34.3 g/dl (32.0-36.0); MEAN CELL VOLUME 81.2 fl (80-96); MEAN PLT VOLUME 8.2 fl (7.5-11.1); MONO % 13.5 % (3.8-10.2); NEUT % 70.3 % (42.8-82.8); PLATELET COUNT 271 10^3/uL (134-434); RBC 4.76 M/mm3 (3.60-5.2); RDW 17.7 % (11.6-15.6); WHITE BLOOD COUNT 3.5 K/mm3 (4.0-10.0)
[2021-12-09 09:11] LABS: ALBUMIN 3.3 g/dl (3.4-5.0); CALCIUM 8.3 mg/dL (8.5-10.1)
[2021-12-09 09:12] LABS: BLOOD UREA NITROGEN 16.4 mg/dL (7-18)
[2021-12-09 09:16] LABS: BILIRUBIN,TOTAL 0.3 mg/dL (0.2-1); CREATININE 0.8 mg/dL (0.55-1.3); TOT PROT 6.7 g/dl (6.4-8.2)
[2021-12-09] MEDS: TOPIRAMATE 25 MG TABLET PO SCH (09:34)
[2021-12-09] MEDS: ESCITALOPRAM OXALATE 10 MG TABLET PO SCH (09:34)
[2021-12-09] MEDS: LORATADINE 10 MG TABLET PO SCH (09:34)
[2021-12-09] MEDS: PANTOPRAZOLE 40 MG TABLET PO SCH (09:34)
[2021-12-09] MEDS: FLUTICASONE PROP 0.05% 16 GM NASAL SPRAY NS SCH ×2 (09:35→23:12)
[2021-12-09] MEDS: POLYETHYLENE GLYCOL (HEALTHYLAX) 3350 17 GM PACKET PO SCH ×2 (09:35→23:12)
[2021-12-09] MEDS: ENOXAPARIN NA (PORCINE) 40 MG/0.4 ML DISP.SYRIN SQ SCH (09:35)
[2021-12-09] MEDS: ALBUTEROL SO4 0.083% IH SOL 2.5 MG/3 ML VIAL.NEB. NEB SCH (20:00)
[2021-12-09] MEDS: TOPIRAMATE 100 MG TABLET PO SCH (23:11)
[2021-12-09] MEDS: MONTELUKAST NA 10 MG TABLET PO SCH (23:12)
[2021-12-09] MEDS: DOCUSATE SODIUM 100 MG CAPSULE (FP) PO SCH (23:12)
[2021-12-09] MEDS: MOMETASONE FUROATE 110 MCG/IH INHALER IH SCH (23:12)
[2021-12-09] MEDS: MELATONIN 5 MG TABLETS PO SCH (23:12)
[2021-12-10] MEDS: ALBUTEROL SO4 0.083% IH SOL 2.5 MG/3 ML VIAL.NEB. NEB SCH ×6 (00:18→20:00)
[2021-12-10] MEDS: methylPREDNISolone NA SUCC 40 MG/1 ML VIAL IVPUSH SCH ×3 (02:52→17:33)
[2021-12-10] MEDS: guaiFENesin 200 MG/10 ML 10 ML UNIT-DOSE CUPS PO SCH ×5 (02:53→20:39)
[2021-12-10] MEDS: NYSTATIN 100,000 UNIT/GM TOPICAL CREAM 15 GM TUBE TP SCH ×3 (06:49→17:34)
[2021-12-10] MEDS: MAG HYDROX/ALH/SMC/DPHA/LIDO 240 ML MOUTHWASH MM SCH ×3 (06:49→17:33)
[2021-12-10] MEDS: NYSTATIN 500,000 UNITS/5 ML SUSPENSION PO SCH ×3 (06:49→17:33)
[2021-12-10 09:47] LABS: BASO % 0.1 % (0-2.0); HEMATOCRIT 40.7 % (32.4-45.2); HEMOGLOBIN 13.8 GM/dL (10.7-15.3); LYMPH % 18.6 % (8-40); MCH 27.8 pg (25.7-33.7); MEAN CELL VOLUME 81.8 fl (80-96); MEAN PLT VOLUME 8.4 fl (7.5-11.1); MONO % 12.4 % (3.8-10.2); NEUT % 68.9 % (42.8-82.8); PLATELET COUNT 286 10^3/uL (134-434); RBC 4.97 M/mm3 (3.60-5.2); RDW 17.2 % (11.6-15.6)
[2021-12-10] MEDS: ENOXAPARIN NA (PORCINE) 40 MG/0.4 ML DISP.SYRIN SQ SCH (09:56)
[2021-12-10] MEDS: ESCITALOPRAM OXALATE 10 MG TABLET PO SCH (09:57)
[2021-12-10] MEDS: FLUTICASONE PROP 0.05% 16 GM NASAL SPRAY NS SCH ×2 (09:57→21:35)
[2021-12-10] MEDS: POLYETHYLENE GLYCOL (HEALTHYLAX) 3350 17 GM PACKET PO SCH ×2 (09:57→21:35)
[2021-12-10] MEDS: LORATADINE 10 MG TABLET PO SCH (09:57)
[2021-12-10] MEDS: PANTOPRAZOLE 40 MG TABLET PO SCH (09:58)
[2021-12-10] MEDS: TOPIRAMATE 25 MG TABLET PO SCH (10:05)
[2021-12-10 10:12] LABS: CALCIUM 8.6 mg/dL (8.5-10.1)
[2021-12-10 10:13] LABS: ALBUMIN 3.5 g/dl (3.4-5.0); BLOOD UREA NITROGEN 17.5 mg/dL (7-18)
[2021-12-10 10:16] LABS: CREATININE 0.7 mg/dL (0.55-1.3)
[2021-12-10 10:17] LABS: BILIRUBIN,TOTAL 0.3 mg/dL (0.2-1); TOT PROT 6.9 g/dl (6.4-8.2)
[2021-12-10] MEDS ORDERED: BISACODYL 10 MG SUPP.RECT PR ONE (19:42)
[2021-12-10] MEDS: MOMETASONE FUROATE 110 MCG/IH INHALER IH SCH (21:34)
[2021-12-10] MEDS: DOCUSATE SODIUM 100 MG CAPSULE (FP) PO SCH (21:34)
[2021-12-10] MEDS: TOPIRAMATE 100 MG TABLET PO SCH (21:35)
[2021-12-10] MEDS: MONTELUKAST NA 10 MG TABLET PO SCH (21:35)
[2021-12-10] MEDS: MELATONIN 5 MG TABLETS PO SCH (21:35)
[2021-12-11] MEDS: NYSTATIN 100,000 UNIT/GM TOPICAL CREAM 15 GM TUBE TP SCH ×4 (00:23→18:49)
[2021-12-11] MEDS: NYSTATIN 500,000 UNITS/5 ML SUSPENSION PO SCH ×4 (00:29→18:49)
[2021-12-11] MEDS: MAG HYDROX/ALH/SMC/DPHA/LIDO 240 ML MOUTHWASH MM SCH ×4 (00:29→18:49)
[2021-12-11] MEDS: guaiFENesin 200 MG/10 ML 10 ML UNIT-DOSE CUPS PO SCH ×7 (00:29→19:45)
[2021-12-11] MEDS: methylPREDNISolone NA SUCC 40 MG/1 ML VIAL IVPUSH SCH ×2 (01:38→10:05)
[2021-12-11] MEDS: ALBUTEROL SO4 0.083% IH SOL 2.5 MG/3 ML VIAL.NEB. NEB SCH ×7 (04:00→23:36)
[2021-12-11 09:32] LABS: HEMATOCRIT 37.7 % (32.4-45.2); HEMOGLOBIN 13.1 GM/dL (10.7-15.3); MCH 28.1 pg (25.7-33.7); MCHC 34.7 g/dl (32.0-36.0); MEAN CELL VOLUME 80.9 fl (80-96); MEAN PLT VOLUME 8.1 fl (7.5-11.1); PLATELET COUNT 329 10^3/uL (134-434); RBC 4.66 M/mm3 (3.60-5.2); RDW 17.4 % (11.6-15.6); WHITE BLOOD COUNT 6.9 K/mm3 (4.0-10.0)
[2021-12-11 10:00] LABS: ALBUMIN 3.3 g/dl (3.4-5.0); BLOOD UREA NITROGEN 14.7 mg/dL (7-18); CALCIUM 8.5 mg/dL (8.5-10.1)
[2021-12-11 10:03] LABS: CREATININE 0.7 mg/dL (0.55-1.3)
[2021-12-11 10:05] LABS: BILIRUBIN,TOTAL 0.5 mg/dL (0.2-1); TOT PROT 6.6 g/dl (6.4-8.2)
[2021-12-11] MEDS: ESCITALOPRAM OXALATE 10 MG TABLET PO SCH (10:05)
[2021-12-11] MEDS: PANTOPRAZOLE 40 MG TABLET PO SCH (10:05)
[2021-12-11] MEDS: TOPIRAMATE 25 MG TABLET PO SCH (10:05)
[2021-12-11] MEDS: ENOXAPARIN NA (PORCINE) 40 MG/0.4 ML DISP.SYRIN SQ SCH (10:05)
[2021-12-11] MEDS: LORATADINE 10 MG TABLET PO SCH (10:05)
[2021-12-11] MEDS: FLUTICASONE PROP 0.05% 16 GM NASAL SPRAY NS SCH ×2 (10:06→21:38)
[2021-12-11] MEDS: POLYETHYLENE GLYCOL (HEALTHYLAX) 3350 17 GM PACKET PO SCH (10:06)
[2021-12-11 10:27] LABS: ANISOCYTOSIS 0; HELMET CELLS 0; HOWELL-JOLLY BODIES 0; MACROCYTOSIS 0; OVALOCYTE 0; ROULEAU 0; SICKELED CELLS 0; TARGET CELLS 0; TEAR DROP CELLS 0; TOXIC GRANULATION 0
[2021-12-11] MEDS: MOMETASONE FUROATE 110 MCG/IH INHALER IH SCH (21:37)
[2021-12-11] MEDS: MELATONIN 5 MG TABLETS PO SCH (21:38)
[2021-12-11] MEDS: DOCUSATE SODIUM 100 MG CAPSULE (FP) PO SCH (21:38)
[2021-12-11] MEDS: MONTELUKAST NA 10 MG TABLET PO SCH (21:38)
[2021-12-11] MEDS: TOPIRAMATE 100 MG TABLET PO SCH (21:39)
[2021-12-11] MEDS: SENNOSIDES 8.6MG TABLET (FP) PO PRN (21:39)
[2021-12-11] MEDS ORDERED: methylPREDNISolone NA SUCC 40 MG/1 ML VIAL IVPUSH SCH (22:00)
[2021-12-12] MEDS: MAG HYDROX/ALH/SMC/DPHA/LIDO 240 ML MOUTHWASH MM SCH ×3 (00:55→12:03)
[2021-12-12] MEDS: NYSTATIN 500,000 UNITS/5 ML SUSPENSION PO SCH ×3 (00:55→12:03)
[2021-12-12] MEDS: guaiFENesin 200 MG/10 ML 10 ML UNIT-DOSE CUPS PO SCH ×6 (00:55→15:13)
[2021-12-12] MEDS: NYSTATIN 100,000 UNIT/GM TOPICAL CREAM 15 GM TUBE TP SCH ×3 (00:56→12:08)
[2021-12-12] MEDS: ALBUTEROL SO4 0.083% IH SOL 2.5 MG/3 ML VIAL.NEB. NEB SCH ×3 (04:43→11:55)
[2021-12-12] MEDS: PANTOPRAZOLE 40 MG TABLET PO SCH (09:37)
[2021-12-12] MEDS: ESCITALOPRAM OXALATE 10 MG TABLET PO SCH (09:37)
[2021-12-12] MEDS: TOPIRAMATE 25 MG TABLET PO SCH (09:37)
[2021-12-12] MEDS: LORATADINE 10 MG TABLET PO SCH (09:37)
[2021-12-12] MEDS: ENOXAPARIN NA (PORCINE) 40 MG/0.4 ML DISP.SYRIN SQ SCH (09:38)
[2021-12-12] MEDS: FLUTICASONE PROP 0.05% 16 GM NASAL SPRAY NS SCH (09:43)
[2021-12-12 09:55] LABS: HEMATOCRIT 38.4 % (32.4-45.2); HEMOGLOBIN 13.1 GM/dL (10.7-15.3); MCHC 34.2 g/dl (32.0-36.0); MEAN CELL VOLUME 81.8 fl (80-96); PLATELET COUNT 321 10^3/uL (134-434); RBC 4.69 M/mm3 (3.60-5.2); RDW 17.7 % (11.6-15.6); WHITE BLOOD COUNT 7.5 K/mm3 (4.0-10.0)
[2021-12-12] MEDS ORDERED: methylPREDNISolone NA SUCC 40 MG/1 ML VIAL IVPUSH SCH (10:00)
[2021-12-12] MEDS ORDERED: POLYETHYLENE GLYCOL (HEALTHYLAX) 3350 17 GM PACKET PO SCH (10:00)
[2021-12-12 10:24] LABS: CALCIUM 8.3 mg/dL (8.5-10.1)
[2021-12-12 10:25] LABS: ALBUMIN 3.2 g/dl (3.4-5.0)
[2021-12-12 10:27] LABS: CREATININE 0.7 mg/dL (0.55-1.3)
[2021-12-12 10:29] LABS: BILIRUBIN,TOTAL 0.3 mg/dL (0.2-1); TOT PROT 6.3 g/dl (6.4-8.2)
[2021-12-12 10:33] LABS: MAGNESIUM 2.4 mg/dL (1.8-2.4)
[2021-12-12 11:53] LABS: ANISOCYTOSIS 2+; MACROCYTOSIS 0
[2021-12-12 14:04] VITALS: BP 112/69; PULSE 95; TEMP 98.6
[2021-12-13] MEDS ORDERED: predniSONE 20 MG TABLET (UD) PO SCH (10:00)
== END 2021-12-12 16:18 | disposition home or self-care (01) | DRG 139 ==
LOC: JER 19:36 → JERBED 11-27 01:16 → OBSVTOIN 11-27 05:55 → J5S 11-27 18:16
PROVIDERS: ADMIT Hospitalist; ATTEND Nurse Practitioner Acute Care
DX: J18.9 Pneumonia, unspecified organism (principal); Q90.9 Down syndrome, unspecified; J02.9 Acute pharyngitis, unspecified; D84.9 Immunodeficiency, unspecified; D83.9 Common variable immunodeficiency, unspecified; N39.0 Urinary tract infection, site not specified; B37.0 Candidal stomatitis; R27.0 Ataxia, unspecified; N76.0 Acute vaginitis; B37.3 Candidiasis of vulva and vagina; G43.809 Other migraine, not intractable, without status migrainosus; R62.50 Unspecified lack of expected normal physiological development in childhood; J98.11 Atelectasis; I78.1 Nevus, non-neoplastic; J45.901 Unspecified asthma with (acute) exacerbation; B95.2 Enterococcus as the cause of diseases classified elsewhere; B95.7 Other staphylococcus as the cause of diseases classified elsewhere
CPT/HCPCS: 0241U-QW; 36415; 71045-TC-FY; 71250-TC; 71275-TC; 74230-TC-FY; 80053; 81003; 82550; 82553; 82803; 83605; 83735; 84100; 84484; 84703; 85025; 85610; 85730; 86140; 86850; 86900; 86901; 87040; 87070; 87086; 87186; 87205; 87899; 92611-GN; 93005; 93010; 93306-TC; 94010; 94150; 94640; 94761; 97116-GP; 97161-GP; 99285-25; C9803-CS; G0378; J0878; Q9967; U0003; U0005

== ENCOUNTER 2022-07-29 01:21 | Inpatient (IN) | payer OTHER ==
[2022-07-29] MEDS ORDERED: IBUPROFEN 600 MG TABLET (FP) PO ONE ×3 (01:38→02:00)
[2022-07-29] MEDS: ALBUTEROL SO4 2.5/IPRATROPIUM 0.5 INH SOL 3 ML VIAL.NEB. NEB SCH ×4 (01:44→02:35)
[2022-07-29] MEDS ORDERED: DOXYCYCLINE HYCLATE 100 MG CAPSULE PO ONE ×2 (01:48→02:23)
[2022-07-29] MEDS ORDERED: SODIUM CHLORIDE 0.9% 500 ML INFUS.BAG IV ONE (01:49)
[2022-07-29] MEDS ORDERED: DEXAMETHASONE 4 MG TABLET (FP) PO ONE (02:00)
[2022-07-29] MEDS ORDERED: DEXAMETHASONE SOD PHOSPHATE 10 MG/1 ML VIAL ONE (02:23)
[2022-07-29 03:07] LABS: HEMATOCRIT 39.3 % (32.4-45.2); HEMOGLOBIN 13.6 GM/dL (10.7-15.3); MCH 27.8 pg (25.7-33.7); MCHC 34.6 g/dl (32.0-36.0); MEAN CELL VOLUME 80.2 fl (80-96); MEAN PLT VOLUME 9.3 fl (7.5-11.1); PLATELET COUNT 161 10^3/uL (134-434); RDW 18.1 % (11.6-15.6); WHITE BLOOD COUNT 8.9 K/mm3 (4.0-10.0)
[2022-07-29 03:50] LABS: ANISOCYTOSIS 1+; MACROCYTOSIS 0; OVALOCYTE 1+
[2022-07-29 04:11] LABS: ALBUMIN 4.1 g/dl (3.4-5.0); CALCIUM 8.9 mg/dL (8.5-10.1)
[2022-07-29 04:12] LABS: BLOOD UREA NITROGEN 14.8 mg/dL (7-18)
[2022-07-29 04:14] LABS: CREATININE 0.9 mg/dL (0.55-1.3)
[2022-07-29 04:16] LABS: BILIRUBIN,TOTAL 0.4 mg/dL (0.2-1); TOT PROT 7.9 g/dl (6.4-8.2)
[2022-07-29] MEDS ORDERED: SENNOSIDES 8.6MG TABLET (FP) PO PRN (06:11)
[2022-07-29] MEDS ORDERED: PATIENT'S OWN MEDICATION (NON-FORMULARY) (Rizatriptan Benzoate [Rizatriptan] 10 MG Tablet) PO PRN (06:11)
[2022-07-29] MEDS ORDERED: ALBUTEROL SO4 0.083% IH SOL 2.5 MG/3 ML VIAL.NEB. NEB PRN (06:11)
[2022-07-29] MEDS ORDERED: guaiFENesin 600 MG TABLET.ER (FP) PO PRN (06:11)
[2022-07-29] MEDS ORDERED: guaiFENesin 200 MG/10 ML 10 ML UNIT-DOSE CUPS PO PRN (06:11)
[2022-07-29] MEDS: KCL 10 MEQ IVPB 10 MEQ/100 ML INFUS.BAG IVPB SCH ×3 (06:59→09:58)
[2022-07-29] MEDS: SODIUM CHLORIDE 1,000 ML IV SCH ×2 (06:59→15:00)
[2022-07-29] MEDS ORDERED: KCL 10 MEQ IVPB 10 MEQ/100 ML INFUS.BAG IVPB ONE (07:02)
[2022-07-29] MEDS ORDERED: KCL 10 MEQ IVPB 20 MEQ/200 ML INFUS.BAG IVPB ONE (08:37)
[2022-07-29] MEDS ORDERED: REMDESIVIR 200 MG in SODIUM CHLORIDE 250 ML IVPB ONE (09:00)
[2022-07-29 09:23] LABS: ERYTHROCYTE SEDIMENTATION RATE 14 mm/hr (0-20)
[2022-07-29] MEDS ORDERED: TOPIRAMATE 25 MG TABLET ONE (09:26)
[2022-07-29] MEDS ORDERED: LORATADINE 10 MG TABLET ONE (09:26)
[2022-07-29] MEDS ORDERED: POLYETHYLENE GLYCOL (HEALTHYLAX) 3350 17 GM PACKET ONE (09:26)
[2022-07-29] MEDS ORDERED: ESCITALOPRAM OXALATE 10 MG TABLET ONE (09:26)
[2022-07-29] MEDS ORDERED: ENOXAPARIN NA (PORCINE) 40 MG/0.4 ML DISP.SYRIN SQ ONE (09:26)
[2022-07-29] MEDS: ESCITALOPRAM OXALATE 10 MG TABLET PO SCH (09:41)
[2022-07-29] MEDS: LORATADINE 10 MG TABLET PO SCH (09:41)
[2022-07-29] MEDS: ENOXAPARIN NA (PORCINE) 40 MG/0.4 ML DISP.SYRIN SQ SCH (09:41)
[2022-07-29] MEDS: TOPIRAMATE 25 MG TABLET PO SCH ×2 (09:41→22:09)
[2022-07-29] MEDS: POLYETHYLENE GLYCOL (HEALTHYLAX) 3350 17 GM PACKET PO SCH ×2 (09:41→22:08)
[2022-07-29] MEDS ORDERED: MONTELUKAST NA 10 MG TABLET PO SCH (10:00)
[2022-07-29 11:47] VITALS: BMI 26.5
[2022-07-29] MEDS: MAG HYDROX/ALH/SMC/DPHA/LIDO 240 ML MOUTHWASH MM SCH ×2 (13:23→17:11)
[2022-07-29] MEDS: DOCUSATE SODIUM 100 MG CAPSULE (FP) PO SCH (22:08)
[2022-07-30] MEDS: MAG HYDROX/ALH/SMC/DPHA/LIDO 240 ML MOUTHWASH MM SCH ×4 (02:13→18:28)
[2022-07-30] MEDS: SODIUM CHLORIDE 1,000 ML IV SCH (06:15)
[2022-07-30 09:20] LABS: HEMATOCRIT 37.3 % (32.4-45.2); HEMOGLOBIN 12.6 GM/dL (10.7-15.3); MCH 27.4 pg (25.7-33.7); MCHC 33.7 g/dl (32.0-36.0); MEAN CELL VOLUME 81.3 fl (80-96); MEAN PLT VOLUME 9.1 fl (7.5-11.1); PLATELET COUNT 157 10^3/uL (134-434); RBC 4.59 M/mm3 (3.60-5.2); RDW 18.1 % (11.6-15.6)
[2022-07-30] MEDS: LORATADINE 10 MG TABLET PO SCH (09:58)
[2022-07-30] MEDS: ESCITALOPRAM OXALATE 10 MG TABLET PO SCH (09:58)
[2022-07-30] MEDS: TOPIRAMATE 25 MG TABLET PO SCH ×2 (09:58→22:12)
[2022-07-30] MEDS: ENOXAPARIN NA (PORCINE) 40 MG/0.4 ML DISP.SYRIN SQ SCH (09:59)
[2022-07-30] MEDS: POLYETHYLENE GLYCOL (HEALTHYLAX) 3350 17 GM PACKET PO SCH ×2 (09:59→22:13)
[2022-07-30] MEDS: DEXAMETHASONE SOD PHOSPHATE 10 MG/1 ML VIAL IVPUSH SCH (09:59)
[2022-07-30] MEDS ORDERED: REMDESIVIR 100 MG in SODIUM CHLORIDE 250 ML IVPB SCH (10:00)
[2022-07-30] MEDS ORDERED: REMDESIVIR 200 MG in SODIUM CHLORIDE 250 ML IVPB ONE (11:00)
[2022-07-30] MEDS ORDERED: ALBUTEROL SO4 HFA INHALER IH PRN (11:30)
[2022-07-30] MEDS: guaiFENesin 600 MG TABLET.ER (FP) PO SCH ×2 (12:42→22:13)
[2022-07-30] MEDS: DOCUSATE SODIUM 100 MG CAPSULE (FP) PO SCH (22:11)
[2022-07-30] MEDS: MONTELUKAST NA 10 MG TABLET PO SCH (22:12)
[2022-07-31] MEDS: MAG HYDROX/ALH/SMC/DPHA/LIDO 240 ML MOUTHWASH MM SCH ×4 (01:00→17:09)
[2022-07-31] MEDS: ENOXAPARIN NA (PORCINE) 40 MG/0.4 ML DISP.SYRIN SQ SCH (09:57)
[2022-07-31] MEDS: POLYETHYLENE GLYCOL (HEALTHYLAX) 3350 17 GM PACKET PO SCH (09:57)
[2022-07-31] MEDS: guaiFENesin 600 MG TABLET.ER (FP) PO SCH ×2 (09:58→21:34)
[2022-07-31] MEDS: ESCITALOPRAM OXALATE 10 MG TABLET PO SCH (09:58)
[2022-07-31] MEDS: LORATADINE 10 MG TABLET PO SCH (09:58)
[2022-07-31] MEDS: DEXAMETHASONE SOD PHOSPHATE 10 MG/1 ML VIAL IVPUSH SCH (09:58)
[2022-07-31] MEDS: TOPIRAMATE 25 MG TABLET PO SCH ×2 (09:58→21:34)
[2022-07-31] MEDS: REMDESIVIR 100 MG in SODIUM CHLORIDE 250 ML IVPB SCH (10:00)
[2022-07-31] MEDS: MELATONIN 5 MG TABLETS PO PRN (21:34)
[2022-07-31] MEDS: MONTELUKAST NA 10 MG TABLET PO SCH (21:35)
[2022-08-01] MEDS: MAG HYDROX/ALH/SMC/DPHA/LIDO 240 ML MOUTHWASH MM SCH ×4 (01:00→17:03)
[2022-08-01] MEDS ORDERED: PATIENT'S OWN MEDICATION (NON-FORMULARY) (Linaclotide [Linzess] 72 MCG Capsule) PO SCH (10:00)
[2022-08-01 10:21] LABS: BASO % 0.4 % (0-2.0); EOS % 0.4 % (0-4.5); HEMATOCRIT 37.1 % (32.4-45.2); HEMOGLOBIN 12.4 GM/dL (10.7-15.3); LYMPH % 26.1 % (8-40); MCH 26.9 pg (25.7-33.7); MCHC 33.6 g/dl (32.0-36.0); MEAN CELL VOLUME 80.3 fl (80-96); MEAN PLT VOLUME 8.9 fl (7.5-11.1); MONO % 13.3 % (3.8-10.2); NEUT % 59.8 % (42.8-82.8); PLATELET COUNT 188 10^3/uL (134-434); RBC 4.62 M/mm3 (3.60-5.2); WHITE BLOOD COUNT 3.4 K/mm3 (4.0-10.0)
[2022-08-01] MEDS: ENOXAPARIN NA (PORCINE) 40 MG/0.4 ML DISP.SYRIN SQ SCH (10:31)
[2022-08-01] MEDS: TOPIRAMATE 25 MG TABLET PO SCH ×2 (10:31→21:30)
[2022-08-01] MEDS: ESCITALOPRAM OXALATE 10 MG TABLET PO SCH (10:31)
[2022-08-01] MEDS: DEXAMETHASONE SOD PHOSPHATE 10 MG/1 ML VIAL IVPUSH SCH (10:32)
[2022-08-01] MEDS: guaiFENesin 600 MG TABLET.ER (FP) PO SCH ×2 (10:32→21:30)
[2022-08-01] MEDS: LORATADINE 10 MG TABLET PO SCH (10:32)
[2022-08-01] MEDS: REMDESIVIR 100 MG in SODIUM CHLORIDE 250 ML IVPB SCH (10:33)
[2022-08-01 10:54] LABS: ALBUMIN 3.3 g/dl (3.4-5.0); BILIRUBIN,TOTAL 0.3 mg/dL (0.2-1); BLOOD UREA NITROGEN 15.8 mg/dL (7-18); CALCIUM 8.5 mg/dL (8.5-10.1); CREATININE 0.8 mg/dL (0.55-1.3)
[2022-08-01 10:55] LABS: MAGNESIUM 2.4 mg/dL (1.8-2.4); TOT PROT 6.8 g/dl (6.4-8.2)
[2022-08-01 10:57] LABS: PHOSPHOROUS 3.6 mg/dL (2.5-4.9)
[2022-08-01] MEDS: MONTELUKAST NA 10 MG TABLET PO SCH (21:30)
[2022-08-01] MEDS: DOCUSATE SODIUM 100 MG CAPSULE (FP) PO SCH (21:30)
[2022-08-02] MEDS: MAG HYDROX/ALH/SMC/DPHA/LIDO 240 ML MOUTHWASH MM SCH ×5 (00:27→23:02)
[2022-08-02] MEDS ORDERED: SODIUM CHLORIDE 1,000 ML IV STA (08:11)
[2022-08-02 08:43] LABS: HEMATOCRIT 36.5 % (32.4-45.2); HEMOGLOBIN 12.5 GM/dL (10.7-15.3); MCH 27.4 pg (25.7-33.7); MCHC 34.3 g/dl (32.0-36.0); MEAN CELL VOLUME 79.7 fl (80-96); MEAN PLT VOLUME 8.8 fl (7.5-11.1); PLATELET COUNT 197 10^3/uL (134-434); RBC 4.58 M/mm3 (3.60-5.2); RDW 17.7 % (11.6-15.6); WHITE BLOOD COUNT 3.4 K/mm3 (4.0-10.0)
[2022-08-02 09:11] LABS: CALCIUM 8.4 mg/dL (8.5-10.1); MAGNESIUM 2.3 mg/dL (1.8-2.4)
[2022-08-02 09:14] LABS: CREATININE 0.7 mg/dL (0.55-1.3)
[2022-08-02] MEDS: TOPIRAMATE 25 MG TABLET PO SCH ×2 (09:19→21:21)
[2022-08-02] MEDS: guaiFENesin 600 MG TABLET.ER (FP) PO SCH ×2 (09:20→21:20)
[2022-08-02] MEDS: LORATADINE 10 MG TABLET PO SCH (09:20)
[2022-08-02] MEDS: ESCITALOPRAM OXALATE 10 MG TABLET PO SCH (09:20)
[2022-08-02] MEDS: ENOXAPARIN NA (PORCINE) 40 MG/0.4 ML DISP.SYRIN SQ SCH (09:21)
[2022-08-02] MEDS: DEXAMETHASONE SOD PHOSPHATE 10 MG/1 ML VIAL IVPUSH SCH (10:05)
[2022-08-02] MEDS ORDERED: LACTATED RINGERS SOLUTION 1,000 ML/1,000 ML INFUS.BAG IV ONE ×2 (11:00)
[2022-08-02] MEDS ORDERED: TRIMETHOBENZAMIDE HCL 200MG/2ML INJ IM ONE (11:00)
[2022-08-02] MEDS: REMDESIVIR 100 MG in SODIUM CHLORIDE 250 ML IVPB SCH (11:40)
[2022-08-02] MEDS: MONTELUKAST NA 10 MG TABLET PO SCH (21:21)
[2022-08-02] MEDS: MELATONIN 5 MG TABLETS PO PRN (21:22)
[2022-08-03] MEDS: MAG HYDROX/ALH/SMC/DPHA/LIDO 240 ML MOUTHWASH MM SCH ×4 (05:39→23:11)
[2022-08-03 09:48] LABS: HEMATOCRIT 37.6 % (32.4-45.2); HEMOGLOBIN 13.1 GM/dL (10.7-15.3); MCH 27.9 pg (25.7-33.7); MEAN CELL VOLUME 79.8 fl (80-96); MEAN PLT VOLUME 8.6 fl (7.5-11.1); PLATELET COUNT 221 10^3/uL (134-434); RBC 4.71 M/mm3 (3.60-5.2); RDW 17.8 % (11.6-15.6); WHITE BLOOD COUNT 4.3 K/mm3 (4.0-10.0)
[2022-08-03] MEDS ORDERED: REMDESIVIR 100 MG in SODIUM CHLORIDE 250 ML IVPB SCH (10:00)
[2022-08-03] MEDS: ENOXAPARIN NA (PORCINE) 40 MG/0.4 ML DISP.SYRIN SQ SCH (10:07)
[2022-08-03] MEDS: DEXAMETHASONE SOD PHOSPHATE 10 MG/1 ML VIAL IVPUSH SCH (10:08)
[2022-08-03] MEDS: TOPIRAMATE 25 MG TABLET PO SCH ×2 (10:08→21:29)
[2022-08-03] MEDS: guaiFENesin 600 MG TABLET.ER (FP) PO SCH ×2 (10:08→21:29)
[2022-08-03] MEDS: ESCITALOPRAM OXALATE 10 MG TABLET PO SCH (10:08)
[2022-08-03] MEDS: LORATADINE 10 MG TABLET PO SCH (10:08)
[2022-08-03 10:20] LABS: CALCIUM 8.5 mg/dL (8.5-10.1)
[2022-08-03 10:24] LABS: BLOOD UREA NITROGEN 13.8 mg/dL (7-18)
[2022-08-03 10:27] LABS: CREATININE 0.8 mg/dL (0.55-1.3)
[2022-08-03] MEDS: MELATONIN 5 MG TABLETS PO PRN (21:29)
[2022-08-03] MEDS: MONTELUKAST NA 10 MG TABLET PO SCH (21:29)
[2022-08-04] MEDS: MAG HYDROX/ALH/SMC/DPHA/LIDO 240 ML MOUTHWASH MM SCH ×3 (06:31→17:57)
[2022-08-04] MEDS: TOPIRAMATE 25 MG TABLET PO SCH ×2 (09:34→21:24)
[2022-08-04] MEDS: ENOXAPARIN NA (PORCINE) 40 MG/0.4 ML DISP.SYRIN SQ SCH (09:34)
[2022-08-04] MEDS: ESCITALOPRAM OXALATE 10 MG TABLET PO SCH (09:34)
[2022-08-04] MEDS: LORATADINE 10 MG TABLET PO SCH (09:34)
[2022-08-04] MEDS: DEXAMETHASONE SOD PHOSPHATE 10 MG/1 ML VIAL IVPUSH SCH (09:34)
[2022-08-04] MEDS: guaiFENesin 600 MG TABLET.ER (FP) PO SCH ×2 (09:34→21:24)
[2022-08-04] MEDS: FLUTICASONE PROP 0.05% 16 GM NASAL SPRAY NS SCH (15:13)
[2022-08-04] MEDS: MONTELUKAST NA 10 MG TABLET PO SCH (21:24)
[2022-08-04] MEDS: MELATONIN 5 MG TABLETS PO PRN (21:24)
[2022-08-05] MEDS: MAG HYDROX/ALH/SMC/DPHA/LIDO 240 ML MOUTHWASH MM SCH ×4 (06:05→18:05)
[2022-08-05 09:17] LABS: BASO % 0.5 % (0-2.0); EOS % 1.4 % (0-4.5); HEMATOCRIT 39.7 % (32.4-45.2); HEMOGLOBIN 13.3 GM/dL (10.7-15.3); MCH 26.7 pg (25.7-33.7); MCHC 33.4 g/dl (32.0-36.0); MEAN PLT VOLUME 8.9 fl (7.5-11.1); MONO % 13.7 % (3.8-10.2); NEUT % 64.4 % (42.8-82.8); PLATELET COUNT 227 10^3/uL (134-434); RBC 4.96 M/mm3 (3.60-5.2); RDW 18.1 % (11.6-15.6); WHITE BLOOD COUNT 4.5 K/mm3 (4.0-10.0)
[2022-08-05] MEDS: TOPIRAMATE 25 MG TABLET PO SCH ×2 (09:31→21:41)
[2022-08-05] MEDS: ESCITALOPRAM OXALATE 10 MG TABLET PO SCH (09:31)
[2022-08-05] MEDS: predniSONE 20 MG TABLET (UD) PO SCH (09:31)
[2022-08-05] MEDS: guaiFENesin 600 MG TABLET.ER (FP) PO SCH ×2 (09:32→21:42)
[2022-08-05] MEDS: ENOXAPARIN NA (PORCINE) 40 MG/0.4 ML DISP.SYRIN SQ SCH (09:32)
[2022-08-05] MEDS: LORATADINE 10 MG TABLET PO SCH (09:32)
[2022-08-05] MEDS: FLUTICASONE PROP 0.05% 16 GM NASAL SPRAY NS SCH (09:35)
[2022-08-05 09:53] LABS: CALCIUM 8.3 mg/dL (8.5-10.1)
[2022-08-05 10:00] LABS: BLOOD UREA NITROGEN 14.2 mg/dL (7-18); CREATININE 0.8 mg/dL (0.55-1.3)
[2022-08-05] MEDS: POLYETHYLENE GLYCOL (HEALTHYLAX) 3350 17 GM PACKET PO SCH ×2 (16:06→21:42)
[2022-08-05] MEDS: MONTELUKAST NA 10 MG TABLET PO SCH (21:42)
[2022-08-05] MEDS: MELATONIN 5 MG TABLETS PO PRN (21:42)
[2022-08-06] MEDS: MAG HYDROX/ALH/SMC/DPHA/LIDO 240 ML MOUTHWASH MM SCH ×2 (05:58)
[2022-08-06] MEDS: FLUTICASONE PROP 0.05% 16 GM NASAL SPRAY NS SCH (10:30)
[2022-08-06] MEDS: guaiFENesin 600 MG TABLET.ER (FP) PO SCH (10:30)
[2022-08-06] MEDS: POLYETHYLENE GLYCOL (HEALTHYLAX) 3350 17 GM PACKET PO SCH (10:30)
[2022-08-06] MEDS: ENOXAPARIN NA (PORCINE) 40 MG/0.4 ML DISP.SYRIN SQ SCH (10:30)
[2022-08-06] MEDS: ESCITALOPRAM OXALATE 10 MG TABLET PO SCH (10:30)
[2022-08-06] MEDS: predniSONE 20 MG TABLET (UD) PO SCH (10:30)
[2022-08-06] MEDS: TOPIRAMATE 25 MG TABLET PO SCH (10:30)
[2022-08-06] MEDS: LORATADINE 10 MG TABLET PO SCH (10:30)
[2022-08-06 12:39] VITALS: BP 100/62; PULSE 77; RESP 18; TEMP 98.3
== END 2022-08-06 13:08 | disposition home health service (06) | DRG 137 ==
LOC: JER 01:21 → JERBED 04:40 → J6S 10:20
PROVIDERS: ADMIT Internal Medicine; ATTEND Internal Medicine
PROC: XW033E5 Introduction of Remdesivir Anti-infective into Peripheral Vein, Percutaneous Approach, New Technology Group 5 (ICD-10-PCS; principal; 2022-07-29)
DX: U07.1 COVID-19 (principal); J12.82 Pneumonia due to coronavirus disease 2019; R62.50 Unspecified lack of expected normal physiological development in childhood; D83.9 Common variable immunodeficiency, unspecified; Q90.9 Down syndrome, unspecified; G40.909 Epilepsy, unspecified, not intractable, without status epilepticus; J45.909 Unspecified asthma, uncomplicated; G11.3 Cerebellar ataxia with defective DNA repair; G43.909 Migraine, unspecified, not intractable, without status migrainosus; R09.02 Hypoxemia; R07.89 Other chest pain; J98.11 Atelectasis
CPT/HCPCS: 0241U-QW; 36415; 71045-TC-FY; 80048; 80053; 82308; 82728; 83615; 83735; 84100; 85025; 85027; 85379; 85651; 86140; 87040; 93005; 93010; 94010; 94761; 97116-GP; 97162-GP; 99285-25; C9399; J1100

== ENCOUNTER 2022-11-20 20:43 | Emergency (ER) | payer OTHER ==
[2022-11-20 20:55] VITALS: BMI 24.7
[2022-11-20] MEDS ORDERED: DEXAMETHASONE SOD PHOSPHATE 10 MG/1 ML VIAL IM ONE (22:07)
[2022-11-20] MEDS ORDERED: ALBUTEROL SO4 2.5/IPRATROPIUM 0.5 INH SOL 3 ML VIAL.NEB. NEB ONE (22:08)
[2022-11-20] MEDS ORDERED: DEXAMETHASONE SOD PHOSPHATE 10 MG/1 ML VIAL ONE (22:08)
[2022-11-20] MEDS: ALBUTEROL SO4 2.5/IPRATROPIUM 0.5 INH SOL 3 ML VIAL.NEB. NEB SCH (22:12)
[2022-11-20] MEDS ORDERED: ACETAMINOPHEN 500 MG TABLET (FP) ONE (22:49)
[2022-11-21 00:43] LABS: BASO % 0.3 % (0-2.0); EOS % 1.4 % (0-4.5); HEMATOCRIT 39.5 % (32.4-45.2); LYMPH % 14.9 % (8-40); MCH 25.3 pg (25.7-33.7); MCHC 32.8 g/dl (32.0-36.0); MEAN CELL VOLUME 77.2 fl (80-96); MEAN PLT VOLUME 8.5 fl (7.5-11.1); MONO % 5.6 % (3.8-10.2); NEUT % 77.8 % (42.8-82.8); PLATELET COUNT 220 10^3/uL (134-434); RBC 5.12 M/mm3 (3.60-5.2); RDW 18.9 % (11.6-15.6); WHITE BLOOD COUNT 8.8 K/mm3 (4.0-10.0)
[2022-11-21 01:01] LABS: POTASSIUM 3.7 mmol/L (3.5-5.1)
[2022-11-21 01:04] LABS: CALCIUM 8.4 mg/dL (8.5-10.1)
[2022-11-21 01:05] LABS: ALBUMIN 3.4 g/dl (3.4-5.0)
[2022-11-21 01:08] LABS: CREATININE 0.6 mg/dL (0.55-1.3)
[2022-11-21 01:10] LABS: BILIRUBIN,TOTAL 0.2 mg/dL (0.2-1); TOT PROT 6.7 g/dl (6.4-8.2)
[2022-11-21 01:21] VITALS: BP 113/71; PULSE 92; RESP 16; TEMP 98.9
[2022-11-21] MEDS ORDERED: ONDANSETRON 4 MG/2 ML VIAL IVPUSH ONE (01:45)
[2022-11-21] MEDS ORDERED: FAMOTIDINE 20 MG/50 ML IVPB 20 MG/50 ML MG IVPB ONE ×2 (01:45→01:51)
[2022-11-21] MEDS ORDERED: ONDANSETRON 4 MG/2 ML VIAL ONE (01:51)
== END 2022-11-21 03:33 | disposition home or self-care (01) ==
LOC: JERFT 20:43 → JER 20:43 → JERFT 22:44 → JER 11-21 03:33
PROC: 3E0F7GC Introduction of Other Therapeutic Substance into Respiratory Tract, Via Natural or Artificial Opening (ICD-10-PCS; 2022-11-20)
PROC: 3E0233Z Introduction of Anti-inflammatory into Muscle, Percutaneous Approach (ICD-10-PCS; 2022-11-20)
PROC: 3E033GC Introduction of Other Therapeutic Substance into Peripheral Vein, Percutaneous Approach (ICD-10-PCS; principal; 2022-11-21)
PROC: 3E033GC Introduction of Other Therapeutic Substance into Peripheral Vein, Percutaneous Approach (ICD-10-PCS; 2022-11-21)
DX: R05.1 Acute cough (principal); R11.0 Nausea; R07.9 Chest pain, unspecified
CPT/HCPCS: 36415; 71046-TC-FY; 80053; 84484; 84703; 85025; 85730; 93005; 93010; 99285-25; J1100

== ENCOUNTER 2023-04-13 16:04 | Emergency (ER) | payer OTHER ==
[2023-04-13 16:07] VITALS: BP 123/84; PULSE 90; RESP 18; TEMP 99.3; BMI 27.1
[2023-04-13] MEDS ORDERED: DEXAMETHASONE SOD PHOSPHATE 10 MG/1 ML VIAL PO ONE (18:16)
[2023-04-13] MEDS ORDERED: DEXAMETHASONE SOD PHOSPHATE 10 MG/1 ML VIAL ONE (18:21)
== END 2023-04-13 18:24 | disposition home or self-care (01) ==
LOC: JERFT 16:04
PROC: 3E033GC Introduction of Other Therapeutic Substance into Peripheral Vein, Percutaneous Approach (ICD-10-PCS; principal; 2023-04-13)
DX: R05.9 Cough, unspecified (principal); R09.89 Other specified symptoms and signs involving the circulatory and respiratory systems
CPT/HCPCS: 71046-TC-FY; 99284-25; J1100

== ENCOUNTER 2023-04-24 23:15 | Inpatient (IN) | payer OTHER ==
[2023-04-25] MEDS ORDERED: ACETAMINOPHEN 1000 MG/100 ML BAG IVPB ONE (00:02)
[2023-04-25] MEDS ORDERED: SODIUM CHLORIDE 0.9% 500 ML INFUS.BAG IV ONE (00:02)
[2023-04-25] MEDS ORDERED: ALBUTEROL SO4 2.5/IPRATROPIUM 0.5 INH SOL 3 ML VIAL.NEB. NEB ONE ×3 (00:02→08:37)
[2023-04-25] MEDS ORDERED: ONDANSETRON 4 MG/2 ML VIAL IVPUSH ONE ×2 (00:12→03:30)
[2023-04-25] MEDS ORDERED: ACETAMINOPHEN INJECTION 100 ML IVPB ONE (00:16)
[2023-04-25] MEDS ORDERED: ONDANSETRON 4 MG/2 ML VIAL ONE ×2 (00:16→03:30)
[2023-04-25 00:53] LABS: BASO % 0.7 % (0-2.0); EOS % 6.9 % (0-4.5); HEMATOCRIT 38.7 % (32.4-45.2); LYMPH % 17.2 % (8-40); MCH 24.2 pg (25.7-33.7); MCHC 33.5 g/dl (32.0-36.0); MEAN CELL VOLUME 72.3 fl (80-96); MEAN PLT VOLUME 8.9 fl (7.5-11.1); MONO % 7.3 % (3.8-10.2); NEUT % 67.9 % (42.8-82.8); PLATELET COUNT 227 10^3/uL (134-434); RBC 5.36 M/mm3 (3.60-5.2); RDW 20.4 % (11.6-15.6); WHITE BLOOD COUNT 5.9 K/mm3 (4.0-10.0)
[2023-04-25 01:21] LABS: INR 0.97 (0.83-1.09); PROTHROMBIN TIME (PATIENT) 11.2 SEC (9.7-13.0)
[2023-04-25 01:24] LABS: ACTIVATED PTT 32.4 SECONDS (25.2-36.5)
[2023-04-25 02:30] LABS: POTASSIUM 3.8 mmol/L (3.5-5.1)
[2023-04-25 02:32] LABS: CALCIUM 9.2 mg/dL (8.5-10.1)
[2023-04-25 02:33] LABS: ALBUMIN 3.9 g/dl (3.4-5.0); BLOOD UREA NITROGEN 8.9 mg/dL (7-18); MAGNESIUM 2.2 mg/dL (1.8-2.4)
[2023-04-25 02:36] LABS: CREATININE 0.9 mg/dL (0.55-1.3)
[2023-04-25 02:37] LABS: BILIRUBIN,TOTAL 0.4 mg/dL (0.2-1)
[2023-04-25] MEDS: ALBUTEROL SO4 2.5/IPRATROPIUM 0.5 INH SOL 3 ML VIAL.NEB. NEB SCH ×7 (02:42→20:35)
[2023-04-25] MEDS ORDERED: TOPIRAMATE 25 MG TABLET PO PRN ×2 (06:45→10:00)
[2023-04-25] MEDS ORDERED: [UNRECOGNIZED DRUG - OTHER] PO PRN (06:45)
[2023-04-25] MEDS ORDERED: DEXTROMETHORPHAN HBR PO PRN (06:45)
[2023-04-25] MEDS ORDERED: DEXTROMETHORPHAN HBR 15 MG PO PRN (06:52)
[2023-04-25 07:48] LABS: BASO % 0.6 % (0-2.0); EOS % 5.7 % (0-4.5); HEMATOCRIT 33.5 % (32.4-45.2); HEMOGLOBIN 10.9 GM/dL (10.7-15.3); LYMPH % 13.3 % (8-40); MCH 24.1 pg (25.7-33.7); MCHC 32.6 g/dl (32.0-36.0); MEAN CELL VOLUME 73.9 fl (80-96); MEAN PLT VOLUME 9.1 fl (7.5-11.1); MONO % 9.6 % (3.8-10.2); NEUT % 70.8 % (42.8-82.8); PLATELET COUNT 181 10^3/uL (134-434); RBC 4.54 M/mm3 (3.60-5.2); RDW 19.9 % (11.6-15.6); WHITE BLOOD COUNT 5.2 K/mm3 (4.0-10.0)
[2023-04-25 08:27] LABS: POTASSIUM 3.3 mmol/L (3.5-5.1)
[2023-04-25] MEDS ORDERED: POLYETHYLENE GLYCOL (HEALTHYLAX) 3350 17 GM PACKET ONE (08:37)
[2023-04-25 08:38] LABS: CALCIUM 8.2 mg/dL (8.5-10.1)
[2023-04-25] MEDS ORDERED: ESCITALOPRAM OXALATE 10 MG TABLET ONE (08:38)
[2023-04-25] MEDS ORDERED: FAMOTIDINE 20 MG TABLET ONE (08:38)
[2023-04-25] MEDS ORDERED: LORATADINE 10 MG TABLET ONE (08:38)
[2023-04-25] MEDS ORDERED: MONTELUKAST NA 10 MG TABLET ONE (08:38)
[2023-04-25 08:39] LABS: ALBUMIN 3.3 g/dl (3.4-5.0); BLOOD UREA NITROGEN 6.8 mg/dL (7-18); MAGNESIUM 2.1 mg/dL (1.8-2.4)
[2023-04-25 08:41] LABS: PHOSPHOROUS 3.8 mg/dL (2.5-4.9)
[2023-04-25 08:42] LABS: CREATININE 0.7 mg/dL (0.55-1.3)
[2023-04-25 08:43] LABS: BILIRUBIN,TOTAL 0.3 mg/dL (0.2-1); TOT PROT 6.5 g/dl (6.4-8.2)
[2023-04-25] MEDS: POLYETHYLENE GLYCOL (HEALTHYLAX) 3350 17 GM PACKET PO SCH ×3 (08:54→23:08)
[2023-04-25] MEDS: FAMOTIDINE 20 MG TABLET PO SCH ×2 (08:54→09:10)
[2023-04-25] MEDS: MONTELUKAST NA 10 MG TABLET PO SCH ×2 (08:54→09:10)
[2023-04-25] MEDS: ESCITALOPRAM OXALATE 10 MG TABLET PO SCH ×2 (08:54→09:10)
[2023-04-25] MEDS: LORATADINE 10 MG TABLET PO SCH ×2 (08:54→09:10)
[2023-04-25] MEDS: ENOXAPARIN NA (PORCINE) 40 MG/0.4 ML DISP.SYRIN SQ SCH ×2 (08:56→09:10)
[2023-04-25] MEDS: methylPREDNISolone NA SUCC 40 MG/1 ML VIAL IVPUSH SCH ×3 (08:56→17:28)
[2023-04-25] MEDS ORDERED: methylPREDNISolone NA SUCC 40 MG/1 ML VIAL ONE (08:56)
[2023-04-25] MEDS ORDERED: ENOXAPARIN NA (PORCINE) 40 MG/0.4 ML DISP.SYRIN SQ ONE (08:56)
[2023-04-25] MEDS: FLUTICASONE PROP 0.05% 16 GM NASAL SPRAY NS SCH (09:11)
[2023-04-25] MEDS ORDERED: POTASSIUM CHLORIDE ORAL LIQUID 20 MEQ/15 ML PO ONE (14:14)
[2023-04-25] MEDS: LACTATED RINGERS SOLUTION 1,000 ML/1,000 ML INFUS.BAG IV SCH (15:33)
[2023-04-25] MEDS: DOCUSATE SODIUM 100 MG CAPSULE (FP) PO SCH (23:07)
[2023-04-26] MEDS: FLUTICASONE PROP 0.05% 16 GM NASAL SPRAY NS SCH ×3 (00:42→21:55)
[2023-04-26] MEDS: methylPREDNISolone NA SUCC 40 MG/1 ML VIAL IVPUSH SCH ×3 (02:35→18:36)
[2023-04-26] MEDS: ALBUTEROL SO4 2.5/IPRATROPIUM 0.5 INH SOL 3 ML VIAL.NEB. NEB SCH ×4 (07:45→20:45)
[2023-04-26 09:49] LABS: POTASSIUM 3.8 mmol/L (3.5-5.1)
[2023-04-26 10:09] LABS: BLOOD UREA NITROGEN 8.8 mg/dL (7-18); CALCIUM 8.8 mg/dL (8.5-10.1)
[2023-04-26 10:12] LABS: CREATININE 0.7 mg/dL (0.55-1.3)
[2023-04-26] MEDS: FAMOTIDINE 20 MG TABLET PO SCH (10:12)
[2023-04-26] MEDS: LORATADINE 10 MG TABLET PO SCH (10:12)
[2023-04-26] MEDS: ENOXAPARIN NA (PORCINE) 40 MG/0.4 ML DISP.SYRIN SQ SCH (10:12)
[2023-04-26] MEDS: ESCITALOPRAM OXALATE 10 MG TABLET PO SCH (10:12)
[2023-04-26] MEDS: POLYETHYLENE GLYCOL (HEALTHYLAX) 3350 17 GM PACKET PO SCH ×2 (10:12→21:54)
[2023-04-26] MEDS: MONTELUKAST NA 10 MG TABLET PO SCH (10:12)
[2023-04-26] MEDS: PATIENT'S OWN MEDICATION (NON-FORMULARY) (Linaclotide [Linzess] 72 MCG Capsule) PO SCH ×2 (14:10→20:40)
[2023-04-26 14:19] VITALS: BMI 26.3
[2023-04-26] MEDS: LACTATED RINGERS SOLUTION 1,000 ML/1,000 ML INFUS.BAG IV SCH (14:57)
[2023-04-26] MEDS: DOCUSATE SODIUM 100 MG CAPSULE (FP) PO SCH (21:54)
[2023-04-26] MEDS: MELATONIN 5 MG TABLETS PO PRN (21:54)
[2023-04-26] MEDS: TOPIRAMATE 25 MG TABLET PO PRN (21:56)
[2023-04-26] MEDS ORDERED: PATIENT'S OWN MEDICATION (NON-FORMULARY) (Linaclotide [Linzess] 145 MCG) PO SCH (22:00)
[2023-04-27] MEDS: NYSTATIN 500,000 UNITS/5 ML SUSPENSION PO SCH ×4 (00:39→17:18)
[2023-04-27] MEDS: methylPREDNISolone NA SUCC 40 MG/1 ML VIAL IVPUSH SCH ×3 (02:45→17:18)
[2023-04-27] MEDS: ALBUTEROL SO4 2.5/IPRATROPIUM 0.5 INH SOL 3 ML VIAL.NEB. NEB SCH ×4 (08:00→19:47)
[2023-04-27 09:12] LABS: HEMATOCRIT 35.7 % (32.4-45.2); HEMOGLOBIN 11.6 GM/dL (10.7-15.3); MCH 24.1 pg (25.7-33.7); MCHC 32.4 g/dl (32.0-36.0); MEAN CELL VOLUME 74.3 fl (80-96); MEAN PLT VOLUME 8.3 fl (7.5-11.1); PLATELET COUNT 203 10^3/uL (134-434); RDW 20.4 % (11.6-15.6)
[2023-04-27] MEDS: POLYETHYLENE GLYCOL (HEALTHYLAX) 3350 17 GM PACKET PO SCH ×2 (09:23→22:45)
[2023-04-27] MEDS: ENOXAPARIN NA (PORCINE) 40 MG/0.4 ML DISP.SYRIN SQ SCH (09:23)
[2023-04-27] MEDS: ESCITALOPRAM OXALATE 10 MG TABLET PO SCH (09:24)
[2023-04-27] MEDS: FLUTICASONE PROP 0.05% 16 GM NASAL SPRAY NS SCH ×3 (09:24→22:45)
[2023-04-27] MEDS: LORATADINE 10 MG TABLET PO SCH (09:24)
[2023-04-27] MEDS: MONTELUKAST NA 10 MG TABLET PO SCH (09:24)
[2023-04-27] MEDS: FAMOTIDINE 20 MG TABLET PO SCH (09:24)
[2023-04-27 09:27] LABS: POTASSIUM 3.7 mmol/L (3.5-5.1)
[2023-04-27 09:32] LABS: ALBUMIN 3.4 g/dl (3.4-5.0); BLOOD UREA NITROGEN 13.7 mg/dL (7-18); CALCIUM 8.7 mg/dL (8.5-10.1); MAGNESIUM 2.3 mg/dL (1.8-2.4)
[2023-04-27 09:35] LABS: CREATININE 0.7 mg/dL (0.55-1.3)
[2023-04-27 09:37] LABS: BILIRUBIN,TOTAL 0.6 mg/dL (0.2-1); TOT PROT 6.9 g/dl (6.4-8.2)
[2023-04-27 12:00] LABS: ANISOCYTOSIS 2+; MACROCYTOSIS 0
[2023-04-27] MEDS: DOCUSATE SODIUM 100 MG CAPSULE (FP) PO SCH (22:45)
[2023-04-28] MEDS: methylPREDNISolone NA SUCC 40 MG/1 ML VIAL IVPUSH SCH ×2 (01:21→10:24)
[2023-04-28] MEDS: NYSTATIN 500,000 UNITS/5 ML SUSPENSION PO SCH ×5 (01:22→23:09)
[2023-04-28] MEDS: MELATONIN 5 MG TABLETS PO PRN ×2 (01:22→21:57)
[2023-04-28] MEDS: ALBUTEROL SO4 2.5/IPRATROPIUM 0.5 INH SOL 3 ML VIAL.NEB. NEB SCH ×4 (07:27→19:44)
[2023-04-28] MEDS ORDERED: BISACODYL 10 MG SUPP.RECT PR ONE (09:21)
[2023-04-28 09:24] LABS: BASO % 0.1 % (0-2.0); HEMATOCRIT 36.2 % (32.4-45.2); LYMPH % 8.4 % (8-40); MCH 24.5 pg (25.7-33.7); MCHC 33.1 g/dl (32.0-36.0); MEAN CELL VOLUME 74.1 fl (80-96); MEAN PLT VOLUME 8.5 fl (7.5-11.1); MONO % 5.1 % (3.8-10.2); NEUT % 86.4 % (42.8-82.8); PLATELET COUNT 191 10^3/uL (134-434); RBC 4.89 M/mm3 (3.60-5.2); RDW 20.9 % (11.6-15.6); WHITE BLOOD COUNT 7.5 K/mm3 (4.0-10.0)
[2023-04-28 09:43] LABS: POTASSIUM 3.7 mmol/L (3.5-5.1)
[2023-04-28 09:47] LABS: ALBUMIN 3.6 g/dl (3.4-5.0); CALCIUM 9.1 mg/dL (8.5-10.1)
[2023-04-28 09:48] LABS: BLOOD UREA NITROGEN 15.8 mg/dL (7-18); MAGNESIUM 2.5 mg/dL (1.8-2.4)
[2023-04-28 09:51] LABS: CREATININE 0.8 mg/dL (0.55-1.3)
[2023-04-28 09:52] LABS: BILIRUBIN,TOTAL 0.7 mg/dL (0.2-1); TOT PROT 7.4 g/dl (6.4-8.2)
[2023-04-28] MEDS: FAMOTIDINE 20 MG TABLET PO SCH (10:24)
[2023-04-28] MEDS: LORATADINE 10 MG TABLET PO SCH (10:24)
[2023-04-28] MEDS: MONTELUKAST NA 10 MG TABLET PO SCH (10:24)
[2023-04-28] MEDS: ESCITALOPRAM OXALATE 10 MG TABLET PO SCH (10:24)
[2023-04-28] MEDS: POLYETHYLENE GLYCOL (HEALTHYLAX) 3350 17 GM PACKET PO SCH ×2 (10:25→21:57)
[2023-04-28] MEDS: ENOXAPARIN NA (PORCINE) 40 MG/0.4 ML DISP.SYRIN SQ SCH (10:25)
[2023-04-28] MEDS: FLUTICASONE PROP 0.05% 16 GM NASAL SPRAY NS SCH ×2 (10:26→21:58)
[2023-04-28 10:29] LABS: ANISOCYTOSIS 3+; MACROCYTOSIS 0
[2023-04-28] MEDS: predniSONE 10 MG TABLET (UD) PO SCH (12:53)
[2023-04-28] MEDS: DOCUSATE SODIUM 100 MG CAPSULE (FP) PO SCH (21:57)
[2023-04-28] MEDS: TOPIRAMATE 25 MG TABLET PO PRN (21:58)
[2023-04-29] MEDS: NYSTATIN 500,000 UNITS/5 ML SUSPENSION PO SCH ×3 (06:09→17:43)
[2023-04-29 08:27] LABS: BASO % 0.2 % (0-2.0); EOS % 0.1 % (0-4.5); HEMATOCRIT 38.8 % (32.4-45.2); HEMOGLOBIN 12.6 GM/dL (10.7-15.3); LYMPH % 16.2 % (8-40); MCHC 32.4 g/dl (32.0-36.0); MEAN CELL VOLUME 74.1 fl (80-96); MEAN PLT VOLUME 8.3 fl (7.5-11.1); MONO % 12.4 % (3.8-10.2); NEUT % 71.1 % (42.8-82.8); PLATELET COUNT 198 10^3/uL (134-434); RBC 5.23 M/mm3 (3.60-5.2); RDW 20.5 % (11.6-15.6); WHITE BLOOD COUNT 6.9 K/mm3 (4.0-10.0)
[2023-04-29] MEDS: ALBUTEROL SO4 2.5/IPRATROPIUM 0.5 INH SOL 3 ML VIAL.NEB. NEB SCH ×4 (08:31→19:59)
[2023-04-29 08:41] LABS: POTASSIUM 3.7 mmol/L (3.5-5.1)
[2023-04-29 08:47] LABS: CALCIUM 9.1 mg/dL (8.5-10.1)
[2023-04-29 08:48] LABS: ALBUMIN 3.6 g/dl (3.4-5.0); BLOOD UREA NITROGEN 15.8 mg/dL (7-18); MAGNESIUM 2.5 mg/dL (1.8-2.4)
[2023-04-29 08:51] LABS: CREATININE 0.8 mg/dL (0.55-1.3)
[2023-04-29 08:53] LABS: BILIRUBIN,TOTAL 0.5 mg/dL (0.2-1); TOT PROT 7.2 g/dl (6.4-8.2)
[2023-04-29] MEDS: ENOXAPARIN NA (PORCINE) 40 MG/0.4 ML DISP.SYRIN SQ SCH (11:06)
[2023-04-29] MEDS: POLYETHYLENE GLYCOL (HEALTHYLAX) 3350 17 GM PACKET PO SCH ×2 (11:07→21:16)
[2023-04-29] MEDS: predniSONE 10 MG TABLET (UD) PO SCH (11:07)
[2023-04-29] MEDS: FAMOTIDINE 20 MG TABLET PO SCH (11:07)
[2023-04-29] MEDS: LORATADINE 10 MG TABLET PO SCH (11:08)
[2023-04-29] MEDS: MONTELUKAST NA 10 MG TABLET PO SCH (11:08)
[2023-04-29] MEDS: ESCITALOPRAM OXALATE 10 MG TABLET PO SCH (11:08)
[2023-04-29] MEDS: FLUTICASONE PROP 0.05% 16 GM NASAL SPRAY NS SCH ×2 (11:09→21:18)
[2023-04-29] MEDS: CLOTRIMAZOLE 1% CREAM TP SCH ×2 (17:07→21:18)
[2023-04-29] MEDS: DOCUSATE SODIUM 100 MG CAPSULE (FP) PO SCH (21:16)
[2023-04-29] MEDS: MELATONIN 5 MG TABLETS PO PRN (21:24)
[2023-04-30] MEDS: NYSTATIN 500,000 UNITS/5 ML SUSPENSION PO SCH ×5 (06:10→17:09)
[2023-04-30] MEDS: ALBUTEROL SO4 2.5/IPRATROPIUM 0.5 INH SOL 3 ML VIAL.NEB. NEB SCH ×4 (08:10→21:16)
[2023-04-30] MEDS: POLYETHYLENE GLYCOL (HEALTHYLAX) 3350 17 GM PACKET PO SCH ×2 (09:08→22:29)
[2023-04-30] MEDS: ENOXAPARIN NA (PORCINE) 40 MG/0.4 ML DISP.SYRIN SQ SCH (09:08)
[2023-04-30] MEDS: LORATADINE 10 MG TABLET PO SCH (09:10)
[2023-04-30] MEDS: predniSONE 10 MG TABLET (UD) PO SCH (09:10)
[2023-04-30] MEDS: MONTELUKAST NA 10 MG TABLET PO SCH (09:10)
[2023-04-30] MEDS: ESCITALOPRAM OXALATE 10 MG TABLET PO SCH (09:10)
[2023-04-30] MEDS: FLUTICASONE PROP 0.05% 16 GM NASAL SPRAY NS SCH ×2 (09:10→22:28)
[2023-04-30] MEDS: FAMOTIDINE 20 MG TABLET PO SCH (09:10)
[2023-04-30 09:28] LABS: BASO % 0.1 % (0-2.0); EOS % 1.1 % (0-4.5); HEMATOCRIT 38.8 % (32.4-45.2); HEMOGLOBIN 12.5 GM/dL (10.7-15.3); LYMPH % 17.6 % (8-40); MCH 23.9 pg (25.7-33.7); MCHC 32.1 g/dl (32.0-36.0); MEAN CELL VOLUME 74.2 fl (80-96); MEAN PLT VOLUME 8.3 fl (7.5-11.1); MONO % 14.2 % (3.8-10.2); PLATELET COUNT 192 10^3/uL (134-434); RBC 5.22 M/mm3 (3.60-5.2); WHITE BLOOD COUNT 5.6 K/mm3 (4.0-10.0)
[2023-04-30 09:47] LABS: POTASSIUM 3.7 mmol/L (3.5-5.1)
[2023-04-30] MEDS: CLOTRIMAZOLE 1% CREAM TP SCH ×2 (09:53→22:31)
[2023-04-30 09:55] LABS: BLOOD UREA NITROGEN 16.6 mg/dL (7-18)
[2023-04-30 09:56] LABS: ALBUMIN 3.2 g/dl (3.4-5.0); CALCIUM 8.2 mg/dL (8.5-10.1)
[2023-04-30 09:58] LABS: MAGNESIUM 2.4 mg/dL (1.8-2.4)
[2023-04-30 09:59] LABS: CREATININE 0.7 mg/dL (0.55-1.3)
[2023-04-30 10:00] LABS: BILIRUBIN,TOTAL 0.4 mg/dL (0.2-1); TOT PROT 6.6 g/dl (6.4-8.2)
[2023-04-30] MEDS: DOCUSATE SODIUM 100 MG CAPSULE (FP) PO SCH (22:29)
[2023-04-30] MEDS: MELATONIN 5 MG TABLETS PO PRN (22:43)
[2023-05-01] MEDS: NYSTATIN 500,000 UNITS/5 ML SUSPENSION PO SCH ×4 (00:04→17:31)
[2023-05-01] MEDS: ALBUTEROL SO4 2.5/IPRATROPIUM 0.5 INH SOL 3 ML VIAL.NEB. NEB SCH ×4 (08:05→20:41)
[2023-05-01] MEDS: ENOXAPARIN NA (PORCINE) 40 MG/0.4 ML DISP.SYRIN SQ SCH (10:11)
[2023-05-01] MEDS: FAMOTIDINE 20 MG TABLET PO SCH (10:11)
[2023-05-01] MEDS: ESCITALOPRAM OXALATE 10 MG TABLET PO SCH (10:11)
[2023-05-01] MEDS: CLOTRIMAZOLE 1% CREAM TP SCH ×2 (10:11→22:12)
[2023-05-01] MEDS: LORATADINE 10 MG TABLET PO SCH (10:11)
[2023-05-01] MEDS: MONTELUKAST NA 10 MG TABLET PO SCH (10:11)
[2023-05-01] MEDS: POLYETHYLENE GLYCOL (HEALTHYLAX) 3350 17 GM PACKET PO SCH ×2 (10:11→22:10)
[2023-05-01] MEDS: FLUTICASONE PROP 0.05% 16 GM NASAL SPRAY NS SCH ×2 (10:12→22:12)
[2023-05-01] MEDS: predniSONE 20 MG TABLET (UD) PO SCH (10:12)
[2023-05-01] MEDS ORDERED: SODIUM CHLORIDE NASAL SPRAY 44 ML BOTTLE NS PRN ×2 (11:03→11:58)
[2023-05-01] MEDS: PSEUDOEPHEDRINE HCL 30 MG TABLET PO SCH ×2 (11:35→17:40)
[2023-05-01] MEDS ORDERED: SODIUM CHLORIDE FOR INHALATION 3 ML VIAL.NEB IH SCH (12:00)
[2023-05-01] MEDS ORDERED: BISACODYL 10 MG SUPP.RECT PR ONE (20:45)
[2023-05-01] MEDS: DOCUSATE SODIUM 100 MG CAPSULE (FP) PO SCH (22:10)
[2023-05-01] MEDS: MELATONIN 5 MG TABLETS PO PRN (22:23)
[2023-05-01 23:05] VITALS: RESP 20; TEMP 97.4
[2023-05-02] MEDS: NYSTATIN 500,000 UNITS/5 ML SUSPENSION PO SCH ×3 (00:08→11:18)
[2023-05-02] MEDS: PSEUDOEPHEDRINE HCL 30 MG TABLET PO SCH ×2 (00:08→05:33)
[2023-05-02 07:15] VITALS: BP 117/69; PULSE 80
[2023-05-02] MEDS: ALBUTEROL SO4 2.5/IPRATROPIUM 0.5 INH SOL 3 ML VIAL.NEB. NEB SCH ×2 (08:35→12:28)
[2023-05-02] MEDS: FAMOTIDINE 20 MG TABLET PO SCH (11:18)
[2023-05-02] MEDS: ESCITALOPRAM OXALATE 10 MG TABLET PO SCH (11:18)
[2023-05-02] MEDS: predniSONE 20 MG TABLET (UD) PO SCH (11:18)
[2023-05-02] MEDS: MONTELUKAST NA 10 MG TABLET PO SCH (11:18)
[2023-05-02] MEDS: LORATADINE 10 MG TABLET PO SCH (11:18)
[2023-05-02] MEDS: POLYETHYLENE GLYCOL (HEALTHYLAX) 3350 17 GM PACKET PO SCH (11:19)
[2023-05-02] MEDS: CLOTRIMAZOLE 1% CREAM TP SCH (11:20)
[2023-05-02] MEDS: FLUTICASONE PROP 0.05% 16 GM NASAL SPRAY NS SCH (11:20)
== END 2023-05-02 14:58 | disposition home or self-care (01) | DRG 193 ==
LOC: JER 23:15 → JERBED 04-25 03:08 → INTOOBSV 04-25 03:08 → UNDOADMOB 04-25 03:08 → JERBED 04-25 04:07 → J8W 04-25 10:36 → JERBED 04-25 10:36 → J8W 04-25 10:36 → J7W 04-26 23:50 → OBSVTOIN 04-28 10:28
PROVIDERS: ADMIT Internal Medicine; ATTEND Nurse Practitioner Acute Care
DX: J18.9 Pneumonia, unspecified organism (principal); J96.21 Acute and chronic respiratory failure with hypoxia; J45.901 Unspecified asthma with (acute) exacerbation; D83.9 Common variable immunodeficiency, unspecified; J98.11 Atelectasis; G11.3 Cerebellar ataxia with defective DNA repair; G40.909 Epilepsy, unspecified, not intractable, without status epilepticus; G43.909 Migraine, unspecified, not intractable, without status migrainosus; Q90.9 Down syndrome, unspecified; Z99.81 Dependence on supplemental oxygen
CPT/HCPCS: 0241U-QW; 36415; 71046-TC-FY; 71250-TC; 80048; 80053; 83735; 84100; 84484; 84703; 85025; 85610; 85730; 87040; 87070; 87205; 87899; 93005; 93010; 93306-TC; 94010; 94640; 94761; 97116-GP; 97162-GP; 99285-25; G0378

== ENCOUNTER 2023-11-29 21:04 | Emergency (ER) | payer OTHER ==
[2023-11-29 21:21] VITALS: BP 106/78; PULSE 92; RESP 18; TEMP 98.8; BMI 26.9
[2023-11-29] MEDS ORDERED: ACETAMINOPHEN 500 MG TABLET (FP) ONE (22:18)
[2023-11-29] MEDS ORDERED: IBUPROFEN 600 MG TABLET (FP) PO ONE (22:18)
[2023-11-29] MEDS: IBUPROFEN 600 MG TABLET (FP) PO ONE (22:20)
[2023-11-29] MEDS: ACETAMINOPHEN 500 MG TABLET (FP) PO ONE (22:21)
== END 2023-11-29 23:03 | disposition home or self-care (01) ==
LOC: JERFT 21:04
DX: U07.1 COVID-19 (principal); R09.81 Nasal congestion; R05.9 Cough, unspecified; R50.9 Fever, unspecified
CPT/HCPCS: 71046-TC-FY; 99283-25

== ENCOUNTER 2024-01-05 21:36 | Emergency (ER) | payer OTHER ==
[2024-01-05 21:46] VITALS: BP 127/86; PULSE 77; RESP 16; TEMP 99.3; BMI 26.9
[2024-01-05] MEDS ORDERED: ONDANSETRON 4 MG/2 ML VIAL ONE (23:41)
[2024-01-06] MEDS: ONDANSETRON 4 MG/2 ML VIAL IVPUSH ONE (00:12)
[2024-01-06] MEDS: LACTATED RINGERS SOLUTION 1000 ML INFUS.BAG IV ONE (00:12)
[2024-01-06 00:15] LABS: BASO % 0.6 % (0-2.0); EOS % 2.5 % (0-4.5); HEMATOCRIT 30.8 % (32.4-45.2); HEMOGLOBIN 10.3 GM/dL (10.7-15.3); LYMPH % 26.6 % (8-40); MCH 23.8 pg (25.7-33.7); MCHC 33.4 g/dl (32.0-36.0); MEAN CELL VOLUME 71.3 fl (80-96); MEAN PLT VOLUME 7.9 fl (7.5-11.1); MONO % 11.2 % (3.8-10.2); NEUT % 59.1 % (42.8-82.8); PLATELET COUNT 303 10^3/uL (134-434); RBC 4.32 M/mm3 (3.60-5.2); RDW 19.9 % (11.6-15.6); WHITE BLOOD COUNT 4.1 K/mm3 (4.0-10.0)
[2024-01-06 00:42] LABS: POTASSIUM 3.8 mmol/L (3.5-5.1)
[2024-01-06 00:44] LABS: CALCIUM 8.6 mg/dL (8.5-10.1)
[2024-01-06 00:46] LABS: ALBUMIN 3.5 g/dl (3.4-5.0); BLOOD UREA NITROGEN 5.9 mg/dL (7-18)
[2024-01-06 00:48] LABS: CREATININE 0.7 mg/dL (0.55-1.3)
[2024-01-06 00:49] LABS: BILIRUBIN,TOTAL 0.4 mg/dL (0.2-1); TOT PROT 6.6 g/dl (6.4-8.2)
[2024-01-06] MEDS ORDERED: MAG HYDROX/AL HYDROX/SIMETH 30 ML UNIT-DOSE CUP ONE (01:15)
[2024-01-06] MEDS ORDERED: SIMETHICONE 80 MG TAB.CHEW (FP) ONE (01:15)
[2024-01-06] MEDS: SIMETHICONE 80 MG TAB.CHEW (FP) PO ONE (01:30)
[2024-01-06] MEDS: MAG HYDROX/AL HYDROX/SIMETH 30 ML UNIT-DOSE CUP PO ONE (01:30)
[2024-01-06] MEDS: MAG HYDROX/ALH/SMC/DPHA/LIDO 240 ML MOUTHWASH MM ONE (01:36)
== END 2024-01-06 03:05 | disposition home or self-care (01) ==
LOC: JER 21:36
PROC: 3E033GC Introduction of Other Therapeutic Substance into Peripheral Vein, Percutaneous Approach (ICD-10-PCS; principal; 2024-01-06)
DX: R11.2 Nausea with vomiting, unspecified (principal); R10.13 Epigastric pain; K59.09 Other constipation
CPT/HCPCS: 36415; 80053; 83690; 84703; 85025; 96374; 99284-25

== ENCOUNTER 2024-05-26 21:42 | Inpatient (IN) | payer OTHER ==
[2024-05-26 21:46] VITALS: BMI 27.1
[2024-05-26] MEDS: SODIUM CHLORIDE FOR INHALATION 3 ML VIAL.NEB IH ONE (23:30)
[2024-05-27 00:39] VITALS: RESP 16
[2024-05-27] MEDS ORDERED: ACETAMINOPHEN INJECTION 100 ML ONE (02:35)
[2024-05-27] MEDS: ACETAMINOPHEN 1000 MG/100 ML BAG IVPB ONE (02:52)
[2024-05-27 03:02] LABS: BASO % 0.6 % (0-2.0); EOS % 3.3 % (0-4.5); HEMATOCRIT 37.6 % (32.4-45.2); HEMOGLOBIN 12.2 GM/dL (10.7-15.3); MCH 22.4 pg (25.7-33.7); MCHC 32.4 g/dl (32.0-36.0); MEAN CELL VOLUME 69.2 fl (80-96); MEAN PLT VOLUME 8.6 fl (7.5-11.1); MONO % 7.3 % (3.8-10.2); NEUT % 81.8 % (42.8-82.8); PLATELET COUNT 262 10^3/uL (134-434); RBC 5.43 M/mm3 (3.60-5.2); RDW 21.1 % (11.6-15.6); WHITE BLOOD COUNT 10.1 K/mm3 (4.0-10.0)
[2024-05-27 03:10] LABS: INR 1.1 (0.83-1.09); PROTHROMBIN TIME (PATIENT) 12.4 SEC (9.7-13.0)
[2024-05-27 03:12] LABS: ACTIVATED PTT 30.6 SECONDS (25.2-36.5)
[2024-05-27 03:20] LABS: POTASSIUM 3.8 mmol/L (3.5-5.1)
[2024-05-27 03:22] LABS: CALCIUM 8.9 mg/dL (8.5-10.1)
[2024-05-27 03:23] LABS: ALBUMIN 3.7 g/dl (3.4-5.0); BLOOD UREA NITROGEN 9.7 mg/dL (7-18)
[2024-05-27 03:26] LABS: CREATININE 0.9 mg/dL (0.55-1.3)
[2024-05-27 03:27] LABS: BILIRUBIN,TOTAL 0.4 mg/dL (0.2-1); TOT PROT 7.5 g/dl (6.4-8.2)
[2024-05-27] MEDS ORDERED: ALBUTEROL SO4 2.5/IPRATROPIUM 0.5 INH SOL 3 ML VIAL.NEB. NEB PRN (05:01)
[2024-05-27 05:14] LABS: ANISOCYTOSIS 2+; MACROCYTOSIS 0
[2024-05-27] MEDS: methylPREDNISolone NA SUCC 40 MG/1 ML VIAL IVPUSH ONE (05:37)
[2024-05-27] MEDS ORDERED: MAGNESIUM CITRATE 300 ML BOTTLE ONE (05:42)
[2024-05-27] MEDS ORDERED: ALBUTEROL SO4 2.5/IPRATROPIUM 0.5 INH SOL 3 ML VIAL.NEB. NEB ONE (05:42)
[2024-05-27] MEDS: MAGNESIUM CITRATE 300 ML BOTTLE PO ONE (05:50)
[2024-05-27] MEDS: ALBUTEROL SO4 2.5/IPRATROPIUM 0.5 INH SOL 3 ML VIAL.NEB. NEB ONE (05:50)
[2024-05-27 06:23] VITALS: TEMP 98.2
[2024-05-27 06:28] LABS: POTASSIUM 3.7 mmol/L (3.5-5.1)
[2024-05-27] MEDS: methylPREDNISolone NA SUCC 125 MG/2 ML VIAL IVPB SCH (06:30)
[2024-05-27 06:31] LABS: CALCIUM 8.5 mg/dL (8.5-10.1)
[2024-05-27 06:32] LABS: ALBUMIN 3.4 g/dl (3.4-5.0); BLOOD UREA NITROGEN 9.3 mg/dL (7-18); MAGNESIUM 1.9 mg/dL (1.8-2.4)
[2024-05-27 06:35] LABS: CREATININE 0.8 mg/dL (0.55-1.3); PHOSPHOROUS 3.2 mg/dL (2.5-4.9)
[2024-05-27 06:36] LABS: TOT PROT 6.8 g/dl (6.4-8.2)
[2024-05-27 06:40] LABS: BILIRUBIN,TOTAL 0.4 mg/dL (0.2-1)
[2024-05-27 06:42] LABS: HEMATOCRIT 33.4 % (32.4-45.2); HEMOGLOBIN 11.3 GM/dL (10.7-15.3); MCH 23.3 pg (25.7-33.7); MCHC 33.7 g/dl (32.0-36.0); MEAN CELL VOLUME 69.1 fl (80-96); MEAN PLT VOLUME 8.9 fl (7.5-11.1); PLATELET COUNT 246 10^3/uL (134-434); RBC 4.83 M/mm3 (3.60-5.2); RDW 21.2 % (11.6-15.6); WHITE BLOOD COUNT 8.6 K/mm3 (4.0-10.0)
[2024-05-27] MEDS ORDERED: TOPIRAMATE 25 MG TABLET PO PRN (06:42)
[2024-05-27] MEDS ORDERED: guaiFENesin/D-METHORPHAN HB 10 ML UNIT-DOSE CUPS PO PRN (09:51)
[2024-05-27] MEDS ORDERED: BUDESONIDE/FORMETEROL FUMARATE 160/4.5 mcg INHALER IH SCH (10:00)
[2024-05-27] MEDS ORDERED: PATIENT'S OWN MEDICATION (NON-FORMULARY) (Linaclotide [Linzess] 72 MCG Capsule) PO SCH (10:00)
[2024-05-27 10:41] VITALS: BP 99/71; PULSE 92
[2024-05-27] MEDS ORDERED: methylPREDNISolone NA SUCC 125 MG/2 ML VIAL IVPB SCH (11:00)
[2024-05-27] MEDS: ALBUTEROL SO4 2.5/IPRATROPIUM 0.5 INH SOL 3 ML VIAL.NEB. NEB SCH (11:00)
[2024-05-27] MEDS: ESCITALOPRAM OXALATE 10 MG TABLET PO SCH (11:02)
[2024-05-27] MEDS: ENOXAPARIN NA (PORCINE) 40 MG/0.4 ML DISP.SYRIN SQ SCH (11:02)
[2024-05-27] MEDS: POLYETHYLENE GLYCOL (HEALTHYLAX) 3350 17 GM PACKET PO SCH (11:02)
[2024-05-27] MEDS: methylPREDNISolone NA SUCC 40 MG/1 ML VIAL IVPB SCH (11:02)
[2024-05-27] MEDS ORDERED: methylPREDNISolone NA SUCC 40 MG/1 ML VIAL IVPB SCH (12:00)
[2024-05-27] MEDS ORDERED: MONTELUKAST NA 10 MG TABLET PO SCH (22:00)
[2024-05-28] MEDS ORDERED: levoFLOXacin 750 MG TABLET PO SCH (06:00)
[2024-05-28] MEDS ORDERED: predniSONE 20 MG TABLET (UD) PO SCH (10:00)
== END 2024-05-27 14:49 | disposition home or self-care (01) | DRG 203 ==
LOC: JER 21:42 → JERBED 05-27 03:57 → J8W 05-27 08:04 → OBSVTOIN 05-27 11:06
PROVIDERS: ADMIT Internal Medicine; ATTEND Internal Medicine
DX: J45.901 Unspecified asthma with (acute) exacerbation (principal); G40.909 Epilepsy, unspecified, not intractable, without status epilepticus; E11.9 Type 2 diabetes mellitus without complications; J06.9 Acute upper respiratory infection, unspecified; R13.10 Dysphagia, unspecified; Q90.9 Down syndrome, unspecified; R27.0 Ataxia, unspecified; R05.1 Acute cough; E03.9 Hypothyroidism, unspecified; K59.00 Constipation, unspecified; L80 Vitiligo
CPT/HCPCS: 0241U-QW; 36415; 71046-TC-FY; 71250-TC; 80053; 83735; 84100; 84703; 85025; 85027; 85610; 85730; 87070; 87205; 87899; 93005; 93010; 99285-25; G0378; J0131

== ENCOUNTER 2024-06-26 18:41 | Emergency (ER) | payer OTHER ==
[2024-06-26 18:50] VITALS: BP 117/81; PULSE 90; RESP 16; TEMP 98.6; BMI 27.1
[2024-06-26] MEDS ORDERED: IBUPROFEN 600 MG TABLET (FP) PO ONE (20:29)
[2024-06-26] MEDS: IBUPROFEN 600 MG TABLET (FP) PO ONE (20:30)
== END 2024-06-26 21:23 | disposition home or self-care (01) ==
LOC: JERFT 18:41
DX: B35.1 Tinea unguium (principal)
CPT/HCPCS: 99283-25

== ENCOUNTER 2024-11-04 23:26 | Emergency (ER) | payer OTHER ==
[2024-11-04 23:57] VITALS: BP 114/77; PULSE 95; RESP 16; TEMP 98.6; BMI 26.9
[2024-11-05] MEDS ORDERED: ACETAMINOPHEN 500 MG TABLET (FP) ONE (00:51)
[2024-11-05] MEDS: ACETAMINOPHEN 500 MG TABLET (FP) PO ONE (00:57)
== END 2024-11-05 01:49 | disposition home or self-care (01) ==
LOC: JER 23:26
DX: M79.675 Pain in left toe(s) (principal); W20.8XXA Other cause of strike by thrown, projected or falling object, initial encounter
CPT/HCPCS: 73630-TC-LT; 99283-25

== ENCOUNTER 2025-03-01 22:41 | Emergency (ER) | payer OTHER ==
[2025-03-01 22:52] VITALS: BP 118/74; RESP 18; TEMP 98.3; BMI 26.9
[2025-03-02 00:19] VITALS: PULSE 87
[2025-03-02] MEDS ORDERED: AZITHROMYCIN 500 MG TABLET ONE (01:02)
[2025-03-02] MEDS: AZITHROMYCIN 250 MG TABLET PO ONE (01:03)
[2025-03-02] MEDS ORDERED: CEFTRIAXONE 1 GM/50 ML BAG ONE (01:05)
[2025-03-02 01:06] LABS: MCHC 31.8 g/dl (32.2-35.5); MEAN CELL VOLUME 73.0 fl (79.4-94.8); MEAN PLT VOLUME 10.1 fl (9.4-12.3); RDW 19.9 % (12.1-16.8)
[2025-03-02] MEDS: CEFTRIAXONE 1,000 MG in DEXTROSE 5%-WATER - 50 ML IVPB ONE (01:09)
[2025-03-02 01:26] LABS: GLUCOSE,RANDOM 92.0 mg/dL (74-106); TOT PROT 6.7 g/dl (6.4-8.2)
[2025-03-02 01:27] LABS: CO2 27.0 mmol/L (21-32)
[2025-03-02 01:29] LABS: ALK PHOS 61.0 U/L (40-150)
[2025-03-02 01:31] LABS: SGOT/AST 21.0 U/L (5-34); SGPT/ALT 23.0 U/L (0-55)
[2025-03-02 01:32] LABS: CREATININE 0.75 mg/dL (0.55-1.3)
== END 2025-03-02 02:08 | disposition home or self-care (01) ==
LOC: JER 22:41
DX: U07.1 COVID-19 (principal); R05.9 Cough, unspecified; R09.81 Nasal congestion; R94.31 Abnormal electrocardiogram [ECG] [EKG]
CPT/HCPCS: 36415; 71046-TC-FY; 71250-TC; 80053; 82308; 84703; 85025; 93005; 93010; 96365; 99285-25

== ENCOUNTER 2025-03-23 22:58 | Inpatient (IN) | payer OTHER ==
[2025-03-24] MEDS ORDERED: methylPREDNISolone NA SUCC 125 MG/2 ML VIAL ONE (02:18)
[2025-03-24] MEDS ORDERED: ALBUTEROL SO4 2.5/IPRATROPIUM 0.5 INH SOL 3 ML VIAL.NEB. NEB ONE (02:18)
[2025-03-24] MEDS: methylPREDNISolone NA SUCC 125 MG/2 ML VIAL IVPB ONE (02:28)
[2025-03-24] MEDS: ALBUTEROL SO4 2.5/IPRATROPIUM 0.5 INH SOL 3 ML VIAL.NEB. NEB ONE (02:29)
[2025-03-24] MEDS ORDERED: AZITHROMYCIN IVPB 500 MG/250 ML BAG IVPB ONE (02:31)
[2025-03-24] MEDS ORDERED: CEFTRIAXONE 1 GM/50 ML BAG ONE (02:33)
[2025-03-24] MEDS: CEFTRIAXONE 1,000 MG in DEXTROSE 5%-WATER - 50 ML IVPB ONE (02:43)
[2025-03-24 03:17] LABS: MCHC 32.2 g/dl (32.2-35.5); MEAN CELL VOLUME 76.8 fl (79.4-94.8); MEAN PLT VOLUME 9.9 fl (9.4-12.3); RDW 20.6 % (12.1-16.8)
[2025-03-24 03:34] LABS: GLUCOSE,RANDOM 85.0 mg/dL (74-106); TOT PROT 6.3 g/dl (6.4-8.2)
[2025-03-24 03:35] LABS: CO2 32.0 mmol/L (21-32)
[2025-03-24 03:37] LABS: ALK PHOS 61.0 U/L (40-150)
[2025-03-24] MEDS: AZITHROMYCIN IVPB 500 MG in DEXTROSE 5%-WATER - 250 ML IVPB ONE (03:37)
[2025-03-24 03:40] LABS: CREATININE 0.8 mg/dL (0.55-1.3); SGOT/AST 20.0 U/L (5-34); SGPT/ALT 15.0 U/L (0-55)
[2025-03-24] MEDS ORDERED: guaiFENesin/D-METHORPHAN HB 10 ML UNIT-DOSE CUPS PO PRN (06:00)
[2025-03-24] MEDS ORDERED: ALBUTEROL SO4 2.5/IPRATROPIUM 0.5 INH SOL 3 ML VIAL.NEB. NEB PRN (06:00)
[2025-03-24] MEDS ORDERED: ONDANSETRON 4 MG/2 ML VIAL IVPUSH PRN (06:11)
[2025-03-24] MEDS: SODIUM CHLORIDE 1,000 ML IV SCH (06:16)
[2025-03-24] MEDS: BACLOFEN 10 MG TABLET (FP) PO ONE (06:27)
[2025-03-24] MEDS: MAGNESIUM OXIDE 400 MG TABLET (FP) PO ONE (06:27)
[2025-03-24] MEDS: predniSONE 20 MG TABLET (UD) PO SCH (09:46)
[2025-03-24] MEDS: ENOXAPARIN NA (PORCINE) 40 MG/0.4 ML DISP.SYRIN SQ SCH (09:46)
[2025-03-24] MEDS: PANTOPRAZOLE 40 MG TABLET PO SCH (09:47)
[2025-03-24] MEDS: FOLIC ACID 1 MG TABLET (FP) PO SCH (09:47)
[2025-03-24] MEDS: ESCITALOPRAM OXALATE 10 MG TABLET PO SCH (09:47)
[2025-03-24] MEDS: SENNOSIDES/DOCUSATE COMBO (SENNA PLUS) TABLET (UD) PO SCH (09:47)
[2025-03-24] MEDS: PREGABALIN 50 MG CAPSULE PO SCH (13:18)
[2025-03-24 15:07] VITALS: BMI 25.9
[2025-03-24] MEDS: MONTELUKAST NA 10 MG TABLET PO SCH (21:24)
[2025-03-24] MEDS: MELATONIN 5 MG TABLETS PO PRN (23:48)
[2025-03-25 07:23] LABS: MCHC 31.9 g/dl (32.2-35.5); MEAN CELL VOLUME 75.6 fl (79.4-94.8); MEAN PLT VOLUME 10.4 fl (9.4-12.3); RDW 20.3 % (12.1-16.8)
[2025-03-25 07:47] LABS: GLUCOSE,RANDOM 103.0 mg/dL (74-106); TOT PROT 6.0 g/dl (6.4-8.2)
[2025-03-25 07:48] LABS: CO2 28.0 mmol/L (21-32)
[2025-03-25 07:50] LABS: ALK PHOS 53.0 U/L (40-150)
[2025-03-25 07:53] LABS: CREATININE 0.67 mg/dL (0.55-1.3); SGOT/AST 16.0 U/L (5-34); SGPT/ALT 10.0 U/L (0-55)
[2025-03-26] MEDS: ACETAMINOPHEN 325 MG TABLET (FP) PO ONE (11:29)
[2025-03-26] MEDS: LIDOCAINE 5% TOPICAL PATCH TP SCH (11:31)
[2025-03-26] MEDS: LIDOCAINE PATCH REMOVAL MC SCH (21:39)
[2025-03-27] MEDS: ACETAMINOPHEN 325 MG TABLET (FP) PO ONE (08:28)
[2025-03-27 08:57] LABS: GLUCOSE,RANDOM 74.0 mg/dL (74-106); TOT PROT 5.7 g/dl (6.4-8.2)
[2025-03-27 08:58] LABS: CO2 25.0 mmol/L (21-32)
[2025-03-27 09:00] LABS: ALK PHOS 50.0 U/L (40-150)
[2025-03-27 09:03] LABS: CREATININE 0.83 mg/dL (0.55-1.3); SGOT/AST 17.0 U/L (5-34); SGPT/ALT 13.0 U/L (0-55)
[2025-03-27 21:10] VITALS: RESP 18
[2025-03-27] MEDS: ACETAMINOPHEN 325 MG TABLET (FP) PO PRN (21:45)
[2025-03-28 14:17] LABS: ABSOLUTE IMMATURE GRANULOCYTES 0.15 x10^3/uL (0.0-0.031); BASOPHILS # 0.01 x10^3/uL (0.01-0.08); EOSINOPHIL % 0.1 % (0.7-5.8); EOSINOPHILS # 0.01 x10^3/uL (0.04-0.36); MCHC 32.3 g/dl (32.2-35.5); MEAN CELL VOLUME 75.4 fl (79.4-94.8); MEAN PLT VOLUME 10.8 fl (9.4-12.3); MONOCYTE # 0.38 x10^3/uL (0.24-0.86); MONOCYTE % 4.0 % (4.7-12.5); RDW 20.9 % (12.1-16.8)
[2025-03-28 14:37] LABS: GLUCOSE,RANDOM 114.0 mg/dL (74-106)
[2025-03-28 14:38] LABS: TOT PROT 6.0 g/dl (6.4-8.2)
[2025-03-28 14:39] LABS: CO2 25.0 mmol/L (21-32)
[2025-03-28 14:41] LABS: ALK PHOS 63.0 U/L (40-150)
[2025-03-28 14:43] LABS: SGOT/AST 18.0 U/L (5-34); SGPT/ALT 17.0 U/L (0-55)
[2025-03-28 14:44] LABS: CREATININE 0.76 mg/dL (0.55-1.3)
[2025-03-28] MEDS ORDERED: guaiFENesin 200 MG/10 ML 10 ML UNIT-DOSE CUPS PO PRN (17:26)
[2025-03-29] MEDS ORDERED: BENZONATATE 200 MG CAPSULE PO PRN (09:31)
[2025-03-29 10:06] VITALS: BP 95/67; PULSE 73; TEMP 98.2
[2025-03-30] MEDS ORDERED: predniSONE 20 MG TABLET (UD) PO SCH (10:00)
== END 2025-03-29 14:19 | disposition home or self-care (01) | DRG 194 ==
LOC: JER 22:58 → JERBED 03-24 03:56 → J8W 03-24 05:16 → OBSVTOIN 03-24 09:18
PROVIDERS: ADMIT Hospitalist; ATTEND Nurse Practitioner Acute Care
DX: J18.9 Pneumonia, unspecified organism (principal); D83.9 Common variable immunodeficiency, unspecified; G11.3 Cerebellar ataxia with defective DNA repair; Q90.9 Down syndrome, unspecified; J45.909 Unspecified asthma, uncomplicated; F32.9 Major depressive disorder, single episode, unspecified; R13.10 Dysphagia, unspecified; K59.09 Other constipation; G43.909 Migraine, unspecified, not intractable, without status migrainosus
CPT/HCPCS: 36415; 71045-TC-FY; 80053; 83735; 84100; 84484; 85025; 85027; 87040; 87637-QW; 93005; 93010; 93970-TC; 94010; 97116-GP; 97162-GP; 99285-25; G0378; J0475